=== PATIENT | male | born 1940 | race Two or more races ===

== ENCOUNTER 2020-09-12 08:29 | Inpatient (IN) | payer MEDICARE, SELFPAY ==
[2020-09-12] VITALS (14 sets, daily range): BP systolic 104–146; BP diastolic 64–101; PULSE 72–145; RESP 15–20; TEMP 36.3–37.2; O2SAT 94–99; BMI 28.8
--- NOTE | 2020-09-12 08:49 | XR_ITS ---
EXAMINATION: XR CHEST CLINICAL INFORMATION: Chest pain COMPARISON: Chest radiographs 06/14/2019 TECHNIQUE: Portable upright AP view of the chest was obtained. FINDINGS: There is mild coarsening bronchiolar markings. No airspace consolidation or definite groundglass opacity or effusion. The heart is normal in size. The vascularity is normal. The hilar and mediastinal contours are unremarkable. No visible acute bony abnormality. XR/XR chest 1V IMPRESSION: Mild coarsening medial markings. Lungs otherwise clear.
--- NOTE | 2020-09-12 08:49 | ECG_ITS ---
Test Reason : HIGH HR Blood Pressure : / mmHG Vent. Rate : 143 BPM Atrial Rate : 286 BPM P-R Int : 000 ms QRS Dur : 072 ms QT Int : 302 ms P-R-T Axes : 257 028 -19 degrees QTc Int : 466 ms Atrial flutter with 2:1 A-V conduction Abnormal ECG When compared with ECG of 14-JUN-2019 17:20, Atrial flutter has replaced Sinus rhythm Vent. rate has increased BY 47 BPM Non-specific change in ST segment in Inferior leads Referred By: Generic ED Physician Electronically Signed By:Onofre Gomez
--- NOTE | 2020-09-12 08:54 | ED.CHESTPAIN ---
HPI - Chest Pain General Chief Complaint: Chest Pain Stated Complaint: chest pain Time Seen by Provider: 09/12/20 08:54 Source: patient Mode of arrival: ambulatory Limitations: no limitations History of Present Illness HPI narrative: chest pain last night at rest lasted a few hours then went away on his own. convinced him to come in this morning complaint: chest heaviness Onset (ago): hour(s) Timing of current episode: constant Pain location: substernal Pain radiation: other (upper chest) Severity: mild Quality: tightness Exacerbating factors: nothing Risk Factors Coronary artery disease risk factors: hypertension Related Data Allergies Allergy/AdvReac Type Severity Reaction Status Date / Time avocado [AVOCADO] Allergy Severe DIFFICULTY Unverified 06/15/20 14:52 BREATHING Review of Systems Constitutional: Constitutional: Reports no additional constitutional complaints Eyes: Eyes: Reports no additional eye complaints ENT: Denies dizziness Cardiovascular: Cardiovascular: Reports no additional cardiovascular complaints Respiratory: Respiratory: Reports as per HPI Gastrointestinal: Gastrointestinal: Reports no additional gastrointestinal complaints Musculoskeletal: Musculoskeletal: Reports no additional musculoskeletal complaints Integumentary/Breasts: Skin/Breast: Denies rash Neurologic: Reports system reviewed and no additional complaints, except as documented, Denies dizziness and Denies Sensory deficit (Neuro) Psychiatric: Psychiatric: Denies anxiety [facility] Past Medical History Medical History (Updated 09/12/20 @ 11:07 by Aram Vincent MD) Amputation of left index finger Hyperlipidemia Hypertension Family History Family History (Updated 09/12/20 @ 11:06 by Laura South NP) Other Hypertension Social History Social History Household Members: Spouse Alcohol intake: current Alcohol intake frequency: holidays/special occasions only Smoking Status: Never smoker Use of substances other than those prescribed or required for medical reasons: No Advance Directives: No Advance Directives Information Provided: No Physical Exam Vital Signs: Vital Signs: Last Vital Signs Temp 97.6 F 09/12/20 08:34 Pulse 85 09/12/20 10:49 Resp 18 09/12/20 10:49 BP 118/76 09/12/20 10:49 Pulse Ox 97 09/12/20 10:49 Body Mass Index 28.8 Const: General: healthy appearing Nutritional Appearance: average body habitus Orientation/consciousness: oriented to person and patient oriented x3 Limitations: no limitations HENMT: Head: Yes normal to inspection Ears: external ears normal General nose exam: Normal external nose present Mouth: Normal oral and palatal mucosa present and oropharynx normal Throat: Yes posterior oropharynx normal Eyes: General: appearance normal, both eyes and all related structures Neck: Other: supple Neck: Yes normal visual inspection Chest: Chest palpation & inspection: normal inspection of the chest Resp: Auscultation: clear to auscultation bilaterally Cardio: Jugular venous distension: no JVD Rate: tachycardic Rhythm: regular rhythm GI: Inspection: Yes normal to inspection Palpation (GI): Soft to palpation, nontender and No hepatosplenomegaly present Auscultation: normal bowel sounds : General: Yes no CVA tenderness Back/Spine/Pelvis: Back: no CVA tenderness Skin: General skin exam: no rashes or lesions noted Neuro: General: oriented to person and patient oriented x3 Cranial nerves: Yes CN's II-XII intact bilaterally Motor exam (neuro): 5/5 motor strength present throughout Sensory Exam: No Sensory deficit (Neuro) Extrem: General: Yes normal to inspection Psych: Appearance: grossly normal Course Course Course Narrative: Patient now in slow atrial flutter will admit MDM - Chest Pain Differential Diagnosis Differential diagnosis: Likely unstable angina pectoris and chest pain Differential diagnosis: atrial flutter Lab Data Result diagrams: 09/12/20 09:06 09/12/20 09:06 Labs: Lab Results 09/12/20 09/12/20 09/12/20 Range/Units 09:06 09:06 09:06 WBC 6.1 (4.8-10.8) X10*3/uL RBC 3.69 L (4.60-5.80) X10*6/uL Hgb 13.1 L (14.0-18.0) g/dl Hct 38.3 L (42-52) % MCV 103.8 H (80-98) fL MCH 35.5 H (27.0-33.0) pg MCHC 34.2 (31.0-36.0) g/dl RDW 12.6 (11.0-16.0) % Plt Count 136 L (160-400) X10*3/uL MPV 10.3 (9.4-12.4) fL Immature Gran % (Auto) 0.3 (0.0-0.4) % Neut % (Auto) 74.5 H (45-73) % Lymph % (Auto) 14.8 L (20-40) % [place] % (Auto) 8.8 (2-11) % Eos % (Auto) 1.1 (0-4) % Baso % (Auto) 0.5 (0-2) % Lymph # (Auto) 0.9 L (1.2-4.9) X10*3/uL [place] # (Auto) 0.5 (0.1-1.2) X10*3/uL Eos # (Auto) 0.1 (0.0-0.4) X10*3/uL Baso # (Auto) 0.0 (0.0-0.2) X10*3/uL Abs Immat Gran (auto) 0.02 (0.00-0.03) X10*3/uL Absolute Neuts (auto) 4.6 (2.0-8.3) X10*3/uL Absolute Nucleated RBC 0.000 (0.0-0.012) X10*3/uL Nucleated RBC % (auto) 0.0 (0.0-0.2) /100WBC PT (10.8-13.0) SEC INR (0.9-1.1) APTT (24.1-38.0) SEC Hold Blue Top Cancelled Sodium 131 L (135-145) mmol/L Potassium 4.8 (3.3-5.1) mmol/l Chloride 103 (96-108) mmol/L Carbon Dioxide 18 L (22-29) mmol/L Anion Gap 15 (12-20) BUN 17 H (9-16) mg/dL Creatinine 1.44 H (0.5-1.4) mg/dL Estim Creat Clear Calc 41.6 Estimated GFR 47 Random Glucose 187 H (60-115) mg/dL Calcium 8.0 L (8.4-10.2) mg/dL Troponin I High Sens (<3.5-35.0) ng/L COVID-19 ([facility]UAN ANTONIO) (Negative) COVID-19 Clin Com 09/12/20 09/12/20 09/12/20 Range/Units 09:06 09:08 10:16 WBC (4.8-10.8) X10*3/uL RBC (4.60-5.80) X10*6/uL Hgb (14.0-18.0) g/dl Hct (42-52) % MCV (80-98) fL MCH (27.0-33.0) pg MCHC (31.0-36.0) g/dl RDW (11.0-16.0) % Plt Count (160-400) X10*3/uL MPV (9.4-12.4) fL Immature Gran % (Auto) (0.0-0.4) % Neut % (Auto) (45-73) % Lymph % (Auto) (20-40) % [place] % (Auto) (2-11) % Eos % (Auto) (0-4) % Baso % (Auto) (0-2) % Lymph # (Auto) (1.2-4.9) X10*3/uL [place] # (Auto) (0.1-1.2) X10*3/uL Eos # (Auto) (0.0-0.4) X10*3/uL Baso # (Auto) (0.0-0.2) X10*3/uL Abs Immat Gran (auto) (0.00-0.03) X10*3/uL Absolute Neuts (auto) (2.0-8.3) X10*3/uL Absolute Nucleated RBC (0.0-0.012) X10*3/uL Nucleated RBC % (auto) (0.0-0.2) /100WBC PT 17.6 H (10.8-13.0) SEC INR 1.5 H (0.9-1.1) APTT 36.8 (24.1-38.0) SEC Hold Blue Top Sodium (135-145) mmol/L Potassium (3.3-5.1) mmol/l Chloride (96-108) mmol/L Carbon Dioxide (22-29) mmol/L Anion Gap (12-20) BUN (9-16) mg/dL Creatinine (0.5-1.4) mg/dL Estim Creat Clear Calc Estimated GFR Random Glucose (60-115) mg/dL Calcium (8.4-10.2) mg/dL Troponin I High Sens 7.9 (<3.5-35.0) ng/L COVID-19 ([facility]UAN ANTONIO) Negative (Negative) COVID-19 Clin Com See Note ECG Data ECG #1: Attestation: I personally reviewed and interpreted this ECG as follows: Interpretation: Atrial flutter rate 150, no st or twave changes Critical Care Time Critical Care Time Critical Care Time: Yes Total Critical Care Time: 35 Attestation: I spent 35 minutes of critical care, with interventions, assessments, speaking to patient, consultants, and family. Discharge Plan Discharge Clinical Impression: Chest pain, Atrial flutter Patient Disposition: Admitted As Inpatient
[2020-09-12 09:12] LABS: MANUAL DIFF FLAG NO
[2020-09-12] MEDS: Aspirin Enteric Coated 81 MG TABLET.DR 162 MG PO (09:15)
[2020-09-12] MEDS: Enoxaparin Sodium 100 MG/ML SYRINGE 80 MG SUBCUT (09:16)
[2020-09-12] MEDS: dilTIAZem HCL 50 MG/10 ML VIAL 10 MG IVPUSH (09:17)
[2020-09-12] MEDS: dilTIAZem HCL 125 MG in 0.9 % Sodium Chloride 100 ML 10 MG IVCONT (09:18)
[2020-09-12 09:25] LABS: INTERNATIONAL NORM RATIO 1.5 (0.9-1.1); Prothrombin Time 17.6 SEC (10.8-13.0)
[2020-09-12 09:25] LABS: Basophils Percent Auto 0.5 % (0-2); Eosinophils Absolute Auto 0.1 X10*3/uL (0.0-0.4); Eosinophils Percent Auto 1.1 % (0-4); Hematocrit 38.3 % (42-52); Hemoglobin 13.1 g/dl (14.0-18.0); Imm Gran Abs Auto 0.02 X10*3/uL (0.00-0.03); Imm Gran Pct Auto 0.3 % (0.0-0.4); Lymphocytes Absolute Auto 0.9 X10*3/uL (1.2-4.9); Lymphocytes Percent Auto 14.8 % (20-40); Mean Corpuscular HGB Conc 34.2 g/dl (31.0-36.0); Mean Corpuscular Hemoglobin 35.5 pg (27.0-33.0); Mean Corpuscular Volume 103.8 fL (80-98); Mean Platelet Volume 10.3 fL (9.4-12.4); Monocytes Absolute Auto 0.5 X10*3/uL (0.1-1.2); Monocytes Percent Auto 8.8 % (2-11); Neutrophils Absolute Auto 4.6 X10*3/uL (2.0-8.3); Neutrophils Percent Auto 74.5 % (45-73); Platelet Count 136 X10*3/uL (160-400); Red Blood Count 3.69 X10*6/uL (4.60-5.80); Red Cell Distribution Width 12.6 % (11.0-16.0); White Blood Count 6.1 X10*3/uL (4.8-10.8)
[2020-09-12 09:27] LABS: Partial Thromboplastin Time 36.8 SEC (24.1-38.0)
[2020-09-12 09:51] LABS: Anion Gap 15 (12-20); Blood Urea Nitrogen 17 mg/dL (9-16); Carbon Dioxide 18 mmol/L (22-29); Chloride 103 mmol/L (96-108); Creatinine Clr Calc Pharmacy 41.6; Estimated Glomerular Filt Rate 47; Glucose Random 187 mg/dL (60-115); Potassium 4.8 mmol/l (3.3-5.1); Sodium 131 mmol/L (135-145)
--- NOTE | 2020-09-12 09:55 | PC.NURSE ---
S/P Cardizem bolus and gtt intiated HR now 90s, BP has trended down SBP 125 Pt continues to feel asymptomatic. Dr Vincent updated.
[2020-09-12 09:57] LABS: Troponin-I High Sensitivity 7.9 ng/L (<3.5-35.0)
--- NOTE | 2020-09-12 10:14 | PC.NURSE ---
Cardizem gtt decresed to 5mg/hr
[2020-09-12 10:39] LABS: COVID-19 Test Negative (Negative)
--- NOTE | 2020-09-12 11:03 | PM.IMHP ---
History of Present Illness Date of Service: 09/12/20 <Laura South NP - Last Filed: 09/12/20 12:24> Chief Complaint: Chest pressure <Laura South NP - Last Filed: 09/12/20 12:24> 80 year old man Presenting with chest pressure that started this morning. He reported no radiation or other associated symptoms. He denies any history of cardiac disease. in May of 2019 patient was admitted for palpitations and was found to have new onset atrial fibrillation with rapid ventricular response. He underwent synchronized cardioversion and was started on amiodarone drip. He was discharged on amiodarone and no anticoagulation likely due to history of GI bleed And alcohol use at the time. He denies any discomfort at this time. Upon arrival to the ER he was found to be in atrial flutter with heart rate in the 140s. His heart rate has improved significantlyHis initial troponin was 7.9. He was noted to have mildly decreased sodium of 131. Chronic kidney disease. Coronavirus PCR negative. He was given a dose of aspirin, therapeutic Lovenox and started on diltiazem drip. He be admitted for further management treatment of new onset atrial flutter. <Laura South NP - Last Filed: 09/12/20 12:24> Review of Systems Review of Systems: Denies any recent fever chills or decrease in appetite respiratory denies any shortness of breath coverage production cardiovascular See above gastrointestinal denies any dysphagia abdominal pain nausea vomiting or diarrhea genitourinary denies any dysuria frequency or hematuria musculoskeletal denies any joint pain or swelling neuropsych denies any weakness or seizures all other systems reviewed are negative <Laura South NP - Last Filed: 09/12/20 12:24> ENT: Denies dizziness <Laura South NP - Last Filed: 09/12/20 12:24> Neurologic: Reports system reviewed and no additional complaints, except as documented, Denies dizziness and Denies Sensory deficit (Neuro) <Laura South NP - Last Filed: 09/12/20 12:24> [facility] Medical History: Medical History Amputation of left index finger Hyperlipidemia Hypertension <MIKKI Clemens Last Filed: 09/12/20 12:24> Family History: Family History (Updated 09/12/20 @ 11:06 by Laura South NP) Other Hypertension <Laura South NP - Last Filed: 09/12/20 12:24> Social History: Social History (Updated 09/12/20 @ 11:07 by Laura South NP) Household Members: Spouse and Family Housing: House Alcohol intake: current Alcohol intake frequency: holidays/special occasions only Smoking Status: Never smoker service: No Current occupational status: retired <Laura South NP - Last Filed: 09/12/20 12:24> Meds Allergies/Adverse reactions: Allergies Allergy/AdvReac Type Severity Reaction Status Date / Time avocado [AVOCADO] Allergy Severe DIFFICULTY Verified 09/12/20 21:12 BREATHING <Laura South NP - Last Filed: 09/12/20 12:24> Home medications: Home Medications Medication Instructions Recorded Confirmed Type cyanocobalamin (vitamin B-12) 1,000 mcg PO DAILY 09/12/20 09/12/20 History folic acid 1 mg PO DAILY 09/12/20 09/12/20 History thiamine HCl (vitamin B1) 100 mg PO DAILY 09/12/20 09/12/20 History <Laura South NP - Last Filed: 09/12/20 12:24> Physical Exam Vital Signs and Narrative: Vital Signs: Last Vital Signs Temp 97.6 F 09/12/20 08:34 Pulse 85 09/12/20 10:49 Resp 18 09/12/20 10:49 BP 118/76 09/12/20 10:49 Pulse Ox 97 09/12/20 10:49 Body Mass Index 28.8 <Laura South NP - Last Filed: 09/12/20 12:24> Appearing in no acute distress head is normocephalic atraumatic eyes pupils are PERRLA sclera is anicteric mouth throat mucous membranes are intact and moist neck is supple no lymphadenopathy, no JVD noted lung sounds are clear to auscultation heart regular rate irregularly irregular positive bowel sounds, abdomen is soft, nontender neuro patient is alert x3, no focal deficits <Laura South NP - Last Filed: 09/12/20 12:24> Neuro: Sensory Exam: No Sensory deficit (Neuro) <Laura South NP - Last Filed: 09/12/20 12:24> Results Labs CBC and Chem 7: : 09/17/20 05:59 09/16/20 08:50 <Laura South NP - Last Filed: 09/12/20 12:24> Labs: Laboratory Results - last 24 hr 09/12/20 09/12/20 09/12/20 09:06 09:06 09:06 MCV 103.8 H MCH 35.5 H MCHC 34.2 RDW 12.6 Plt Count 136 L MPV 10.3 Immature Gran % (Auto) 0.3 Neut % (Auto) 74.5 H Lymph % (Auto) 14.8 L [place] % (Auto) 8.8 Eos % (Auto) 1.1 Baso % (Auto) 0.5 Lymph # (Auto) 0.9 L [place] # (Auto) 0.5 Eos # (Auto) 0.1 Baso # (Auto) 0.0 Abs Immat Gran (auto) 0.02 Absolute Neuts (auto) 4.6 Absolute Nucleated RBC 0.000 Nucleated RBC % (auto) 0.0 PT INR APTT Hold Blue Top Cancelled Anion Gap 15 Creatinine 1.44 H Estim Creat Clear Calc 41.6 Estimated GFR 47 Random Glucose 187 H Calcium 8.0 L Troponin I High Sens COVID-19 ([facility] ANTONIO) COVID-19 Clin Com 09/12/20 09/12/20 09/12/20 09:06 09:08 10:16 MCV MCH MCHC RDW Plt Count MPV Immature Gran % (Auto) Neut % (Auto) Lymph % (Auto) [place] % (Auto) Eos % (Auto) Baso % (Auto) Lymph # (Auto) [place] # (Auto) Eos # (Auto) Baso # (Auto) Abs Immat Gran (auto) Absolute Neuts (auto) Absolute Nucleated RBC Nucleated RBC % (auto) PT 17.6 H INR 1.5 H APTT 36.8 Hold Blue Top Anion Gap Creatinine Estim Creat Clear Calc Estimated GFR Random Glucose Calcium Troponin I High Sens 7.9 COVID-19 (JUAN ANTONIO) Negative COVID-19 Clin Com See Note <Laura South NP - Last Filed: 09/12/20 12:24> Imaging Radiologist's Impressions: Impressions Chest X-Ray 09/12/20 08:49 IMPRESSION: Mild coarsening medial markings. Lungs otherwise clear. <Laura South NP - Last Filed: 09/12/20 12:24> Assessment and Plan (1) Atrial flutter: Qualifiers: Atrial flutter type: typical Qualified Code(s): I48.3 - Typical atrial flutter <Laura South NP - Last Filed: 09/12/20 12:24> Status: Acute <Laura South NP - Last Filed: 09/12/20 12:24> 80 year old man admitted with new atrial flutter with history of atrial fibrillation in the past. New onset atrial flutter. Patient currently on Cardizem drip with controlled rate but still in atrial flutter. Did receive 1 dose of therapeutic Lovenox in the ER. Cardiology consultation, echocardiogram. Blood pressure was elevated on admission however did improve significantly. Check Mag and TSH. Monitor on telemetry. [id number] score 3, will need to be considered for anticoagulation. Hypertension. Stable blood pressure. CKD. Seems at baseline. Avoid nephrotoxins. Anemia. Chronic. No signs of bleeding. DVT prophylaxis Heparin Case discussed with Dr. Ga Full code <Laura South NP - Last Filed: 09/12/20 12:24>
[2020-09-12 12:14] LABS: Magnesium 2.2 mg/dL (1.6-2.6)
--- NOTE | 2020-09-12 12:21 | PC.NURSE ---
PT UNABLE TO GIVE UPDATED, ACCURATE LOCATION OF PHARMACY. CALL MADE OUT TO DAUGHTER DIANDRA TO ACQUIRE LIST [phone]
--- NOTE | 2020-09-12 12:28 | PC.NURSE ---
PER VIRIDIANA, PT HAS NOT TAKEN ANY MEDICATIONS FOR SEVERAL MONTHS NOW, REFUSING TO SEE HIS PCP.
[2020-09-12 12:33] LABS: Thyroid Stimulating Hormone 0.79 uIU/mL (0.32-4.0)
--- NOTE | 2020-09-12 13:59 | PC.NURSE ---
CALLED UP TO C TO GIVE REPORT
[2020-09-12 14:50] LABS: Troponin-I High Sensitivity 6.6 ng/L (<3.5-35.0)
[2020-09-12 14:52] LABS: Ethanol < 10 mg/dL
--- NOTE | 2020-09-12 15:54 | PM.EVENT ---
Event Note Date of Service: 09/12/20 Event Note: admission note the patient was seen and evaluated with Laura South NP. I agree with her note, assessment and plan with the following. A 80 years old lady with PMHx of HTN, HLD , AFib not on AC for GI bleed who presented to the hospital complaining of chest pressure since the morning. denies nausea, vomiting or shortness of breath. found to be in A.Flutter in ED w RvR. started on Cardizem drip and full dose Lovenox. A.Flutter w RvR Continue Cardizem drip To hold anticoagulation after the 1st dose of Lovenox Given telemetry To get cardiology evaluation Rest of evaluations by ATHLETIC EQUIPMENT CUSTODIAN note.
[2020-09-12 17:33] LABS: Glucose, Whole Blood 124 mg/dL (60-115)
[2020-09-12] MEDS: Heparin Sodium,Porcine 5,000 UNIT/ML VIAL 5000 UNIT SUBCUT (17:47)
[2020-09-12] MEDS: 0.9 % Sodium Chloride Flush 3 ML SYRINGE IVFLUSH (17:47)
[2020-09-13] VITALS (10 sets, daily range): BP systolic 101–157; BP diastolic 67–93; PULSE 62–133; RESP 16–20; TEMP 36.1–37; O2SAT 94–100
--- NOTE | 2020-09-13 | CT_ITS ---
CT HEAD WITHOUT CONTRAST CLINICAL INFORMATION: Altered mental status. Atrial fibrillation. Rule out stroke. COMPARISON: Head CT 06/14/2019. TECHNIQUE: Contiguous axial imaging was performed from the skull base to vertex without intravenous administration of contrast. This CT examination was performed using dose optimization techniques as appropriate, variously including the following: *Automated exposure control *Adjustment of mA and/or kV according to patient size (this includes techniques or standardized protocols for targeted exams where dose is matched to indication/reason for exam; i.e. extremities or head) *Use of iterative reconstruction technique FINDINGS: There is temporal lobe predominant cerebral volume loss and there is mild chronic microangiopathy. No dense cerebral artery sign. There is no intracranial hemorrhage, hydrocephalus, extra-axial surface collection, midline shift, or other herniation pattern. [place] to white matter differentiation is diffusely maintained without evidence of an evolved acute territorial infarct. The basilar cisterns are preserved. Fatty replacement of the right parotid gland. No acute osseous abnormality. The paranasal sinuses and the mastoid air cells are well aerated. CT/CT head/brain wo con IMPRESSION: - No acute intracranial findings. - There is temporal lobe predominant cerebral volume loss and there is mild chronic microangiopathy.
[2020-09-13] MEDS: 0.9 % Sodium Chloride Flush 3 ML SYRINGE IVFLUSH (00:38)
[2020-09-13] MEDS: dilTIAZem HCL 125 MG in 0.9 % Sodium Chloride 100 ML 10 MG IVCONT (01:35)
[2020-09-13] MEDS: Metoprolol Tartrate 5 MG/5 ML VIAL IVPUSH (03:42)
[2020-09-13] MEDS: Heparin Sodium,Porcine 5,000 UNIT/ML VIAL 5000 UNIT SUBCUT (03:45)
--- NOTE | 2020-09-13 06:12 | MHC.PIE ---
P: HR 130-133 Aflutter, asymptomatic. BP stable I: Restart cardizem drip at 0112, Maxed at 15mg/hr since 244, Dr Villanueva made aware, HR still 130's. Dr Villanueva ordered 5mg IVP lopressor now. Lopressor given?@ 341.? E: BP remained stable with lopressor administration. HR down to 80's - 90's, Aflutter. BP stable, see VS.?@ 0420, HR 60'S.? I: Titrate cardizem down - see MAR documentation? E: HR staying 63, aflutter?@ 5mg/hr
[2020-09-13 08:07] LABS: MANUAL DIFF FLAG NO
[2020-09-13 08:09] LABS: Basophils Percent Auto 0.5 % (0-2); Eosinophils Absolute Auto 0.2 X10*3/uL (0.0-0.4); Eosinophils Percent Auto 2.4 % (0-4); Hematocrit 41.1 % (42-52); Hemoglobin 13.9 g/dl (14.0-18.0); Imm Gran Abs Auto 0.03 X10*3/uL (0.00-0.03); Imm Gran Pct Auto 0.4 % (0.0-0.4); Lymphocytes Percent Auto 13.7 % (20-40); Mean Corpuscular HGB Conc 33.8 g/dl (31.0-36.0); Mean Corpuscular Hemoglobin 35.5 pg (27.0-33.0); Mean Corpuscular Volume 104.8 fL (80-98); Mean Platelet Volume 10.7 fL (9.4-12.4); Monocytes Absolute Auto 0.7 X10*3/uL (0.1-1.2); Monocytes Percent Auto 8.7 % (2-11); Neutrophils Absolute Auto 5.5 X10*3/uL (2.0-8.3); Neutrophils Percent Auto 74.3 % (45-73); Platelet Count 175 X10*3/uL (160-400); Red Blood Count 3.92 X10*6/uL (4.60-5.80); Red Cell Distribution Width 12.6 % (11.0-16.0); White Blood Count 7.4 X10*3/uL (4.8-10.8)
[2020-09-13 08:45] LABS: Anion Gap 16 (12-20); Blood Urea Nitrogen 17 mg/dL (9-16); Calcium 8.4 mg/dL (8.4-10.2); Carbon Dioxide 20 mmol/L (22-29); Chloride 98 mmol/L (96-108); Estimated Glomerular Filt Rate 52; Glucose Random 107 mg/dL (60-115); Potassium 4.5 mmol/l (3.3-5.1); Sodium 129 mmol/L (135-145)
[2020-09-13 09:24] LABS: INTERNATIONAL NORM RATIO 1.4 (0.9-1.1); Prothrombin Time 17.2 SEC (10.8-13.0)
[2020-09-13] MEDS: Apixaban 5 MG TABLET PO ×2 (10:36→22:19)
[2020-09-13] MEDS: Metoprolol Tartrate 25 MG TABLET PO ×3 (10:36→22:20)
--- NOTE | 2020-09-13 11:52 | MHC.CM.PN ---
CM met with patient at the bedside who reports he is independent and lives with his spouse. Patient does not have a HCP and declines to fill one out today after education. Discussed discharge plan, home no services. Family will provide transport. CM will continue to follow patient for discharge needs.
[2020-09-13] MEDS: dilTIAZem HCL 125 MG in 0.9 % Sodium Chloride 100 ML IVCONT (13:12)
--- NOTE | 2020-09-13 13:36 | PM.CNCAR ---
History of Present Illness History of Present Illness Date of Service: 09/13/20 Requesting physician: Macho Marte Chief complaint: new aflutter Narrative: [age] year gentleman presenting with the fluttering sensation in the chest. He was found to have atrial flutter with rapid ventricular response. He was started on Cardizem drip but heart rate continues to be elevated. He said he was cleaning some leaves outside when he started feeling fluttering sensation in his chest. He came back inside the house. His told him to come to the emergency department. He has no chest pain otherwise or shortness of breath. Denies orthopnea PND. He has amputation of all the fingers on the left hand from a work-related injury many many years ago. There is some documentation about GI bleed but he is denying that he had any bleeding issues in the past. In particular no recent GI or bleeding. Review of Systems Review of Systems: No symptoms Yes all other systems are reviewed and are negative ENT: Denies dizziness Neurologic: Reports system reviewed and no additional complaints, except as documented and Denies dizziness PMFSH Past Medical History Medical History Amputation of left index finger Hyperlipidemia Hypertension Family History Family History (Updated 09/12/20 @ 11:06 by Laura South NP) Other Hypertension Social History Social History (Updated 09/12/20 @ 11:07 by Laura South NP) Household Members: Spouse and Family Housing: House Alcohol intake: current Alcohol intake frequency: holidays/special occasions only Smoking Status: Never smoker Use of substances other than those prescribed or required for medical reasons: No Have you been hit, kicked, punched, or otherwise hurt by someone within the past year? If so, by whom?: No Do you feel safe in your current relationship?: Yes Is there a partner from a previous relationship who is making you feel unsafe now?: No Are you made to feel afraid or neglected: No Advance Directives: No Advance Directives Information Provided: No Do you have thoughts of harming others: None Do you have a plan to hurt others: No Plan Recently lost weight without trying: No service: No Current occupational status: retired Meds Allergies Allergy/AdvReac Type Severity Reaction Status Date / Time avocado [AVOCADO] Allergy Severe DIFFICULTY Verified 09/12/20 21:12 BREATHING Home Medications Medication Instructions Recorded Confirmed Type amiodarone 200 mg PO BID 09/12/20 09/12/20 History cyanocobalamin (vitamin B-12) 1,000 mcg PO DAILY 09/12/20 09/12/20 History folic acid 1 mg PO DAILY 09/12/20 09/12/20 History thiamine HCl (vitamin B1) 100 mg PO DAILY 09/12/20 09/12/20 History Physical Exam Vital Signs: Vital Signs: Last Vital Signs Temp 98.0 F 09/13/20 11:21 Pulse 126 H 09/13/20 11:21 Resp 16 09/13/20 11:21 BP 130/88 09/13/20 11:21 Pulse Ox 99 09/13/20 11:21 Body Mass Index 28.8 GENERAL APPEARANCE: in no acute distress, well developed, well nourished. HEENT: unremarkable. HEAD: normocephalic, atraumatic. NECK/THYROID: no carotid bruit, no jugular venous distention. SKIN: no suspicious lesions, warm and dry. HEART: no murmurs, regular tachycardia, S1, S2 normal. LUNGS: clear to auscultation bilaterally. ABDOMEN: normal, bowel sounds present, soft, nontender, nondistended. EXTREMITIES: no clubbing, cyanosis, or edema. 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 PERIPHERAL PULSES: equal. NEUROLOGIC: nonfocal, alert and oriented. PSYCH: mood/affect full range. Results Labs and Meds Result diagrams: 09/13/20 07:04 09/13/20 07:04 Lab results: Laboratory Results - last 24 hr 09/12/20 09/12/20 09/12/20 14:17 14:17 17:00 WBC RBC Hgb Hct MCV MCH MCHC RDW Plt Count MPV Immature Gran % (Auto) Neut % (Auto) Lymph % (Auto) [place] % (Auto) Eos % (Auto) Baso % (Auto) Lymph # (Auto) [place] # (Auto) Eos # (Auto) Baso # (Auto) Abs Immat Gran (auto) Absolute Neuts (auto) Absolute Nucleated RBC Nucleated RBC % (auto) PT INR Sodium Potassium Chloride Carbon Dioxide Anion Gap BUN Creatinine Estim Creat Clear Calc Estimated GFR POC Glucose 124 H Random Glucose Calcium Troponin I High Sens 6.6 Ethyl Alcohol < 10 09/13/20 09/13/20 09/13/20 07:04 07:04 08:36 WBC 7.4 RBC 3.92 L Hgb 13.9 L Hct 41.1 L MCV 104.8 H MCH 35.5 H MCHC 33.8 RDW 12.6 Plt Count 175 D MPV 10.7 Immature Gran % (Auto) 0.4 Neut % (Auto) 74.3 H Lymph % (Auto) 13.7 L [place] % (Auto) 8.7 Eos % (Auto) 2.4 Baso % (Auto) 0.5 Lymph # (Auto) 1.0 L [place] # (Auto) 0.7 Eos # (Auto) 0.2 Baso # (Auto) 0.0 Abs Immat Gran (auto) 0.03 Absolute Neuts (auto) 5.5 Absolute Nucleated RBC 0.000 Nucleated RBC % (auto) 0.0 PT 17.2 H INR 1.4 H Sodium 129 L Potassium 4.5 Chloride 98 Carbon Dioxide 20 L Anion Gap 16 BUN 17 H Creatinine 1.33 Estim Creat Clear Calc 45.0 Estimated GFR 52 POC Glucose Random Glucose 107 D Calcium 8.4 Troponin I High Sens Ethyl Alcohol Assessment and Plan (1) Atrial flutter: Qualifiers: Atrial flutter type: typical Qualified Code(s): I48.3 - Typical atrial flutter Status: Acute (2) Chest pain: Qualifiers: Chest pain type: unspecified Qualified Code(s): R07.9 - Chest pain, unspecified Status: Acute [age] gentleman who is presenting with fluttering sensation in the chest and found to have atrial flutter. He is not describing any chest discomfort per se and mostly disc try being flutter like sensation in the chest. He was started on Cardizem drip but his heart rate disc still quite fast. Classically flutter is difficult to control and most the time beta-sparkle and digoxin combination works the best. I am adding him metoprolol 25 mg 3 times a day. I think we would load him with digoxin and stop the Cardizem drip because Cardizem is not working. Clinically not in heart failure. We will check echocardiogram to assess LV for any structural issues once he slows down. On discussion with him he has no bleeding issues that he recalls or has right now. He has stroke risk and I think he should be started on anticoagulation. Please start him on Eliquis. Thank you for allowing me to participate in the care of your patient. Please feel free to contact me if you have any questions.
[2020-09-13] MEDS: LORazepam 2 MG/ML VIAL 0.25 MG IM ×2 (13:51→14:05)
--- NOTE | 2020-09-13 14:27 | PC.NURSE ---
Addendum entered by Nella Villela RN 09/13/20 18:39: SPOKE WITH DAUGHTER DIANDRA, PER DAUGHTER PATIENT'S IS INTERMITTENTLY CONFUSED AT BASELINE AND THIS CONFUSION IS NOT A NEW ONSET. Original Note: PATIENT WITH NEW ONSET CONFUSION, RESTLESS, PULLED OUT IV, AND RESISTIVE TO CARE. DR MICHEL MADE AWARE AND AT BEDSIDE, PATIENT GIVEN IM ATIVAN AND CT OF HEAD DONE, AWAITING RESULTS. TELE VIDEO MONITOR AT BEDSIDE, BED ALARM IN USE, BED IN LOW POSITION, AND HIGH RISK PROTOCOL IN PLACE.
--- NOTE | 2020-09-13 15:36 | HO.PM.IMPN ---
Subjective Subjective Date of Service: 09/14/20 Interval History: Patient seen and examined at bedside Patient was fine in the morning became more confused later during the day Discussed with daughter reported patient has periods of confusion, reported patient drinks daily , Per daughter patient does not drink but not much , last drink was Friday Review of Systems Denies any recent fever chills or decrease in appetite respiratory denies any shortness of breath gastrointestinal denies any dysphagia abdominal pain nausea vomiting or diarrhea genitourinary denies any dysuria frequency or hematuria musculoskeletal denies any joint pain or swelling neuropsych denies any weakness or seizures all other systems reviewed are negative Constitutional Constitutional: Reports no additional constitutional complaints Eyes Eyes: Reports no additional eye complaints ENT Ears, Nose, Mouth, and Throat: Denies dizziness Cardiovascular Cardiovascular: Reports no additional cardiovascular complaints Respiratory Respiratory: Reports as per HPI Gastrointestinal Gastrointestinal: Reports no additional gastrointestinal complaints Musculoskeletal Musculoskeletal: Reports no additional musculoskeletal complaints Integumentary/Breasts Skin/Breast: Denies rash Neurologic Neurologic: Reports system reviewed and no additional complaints, except as documented, Denies dizziness and Denies Sensory deficit (Neuro) Psychiatric Psychiatric: Denies anxiety Physical Exam Vital Signs: Vital Signs: Last Vital Signs Temp 98.0 F 09/13/20 11:21 Pulse 110 H 09/13/20 14:25 Resp 16 09/13/20 11:21 BP 132/82 09/13/20 14:25 Pulse Ox 99 09/13/20 11:21 Body Mass Index 28.8 Const: General: healthy appearing Nutritional Appearance: average body habitus Orientation/consciousness: oriented to person, oriented to time and patient oriented x3 Limitations: no limitations HENMT: Head: Yes normal to inspection Ears: external ears normal General nose exam: Normal external nose present Mouth: Normal oral and palatal mucosa present and oropharynx normal Throat: Yes posterior oropharynx normal Eyes: General: appearance normal, both eyes and all related structures Neck: Other: supple Neck: Yes normal visual inspection Chest: Chest palpation & inspection: normal inspection of the chest Resp: Auscultation: clear to auscultation bilaterally Cardio: Jugular venous distension: no JVD Rate: tachycardic Rhythm: regular rhythm GI: Inspection: Yes normal to inspection Palpation (GI): Soft to palpation, nontender and No hepatosplenomegaly present Auscultation: normal bowel sounds : General: Yes no CVA tenderness Back/Spine/Pelvis: Back: no CVA tenderness Skin: General skin exam: no rashes or lesions noted Neuro: General: oriented to person, oriented to time and patient oriented x3 Cranial nerves: Yes CN's II-XII intact bilaterally Motor exam (neuro): 5/5 motor strength present throughout Sensory Exam: No Sensory deficit (Neuro) Extrem: General: Yes normal to inspection Psych: Appearance: grossly normal Objective Data Current Medications Generic Name Dose Route Start Last Admin Trade Name Freq PRN Reason Stop Dose Admin Acetaminophen 650 mg 09/12/20 15:51 Acetaminophen 325 Mg Tablet PO Q6H PRN Pain, Mild (Pain Scale 1-3) Apixaban 5 mg 09/13/20 10:30 09/13/20 10:36 Apixaban 5 Mg Tablet PO 5 mg BID LEONEL Administration Diltiazem HCl 125 mg/ Sodium 125 mls @ 0 mls/hr 09/12/20 09:00 09/13/20 15:31 Chloride IVCONT 5 mg/hr .Q0M LEONEL 5 mls/hr Titration Protocol Per Protocol Metoprolol Tartrate 25 mg 09/13/20 10:30 09/13/20 14:25 Metoprolol Tartrate 25 Mg Tablet PO 25 mg TID LEONEL Administration Protocol Ondansetron HCl 4 mg 09/12/20 15:51 Ondansetron Hcl 4 Mg/2 Ml Vial IVPUSH Q8H PRN Nausea and Vomiting Pharmacy Consult 1 each 09/12/20 12:04 Consult Rx Perform Med Rec MISCELLANE ONCE PRN Consult order Pharmacy Consult 6 each 09/13/20 15:32 Consult Rx Etoh Phenob Dosing MISCELLANE 09/13/20 15:33 ONCE ONE Protocol Sodium Chloride 3 ml 09/12/20 16:00 09/13/20 14:25 0.9 % Sodium Chloride Flush 3 Ml Syringe IVFLUSH Not Given QSHIFT [facility] Labs CBC & Chem 7: 09/14/20 10:12 09/14/20 10:12 Assessment and Plan (1) Atrial flutter: Status: Acute Assessment and Plan: 80 year old man admitted with new atrial flutter with history of atrial fibrillation in the past. Atrial flutter with RVR still in AFib heart rate in 130s to 140s continue Cardizem drip. seen by Cardiology added Lopressor monitor on telemetry started on Eliquis Confusion , patient became more confused today likely alcohol withdrawal , vs worsening dementia or sundowning reporting patient drinks alcohol, per daughter patient does drink but not much patient is scoring high on CIWA received Ativan and Haldol but still very confused and restless out IV will place on low-dose phenobarbital monitor on telemetry Hypertension. Stable blood pressure. CKD. Seems at baseline. Avoid nephrotoxins. Anemia. Chronic. No signs of bleeding. DVT prophylaxis Eliquis
[2020-09-13] MEDS: Haloperidol Lactate 5 MG/ML VIAL 2 MG IVPUSH (16:06)
[2020-09-13 16:33] LABS: Alanine Aminotransferase 23 U/L (0-40); Alkaline Phosphatase 68 U/L (39-117); Aspartate Amino Transferase 33 U/L (5-37); Bilirubin Direct 0.8 mg/dL (0.0-0.5); Bilirubin Total 1.7 mg/dL (0.0-1.0); Total Protein 7.5 g/dL (6.5-8.0)
[2020-09-13 16:34] LABS: Magnesium 2.3 mg/dL (1.6-2.6)
[2020-09-13] MEDS: PHENobarbitaL sodium 130 MG/ML VIAL 153 MG IM (17:22)
[2020-09-13] MEDS: hydrOXYzine HCL 50 MG/ML VIAL 25 MG IM (18:19)
--- NOTE | 2020-09-13 18:36 | PC.NURSE ---
PATIENT WITH INCREASED CONFUSION AND DELIRIUM THIS EVENING. PATIENT RESTLESS, REQUIRING FREQUENT RE-DIRECTIONING AND RESISTIVE TO CARE. DR. MICHEL AT BEDSIDE AND ORDERED IM PHENOBARTBITAL THAT WAS GIVEN. PATIENT WITH CONTINUE INCREASED CONFUSION, RESTLESSNESS AND AGITATION. PATIENT NOT FOLLOWING COMMANDS AND PULLED OUT IV. DR. TATUM AT BEDSIDE AND ORDERED IM ATARAX THAT WAS GIVEN. PATIENT HAS 1-1 SITTER AT BEDSIDE, BED ALARM ON AND IN LOW POSITION, WITH HIGH FALL RISK PROTOCOL IN PLACE.
--- NOTE | 2020-09-13 18:45 | PC.NURSE ---
DAUGHTER PATIENTS LESLIE JIM IS AVAILABLE TO CALL NUMBER IS [phone]
[2020-09-14] VITALS (8 sets, daily range): BP systolic 103–130; BP diastolic 52–74; PULSE 61–99; RESP 17–20; TEMP 36.6–37; O2SAT 96–98
[2020-09-14] MEDS: 0.9 % Sodium Chloride Flush 3 ML SYRINGE IVFLUSH ×3 (01:14→14:44)
[2020-09-14] MEDS: Apixaban 5 MG TABLET PO ×2 (09:43→22:23)
[2020-09-14] MEDS: Metoprolol Tartrate 25 MG TABLET PO (09:43)
[2020-09-14 10:31] LABS: MANUAL DIFF FLAG NO
[2020-09-14 10:43] LABS: Basophils Percent Auto 0.3 % (0-2); Eosinophils Absolute Auto 0.2 X10*3/uL (0.0-0.4); Eosinophils Percent Auto 2.7 % (0-4); Hematocrit 42.6 % (42-52); Hemoglobin 14.3 g/dl (14.0-18.0); Imm Gran Abs Auto 0.02 X10*3/uL (0.00-0.03); Imm Gran Pct Auto 0.3 % (0.0-0.4); Lymphocytes Absolute Auto 0.7 X10*3/uL (1.2-4.9); Lymphocytes Percent Auto 12.7 % (20-40); Mean Corpuscular HGB Conc 33.6 g/dl (31.0-36.0); Mean Corpuscular Hemoglobin 35.1 pg (27.0-33.0); Mean Corpuscular Volume 104.7 fL (80-98); Mean Platelet Volume 10.3 fL (9.4-12.4); Monocytes Absolute Auto 0.4 X10*3/uL (0.1-1.2); Monocytes Percent Auto 6.4 % (2-11); Neutrophils Absolute Auto 4.5 X10*3/uL (2.0-8.3); Neutrophils Percent Auto 77.6 % (45-73); Platelet Count 153 X10*3/uL (160-400); Red Blood Count 4.07 X10*6/uL (4.60-5.80); Red Cell Distribution Width 12.3 % (11.0-16.0); White Blood Count 5.8 X10*3/uL (4.8-10.8)
[2020-09-14 10:58] LABS: Anion Gap 14 (12-20); Blood Urea Nitrogen 21 mg/dL (9-16); Calcium 8.7 mg/dL (8.4-10.2); Carbon Dioxide 20 mmol/L (22-29); Chloride 103 mmol/L (96-108); Creatinine Clr Calc Pharmacy 43.7; Estimated Glomerular Filt Rate 50; Glucose Random 124 mg/dL (60-115); Potassium 4.5 mmol/l (3.3-5.1); Sodium 132 mmol/L (135-145)
--- NOTE | 2020-09-14 13:14 | P.PNCA_ITS ---
Subjective Subjective Date of Service: 09/14/20 Principal diagnosis: Atrial flutter Interval history: Cardiology follow up for aflutter. Seen at 1000. Today he is awake and seems appropriate on time of visit. He reports feeling well. No CP, sob, palpitation. Slept well. Offers no complaints. Sitter at his bedside. Review of Systems Review of Systems as above Yes all other systems are reviewed and are negative Physical Exam Vital Signs: Last Vital Signs Temp 97.8 F 09/14/20 11:30 Pulse 85 09/14/20 11:30 Resp 17 09/14/20 11:30 BP 130/69 09/14/20 11:30 Pulse Ox 96 09/14/20 11:30 Body Mass Index 28.8 Const General: cooperative, healthy appearing, no acute distress, alert and awake Orientation/consciousness: patient oriented x3 Neck Neck: Yes normal visual inspection and Yes no JVD Resp Effort & Inspection: normal respiratory effort, able to speak in complete sentences and not labored Auscultation: clear to auscultation bilaterally, no crackles, no rales, no rhonchi and no wheezes Cardio Palpation: normal PMI Rate: regular rate (rapid) Rhythm: regular rhythm Heart sounds: S1 normal heart sound present and S2 normal heart sound present Peripheral pulses: Peripheral pulses 2+ throughout GI Inspection: Yes normal to inspection Skin General skin exam: no rashes or lesions noted Neuro General: patient oriented x3 Extrem General: Yes normal to inspection and No edema Results Labs and Meds Result diagrams: 09/14/20 10:12 09/14/20 10:12 Lab results: Laboratory Results - last 24 hr 09/13/20 09/14/20 09/14/20 07:04 10:12 10:12 WBC 5.8 RBC 4.07 L Hgb 14.3 Hct 42.6 MCV 104.7 H MCH 35.1 H MCHC 33.6 RDW 12.3 Plt Count 153 L MPV 10.3 Immature Gran % (Auto) 0.3 Neut % (Auto) 77.6 H Lymph % (Auto) 12.7 L [place] % (Auto) 6.4 Eos % (Auto) 2.7 Baso % (Auto) 0.3 Lymph # (Auto) 0.7 L [place] # (Auto) 0.4 Eos # (Auto) 0.2 Baso # (Auto) 0.0 Abs Immat Gran (auto) 0.02 Absolute Neuts (auto) 4.5 Absolute Nucleated RBC 0.000 Nucleated RBC % (auto) 0.0 Sodium 132 L Potassium 4.5 Chloride 103 Carbon Dioxide 20 L Anion Gap 14 BUN 21 H Creatinine 1.37 Estim Creat Clear Calc 43.7 Estimated GFR 50 Random Glucose 124 H Calcium 8.7 Magnesium 2.3 Total Bilirubin 1.7 H Direct Bilirubin 0.8 H AST 33 ALT 23 Alkaline Phosphatase 68 Total Protein 7.5 Albumin 4.0 Progress Note: A&P Assessment and plan (1) Atrial flutter: Status: Acute Assessment and Plan: Hx of afib with CVR 05/2019. Now presenting with chest discomfort and noted to have atrial flutter with RVR. He was started on Diltiazem drip and Metoprolol for rate control. Tele this am shows Atrial flutter with rates averaging 90s- 118. At the time of my exam he is resting in bed and pulse 130. No clinical signs of HF. He denies CP or palpitations this am. Will stop Diltiazem drip. Will increase Metoprolol tartrate to 50mg TID, from 25mg TID. He was started on Eliquis 5 mg bid for anticoagulation, which can be continued. Echo is pending. Spent time going over diagnosis of aflutter and plan of care with him. Ongoing tele monitoring. We will follow. Fall Risk Details Current Medications: Current Medications Generic Name Dose Route Start Last Admin Trade Name Freq PRN Reason Stop Dose Admin Acetaminophen 650 mg 09/12/20 15:51 Acetaminophen 325 Mg Tablet PO Q6H PRN Pain, Mild (Pain Scale 1-3) Apixaban 5 mg 09/13/20 10:30 09/14/20 09:43 Apixaban 5 Mg Tablet PO 5 mg BID LEONEL Administration Diltiazem HCl 125 mg/ Sodium 125 mls @ 0 mls/hr 09/12/20 09:00 09/14/20 10:50 Chloride IVCONT 10 mg/hr .Q0M LEONEL 10 mls/hr Titration Protocol Per Protocol Medication 1 each 09/14/20 09:00 No Benzodiazepines MISCELLANE DAILY [facility] Metoprolol Tartrate 50 mg 09/14/20 10:45 09/14/20 10:50 Metoprolol Tartrate 25 Mg Tablet PO Not Given TID [facility] Protocol Ondansetron HCl 4 mg 09/12/20 15:51 Ondansetron Hcl 4 Mg/2 Ml Vial IVPUSH Q8H PRN Nausea and Vomiting Phenobarbital 45 mg 09/14/20 09:00 09/14/20 09:44 Phenobarbital 15 Mg Tablet PO 09/15/20 21:01 Not Given BID LEONEL Phenobarbital 15 mg 09/16/20 09:00 Phenobarbital 15 Mg Tablet PO 09/17/20 21:01 BID LEONEL Phenobarbital 15 mg 09/18/20 09:00 Phenobarbital 15 Mg Tablet PO 09/19/20 09:01 DAILY [facility] Sodium Chloride 3 ml 09/12/20 16:00 09/14/20 09:43 0.9 % Sodium Chloride Flush 3 Ml Syringe IVFLUSH 3 ml QSHIFT [facility] Administration Time Spent With Patient Time: Total time spent is greater than 50% in coordination of care (as documented) at patient's floor/unit and/or counseling patient: Time with patient: 15 - 24 minutes
[2020-09-14] MEDS: Metoprolol Tartrate 25 MG TABLET 50 MG PO ×2 (14:43→22:22)
--- NOTE | 2020-09-14 15:18 | HO.PM.IMPN ---
Subjective Subjective Date of Service: 09/14/20 Interval History: Patient seen and examined at bedside, patient is less confused today Review of Systems Constitutional Constitutional: Reports no additional constitutional complaints Eyes Eyes: Reports no additional eye complaints ENT Ears, Nose, Mouth, and Throat: Denies dizziness Cardiovascular Cardiovascular: Reports no additional cardiovascular complaints Respiratory Respiratory: Reports as per HPI Gastrointestinal Gastrointestinal: Reports no additional gastrointestinal complaints Musculoskeletal Musculoskeletal: Reports no additional musculoskeletal complaints Integumentary/Breasts Skin/Breast: Denies rash Neurologic Neurologic: Reports system reviewed and no additional complaints, except as documented, Denies dizziness and Denies Sensory deficit (Neuro) Psychiatric Psychiatric: Denies anxiety Physical Exam Vital Signs: Vital Signs: Last Vital Signs Temp 97.8 F 09/14/20 11:30 Pulse 76 09/14/20 14:43 Resp 17 09/14/20 11:30 BP 130/69 09/14/20 11:30 Pulse Ox 96 09/14/20 11:30 Body Mass Index 28.8 Const: General: healthy appearing Nutritional Appearance: average body habitus Orientation/consciousness: oriented to person, oriented to time and patient oriented x3 Limitations: no limitations HENMT: Head: Yes normal to inspection Ears: external ears normal General nose exam: Normal external nose present Mouth: Normal oral and palatal mucosa present and oropharynx normal Throat: Yes posterior oropharynx normal Eyes: General: appearance normal, both eyes and all related structures Neck: Other: supple Neck: Yes normal visual inspection Chest: Chest palpation & inspection: normal inspection of the chest Resp: Auscultation: clear to auscultation bilaterally Cardio: Jugular venous distension: no JVD Rate: tachycardic Rhythm: regular rhythm GI: Inspection: Yes normal to inspection Palpation (GI): Soft to palpation, nontender and No hepatosplenomegaly present Auscultation: normal bowel sounds : General: Yes no CVA tenderness Back/Spine/Pelvis: Back: no CVA tenderness Skin: General skin exam: no rashes or lesions noted Neuro: General: oriented to person, oriented to time and patient oriented x3 Cranial nerves: Yes CN's II-XII intact bilaterally Motor exam (neuro): 5/5 motor strength present throughout Sensory Exam: No Sensory deficit (Neuro) Extrem: General: Yes normal to inspection Psych: Appearance: grossly normal Objective Data Current Medications Generic Name Dose Route Start Last Admin Trade Name Freq PRN Reason Stop Dose Admin Acetaminophen 650 mg 09/12/20 15:51 Acetaminophen 325 Mg Tablet PO Q6H PRN Pain, Mild (Pain Scale 1-3) Apixaban 5 mg 09/13/20 10:30 09/14/20 09:43 Apixaban 5 Mg Tablet PO 5 mg BID [facility] Administration Medication 1 each 09/14/20 09:00 No Benzodiazepines MISCELLANE DAILY [facility] Metoprolol Tartrate 50 mg 09/14/20 10:45 09/14/20 14:43 Metoprolol Tartrate 25 Mg Tablet PO 50 mg TID [facility] Administration Protocol Ondansetron HCl 4 mg 09/12/20 15:51 Ondansetron Hcl 4 Mg/2 Ml Vial IVPUSH Q8H PRN Nausea and Vomiting Phenobarbital 45 mg 09/14/20 09:00 09/14/20 09:44 Phenobarbital 15 Mg Tablet PO 09/15/20 21:01 Not Given BID [facility] Phenobarbital 15 mg 09/16/20 09:00 Phenobarbital 15 Mg Tablet PO 09/17/20 21:01 BID [facility] Phenobarbital 15 mg 09/18/20 09:00 Phenobarbital 15 Mg Tablet PO 09/19/20 09:01 DAILY [facility] Sodium Chloride 3 ml 09/12/20 16:00 09/14/20 14:44 0.9 % Sodium Chloride Flush 3 Ml Syringe IVFLUSH 3 ml QSHIFT [facility] Administration Labs CBC & Chem 7: 09/14/20 10:12 09/14/20 10:12 Assessment and Plan (1) Atrial flutter: Status: Acute Assessment and Plan: 80 year old man admitted with new atrial flutter with history of atrial fibrillation in the past. Atrial flutter with RVR improving Heart rate improving Metoprolol increased to 50 t.i.d. per Cardiology Taper Cardizem drip. cardiology following continue Eliquis, will treat address risk Alcohol withdrawal patient is less confused today continue phenobarbital and CIWA monitor on telemetry Hypertension. Stable blood pressure. CKD. Seems at baseline. Avoid nephrotoxins. Anemia. Chronic. No signs of bleeding. DVT prophylaxis Eliquis
--- NOTE | 2020-09-14 15:51 | CA_ITS ---
Transthoracic Echocardiogram Patient (Last, First, Middle): Arron Jean Baptiste A Gender: Male Date of : 1940 Age: 80 Procedure Date: 09/14/2020 Procedure Type: Transthoracic Echocardiogram [place] [facility] [place] Height: 167.64 cm Weight: 81.19 kg BSA: 1.91 m2 Heart Rate: bpm BP: 152 / 91 mmHg [employer]: CAMILA Referring MD: Laura South NP Symptoms: NEW ONSET AFLUTTER Study Quality: Fair Conclusions: - Normal left ventricular size, thickness, and systolic function. - Normal right ventricular cavity size and systolic function. - The left atrium is mildly dilated. - There is mild thickening of the aortic valve. There is no aortic valve stenosis. There is no aortic valve regurgitation. - There is mild to moderate mitral valve regurgitation. Findings Left Ventricle Normal left ventricular size, thickness, and systolic function. The visually estimated ejection fraction is between 55-60%. There is no evidence of regional wall motion abnormalities. Diastolic function is indeterminate on the basis of available data. Right Ventricle Normal right ventricular cavity size and systolic function. Atria The left atrium is mildly dilated. The right atrium is normal in size. Aortic Valve There is a normal trileaflet aortic valve. There is mild calcification of the aortic valve. There is mild thickening of the aortic valve. There is no aortic valve stenosis. There is no aortic valve regurgitation. Mitral Valve The mitral valve appears normal. There is moderate mitral annular calcification. There is mild to moderate mitral valve regurgitation. There is no mitral valve stenosis. Pulmonic Valve The pulmonic valve is likely normal. Tricuspid Valve Normal tricuspid valve structure and function. There is mild to moderate tricuspid valve regurgitation. Normal right atrial pressure. There is no evidence of pulmonary hypertension. Great Vessels All visible segments of the aorta are normal in size. The visualized portions of the pulmonary artery and branches are normal. Venous The inferior vena cava is normal in size and collapses greater than 50% with inspiration. Pericardium/Pleural There is no evidence of pericardial effusion. Prior Study Comparison Changes noted compared to prior study dated: 06/15/2019. Mild to moderate MR Measurements 2D Linear Measurements IVSd: 0.93 0.6-0.9/0.6-1.0 cm LVIDd: 3.85 3.9-5.3/4.2-5.9 cm LVIDd Index: 2.02 2.4-3.2/2.2-3.1 cm/m2 LVIDs: 2.87 2.0-3.6 cm LVPWd: 1.18 0.7-1.1 cm Ao Root: 3.20 2.1-3.5 cm LA Diam: 3.40 2.7-3.8/3.0-4.0 cm LAIDs Index: 1.78 1.5-2.3 cm/m2 LV Mass: 160.83 67-162/88-224 g LV Mass Index: 84.20 43-95/49-115 g/m2 LVOT Diam: 2.00 3.0+(-)1.3 cm Aortic Valve AoV Pk Tucker: 1.05 AoV Mn Tucker: 0.75 AoV VTI: 0.17 AoV Pk Grad: 4.00 Aov Mn Grad: 3.00 FOX Cont.VTI: 2.36 LVOT LVOT Pk Tucker: 0.71 LVOT Mn Tucker: 0.48 LVOT VTI: 0.13 LVOT Pk Grad: 2.00 LVOT Mn Grad: 1.00 LVOT Diam: 2.00 LVOT Area: 3.14 Tricuspid Valve TR Pk Tucker: 2.62 TR Pk Grad: 27.00 RA Press: 3.00 RVSP: 30.00 Great Vessels Aorta Ao Root-2D: 3.20 2.0-3.7 cm Ao Asc: 3.10 2.1-3.4 cm Ao Arch: 2.80 Updated in Other Vendor System with Status of Final Onofre Gomez MD electronically signed on 09/14/2020 4:02:38 PM with status of Final
--- NOTE | 2020-09-14 18:38 | PC.NURSE ---
Patient taken off cardizem gtt and increased dose of metoprolol. Rate is better controlled today. Remains confused and requires frequent redirection. Vitals stable. Will conintue to monitor.
[2020-09-14] MEDS: PHENobarbitaL 15 MG TABLET 45 MG PO (22:40)
[2020-09-15] VITALS (8 sets, daily range): BP systolic 104–136; BP diastolic 69–92; PULSE 69–127; RESP 16–20; TEMP 36.1–37.1; O2SAT 96–99
[2020-09-15] MEDS: 0.9 % Sodium Chloride Flush 3 ML SYRINGE IVFLUSH ×4 (00:28→23:55)
[2020-09-15] MEDS: PHENobarbitaL 15 MG TABLET 45 MG PO ×2 (09:38→22:09)
[2020-09-15] MEDS: Thiamine HCL 100 MG TABLET PO (09:39)
[2020-09-15] MEDS: Apixaban 5 MG TABLET PO ×2 (09:39→22:09)
[2020-09-15] MEDS: Folic Acid 1 MG TABLET PO (09:39)
[2020-09-15] MEDS: Metoprolol Tartrate 25 MG TABLET 50 MG PO (09:39)
[2020-09-15 09:50] LABS: Anion Gap 11 (12-20); Blood Urea Nitrogen 24 mg/dL (9-16); Calcium 8.5 mg/dL (8.4-10.2); Carbon Dioxide 23 mmol/L (22-29); Chloride 101 mmol/L (96-108); Creatinine Clr Calc Pharmacy 39.4; Estimated Glomerular Filt Rate 44; Glucose Random 123 mg/dL (60-115); Potassium 4.4 mmol/l (3.3-5.1); Sodium 131 mmol/L (135-145)
--- NOTE | 2020-09-15 11:47 | MHC.CM.PN ---
Cardizem gtt has been d/c'd and echo completed. Discharge plan is home no services. Family will provide transport. CM will continue to follow for discharge needs.
--- NOTE | 2020-09-15 12:32 | PM.PNCARD ---
Subjective Subjective Date of Service: 09/15/20 Principal diagnosis: Atrial flutter Interval history: Cardiology follow up of aflutter. Seen at 0930. Today he reports feeling well. No concerning symptoms. Has walked to the bathroom and tolerates. No CP, sob, palpitations reported. No PND, orthopnea or edema. No signs of bleeding. Slept well. Review of Systems Review of Systems as above Yes all other systems are reviewed and are negative Denies dizziness Reports system reviewed and no additional complaints, except as documented, Denies dizziness and Denies Sensory deficit (Neuro) Physical Exam Vital Signs: Last Vital Signs Temp 97.2 F 09/15/20 12:00 Pulse 75 09/15/20 12:00 Resp 18 09/15/20 12:00 BP 104/69 09/15/20 12:00 Pulse Ox 97 09/15/20 12:00 Body Mass Index 28.8 Const General: cooperative, healthy appearing, no acute distress, alert and awake Orientation/consciousness: patient oriented x3 Neck Neck: Yes normal visual inspection and Yes no JVD Resp Effort & Inspection: normal respiratory effort, able to speak in complete sentences and not labored Auscultation: clear to auscultation bilaterally, no crackles, no rales, no rhonchi and no wheezes Cardio Palpation: normal PMI Heart sounds: S1 normal heart sound present, S2 normal heart sound present and Abnormal heart opening sounds (irregular rhythm) Peripheral pulses: Peripheral pulses 2+ throughout GI Inspection: Yes normal to inspection Neuro General: patient oriented x3 Sensory Exam: No Sensory deficit (Neuro) Extrem General: Yes normal to inspection and No edema Results Labs and Meds Result diagrams: 09/14/20 10:12 09/15/20 08:55 Lab results: Laboratory Results - last 24 hr 09/15/20 08:55 Sodium 131 L Potassium 4.4 Chloride 101 Carbon Dioxide 23 Anion Gap 11 L BUN 24 H Creatinine 1.52 H Estim Creat Clear Calc 39.4 Estimated GFR 44 Random Glucose 123 H Calcium 8.5 Progress Note: A&P Assessment and plan (1) Atrial flutter: Status: Acute Assessment and Plan: Admit with atrial flutter. Metoprolol increased yesterday. Tele now shows Aflutter rates 70-90s during the night and 90-118 this am. Echo shows normal LV and RV, LA mildly dilated, mild to mod MR. No reports of palpitations or sob. Will increase Metoprolol tartrate to 100mg bid, from 50mg TID. Ambulate in mix to assess heart rate with activity. If he feels well and rates reasonably controlled, he may be discharged later today. We will plan for outpt Holter and cardiology follow up. Continue on Eliquis for anticoagulation. Fall Risk Details Current Medications: Current Medications Generic Name Dose Route Start Last Admin Trade Name Freq PRN Reason Stop Dose Admin Acetaminophen 650 mg 09/12/20 15:51 Acetaminophen 325 Mg Tablet PO Q6H PRN Pain, Mild (Pain Scale 1-3) Apixaban 5 mg 09/13/20 10:30 09/15/20 09:39 Apixaban 5 Mg Tablet PO 5 mg BID LEONEL Administration Folic Acid 1 mg 09/15/20 09:00 09/15/20 09:39 Folic Acid 1 Mg Tablet PO 1 mg DAILY LEONEL Administration Medication 1 each 09/14/20 09:00 No Benzodiazepines MISCELLANE DAILY LEONEL Metoprolol Tartrate 100 mg 09/15/20 21:00 Metoprolol Tartrate 25 Mg Tablet PO BID [facility] Protocol Ondansetron HCl 4 mg 09/12/20 15:51 Ondansetron Hcl 4 Mg/2 Ml Vial IVPUSH Q8H PRN Nausea and Vomiting Phenobarbital 45 mg 09/14/20 09:00 09/15/20 09:38 Phenobarbital 15 Mg Tablet PO 09/15/20 21:01 45 mg BID LEONEL Administration Phenobarbital 15 mg 09/16/20 09:00 Phenobarbital 15 Mg Tablet PO 09/17/20 21:01 BID LEONEL Phenobarbital 15 mg 09/18/20 09:00 Phenobarbital 15 Mg Tablet PO 09/19/20 09:01 DAILY LEONEL Sodium Chloride 3 ml 09/12/20 16:00 09/15/20 09:39 0.9 % Sodium Chloride Flush 3 Ml Syringe IVFLUSH 3 ml QSHIFT LEONEL Administration Thiamine HCl 100 mg 09/15/20 09:00 09/15/20 09:39 Thiamine Hcl 100 Mg Tablet PO 100 mg DAILY LEONEL Administration Time Spent With Patient Time: Total time spent is greater than 50% in coordination of care (as documented) at patient's floor/unit and/or counseling patient: Time with patient: 15 - 24 minutes
--- NOTE | 2020-09-15 17:04 | HO.PM.IMPN ---
Subjective Subjective Date of Service: 09/15/20 Interval History: Patient seen and examined at bedside, Patient is less confused Review of Systems Constitutional Constitutional: Reports no additional constitutional complaints Eyes Eyes: Reports no additional eye complaints ENT Ears, Nose, Mouth, and Throat: Denies dizziness Cardiovascular Cardiovascular: Reports no additional cardiovascular complaints Respiratory Respiratory: Reports as per HPI Gastrointestinal Gastrointestinal: Reports no additional gastrointestinal complaints Musculoskeletal Musculoskeletal: Reports no additional musculoskeletal complaints Integumentary/Breasts Skin/Breast: Denies rash Neurologic Neurologic: Reports system reviewed and no additional complaints, except as documented, Denies dizziness and Denies Sensory deficit (Neuro) Psychiatric Psychiatric: Denies anxiety Physical Exam Vital Signs: Vital Signs: Last Vital Signs Temp 97 F 09/15/20 16:00 Pulse 69 09/15/20 16:00 Resp 17 09/15/20 16:00 BP 117/91 H 09/15/20 16:00 Pulse Ox 98 09/15/20 16:00 Body Mass Index 28.8 Const: General: healthy appearing Nutritional Appearance: average body habitus Orientation/consciousness: oriented to person, oriented to time and patient oriented x3 Limitations: no limitations HENMT: Head: Yes normal to inspection Ears: external ears normal General nose exam: Normal external nose present Mouth: Normal oral and palatal mucosa present and oropharynx normal Throat: Yes posterior oropharynx normal Eyes: General: appearance normal, both eyes and all related structures Neck: Other: supple Neck: Yes normal visual inspection Chest: Chest palpation & inspection: normal inspection of the chest Resp: Auscultation: clear to auscultation bilaterally Cardio: Jugular venous distension: no JVD Rate: tachycardic Rhythm: regular rhythm GI: Inspection: Yes normal to inspection Palpation (GI): Soft to palpation, nontender and No hepatosplenomegaly present Auscultation: normal bowel sounds : General: Yes no CVA tenderness Back/Spine/Pelvis: Back: no CVA tenderness Skin: General skin exam: no rashes or lesions noted Neuro: General: oriented to person, oriented to time and patient oriented x3 Cranial nerves: Yes CN's II-XII intact bilaterally Motor exam (neuro): 5/5 motor strength present throughout Sensory Exam: No Sensory deficit (Neuro) Extrem: General: Yes normal to inspection Psych: Appearance: grossly normal Objective Data Current Medications Generic Name Dose Route Start Last Admin Trade Name Freq PRN Reason Stop Dose Admin Acetaminophen 650 mg 12/15/20 15:51 Acetaminophen 325 Mg Tablet PO Q6H PRN Pain, Mild (Pain Scale 1-3) Apixaban 5 mg 09/13/20 10:30 09/15/20 09:39 Apixaban 5 Mg Tablet PO 5 mg BID LEONEL Administration Folic Acid 1 mg 09/15/20 09:00 09/15/20 09:39 Folic Acid 1 Mg Tablet PO 1 mg DAILY LEONEL Administration Medication 1 each 09/14/20 09:00 No Benzodiazepines MISCELLANE DAILY [facility] Metoprolol Tartrate 100 mg 09/15/20 21:00 Metoprolol Tartrate 25 Mg Tablet PO BID [facility] Protocol Ondansetron HCl 4 mg 09/12/20 15:51 Ondansetron Hcl 4 Mg/2 Ml Vial IVPUSH Q8H PRN Nausea and Vomiting Phenobarbital 45 mg 09/14/20 09:00 09/15/20 09:38 Phenobarbital 15 Mg Tablet PO 09/15/20 21:01 45 mg BID LEONEL Administration Phenobarbital 15 mg 09/16/20 09:00 Phenobarbital 15 Mg Tablet PO 09/17/20 21:01 BID LEONEL Phenobarbital 15 mg 09/18/20 09:00 Phenobarbital 15 Mg Tablet PO 09/19/20 09:01 DAILY [facility] Sodium Chloride 3 ml 09/12/20 16:00 09/15/20 16:54 0.9 % Sodium Chloride Flush 3 Ml Syringe IVFLUSH 3 ml QSHIFT [facility] Administration Thiamine HCl 100 mg 09/15/20 09:00 09/15/20 09:39 Thiamine Hcl 100 Mg Tablet PO 100 mg DAILY [facility] Administration Labs CBC & Chem 7: 09/14/20 10:12 09/15/20 08:55 Assessment and Plan (1) Atrial flutter: Status: Acute Assessment and Plan: 80 year old man admitted with new atrial flutter with history of atrial fibrillation in the past. Atrial flutter with RVR improving Heart rate improving Metoprolol increased 100 mg b.i.d. Cardizem drip stopped cardiology following Continue Eliquis, confusion likely multifactorial from Alcohol withdrawal in possible underlying dementia patient is less confused today continue phenobarbital and CIWA monitor on telemetry Hypertension. Stable blood pressure. CKD. Seems at baseline. Avoid nephrotoxins. Anemia. Chronic. No signs of bleeding. DVT prophylaxis Eliquis
[2020-09-15] MEDS: Metoprolol Tartrate 25 MG TABLET 100 MG PO (22:08)
--- NOTE | 2020-09-15 22:58 | ECG_ITS ---
Test Reason : EKG Blood Pressure : / mmHG Vent. Rate : 128 BPM Atrial Rate : 256 BPM P-R Int : 000 ms QRS Dur : 074 ms QT Int : 344 ms P-R-T Axes : -84 001 -21 degrees QTc Int : 502 ms Atrial flutter with 2:1 A-V conduction Nonspecific ST abnormality Abnormal ECG When compared to the previous EKG of No significant changes seen Referred By: Ata Ortega Electronically Signed By:Onofre Gomez
[2020-09-15] MEDS: Metoprolol Tartrate 5 MG/5 ML VIAL IVPUSH (23:55)
[2020-09-16] VITALS (9 sets, daily range): BP systolic 87–125; BP diastolic 70–87; PULSE 64–128; RESP 18–20; TEMP 36.7–37.1; O2SAT 97–98
[2020-09-16] MEDS: Metoprolol Tartrate 5 MG/5 ML VIAL IVPUSH (05:49)
--- NOTE | 2020-09-16 06:07 | PC.NURSE ---
Addendum entered by Phyllis Funes RN 09/16/20 06:39: HR remained at 126-129 close to an hour after giving Lopressor, patient remained asymptomatic. Remained on ST the whole time ever since it was converted. Informed Dr. Villanueva. Original Note: Alert and confused during change of shift at 2300, CIWA score was 1 all night. Denied chest pain or shortness of breath. Heart rate was in the 120s-130s at change of shift too and he was on A-flutter, Metoprolol 5 mg IV given and since then HR was sustaining at 90s-110s. Around 0500 this AM, HR was up again at 120s and noted that it was converted to Sinus Tachycardia, paged Dr. Villanueva, ordered Metoprolol 5 mg IV, HR still in the 120s up to this time. Patient was more alert and oriented x 3 and not exhibiting bizarre behavior. He is calmer this time. Needs were attended. Will continue care plan.
[2020-09-16] MEDS: Metoprolol Tartrate 25 MG TABLET 100 MG PO ×2 (07:31→21:12)
[2020-09-16] MEDS: Folic Acid 1 MG TABLET PO (07:31)
[2020-09-16] MEDS: PHENobarbitaL 15 MG TABLET PO ×2 (07:31→21:12)
[2020-09-16] MEDS: Apixaban 5 MG TABLET PO ×2 (07:31→21:12)
[2020-09-16] MEDS: Thiamine HCL 100 MG TABLET PO (07:32)
[2020-09-16] MEDS: 0.9 % Sodium Chloride Flush 3 ML SYRINGE IVFLUSH ×2 (07:32→16:15)
[2020-09-16 09:31] LABS: Anion Gap 13 (12-20); Blood Urea Nitrogen 22 mg/dL (9-16); Calcium 8.9 mg/dL (8.4-10.2); Carbon Dioxide 21 mmol/L (22-29); Chloride 101 mmol/L (96-108); Creatinine Clr Calc Pharmacy 43.1; Estimated Glomerular Filt Rate 49; Glucose Random 126 mg/dL (60-115); Potassium 4.7 mmol/l (3.3-5.1); Sodium 130 mmol/L (135-145)
--- NOTE | 2020-09-16 11:36 | PM.PNCARD ---
Subjective Subjective Date of Service: 09/16/20 Principal diagnosis: Atrial flutter Interval history: No symptoms Was in HR 120s from 5-8 AM. Review of Systems Review of Systems No complaints Yes all other systems are reviewed and are negative Denies dizziness Reports system reviewed and no additional complaints, except as documented, Denies dizziness and Denies Sensory deficit (Neuro) Physical Exam Vital Signs: Last Vital Signs Temp 98.2 F 09/16/20 07:53 Pulse 126 H 09/16/20 07:53 Resp 18 09/16/20 07:53 BP 113/84 09/16/20 07:53 Pulse Ox 98 09/16/20 03:15 Body Mass Index 28.8 GENERAL APPEARANCE: in no acute distress, well developed, well nourished. HEENT: unremarkable. HEAD: normocephalic, atraumatic. NECK/THYROID: no carotid bruit, no jugular venous distention. SKIN: no suspicious lesions, warm and dry. HEART: no murmurs, irregular rhythm, S1, S2 normal. LUNGS: clear to auscultation bilaterally. ABDOMEN: normal, bowel sounds present, soft, nontender, nondistended. EXTREMITIES: no clubbing, cyanosis, or edema. 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 PERIPHERAL PULSES: equal. NEUROLOGIC: nonfocal, alert and oriented. PSYCH: mood/affect full range. Neuro Sensory Exam: No Sensory deficit (Neuro) Results Labs and Meds Result diagrams: 09/14/20 10:12 09/16/20 08:50 Lab results: Laboratory Results - last 24 hr 09/16/20 08:50 Sodium 130 L Potassium 4.7 Chloride 101 Carbon Dioxide 21 L Anion Gap 13 BUN 22 H Creatinine 1.39 Estim Creat Clear Calc 43.1 Estimated GFR 49 Random Glucose 126 H Calcium 8.9 Progress Note: A&P Assessment and plan (1) Atrial flutter: Status: Acute (2) Chest pain: Status: Acute Assessment and Plan: 80-year-old gentleman with atrial flutter. No symptoms. No CHF. Normal EF. On Metoprolol 100 mg BID. On Eliquis. HR was fast from 5 to 8 AM today. Add Digoxin 125 mcg every other day. Can DC home. We will arrange a Holter monitor. Fall Risk Details Current Medications: Current Medications Generic Name Dose Route Start Last Admin Trade Name Freq PRN Reason Stop Dose Admin Acetaminophen 650 mg 09/12/20 15:51 Acetaminophen 325 Mg Tablet PO Q6H PRN Pain, Mild (Pain Scale 1-3) Apixaban 5 mg 09/13/20 10:30 09/16/20 07:31 Apixaban 5 Mg Tablet PO 5 mg BID LEONEL Administration Folic Acid 1 mg 09/15/20 09:00 09/16/20 07:31 Folic Acid 1 Mg Tablet PO 1 mg DAILY LEONEL Administration Medication 1 each 09/14/20 09:00 No Benzodiazepines MISCELLANE DAILY LEONEL Metoprolol Tartrate 100 mg 09/15/20 21:00 09/16/20 07:31 Metoprolol Tartrate 25 Mg Tablet PO 100 mg BID LEONEL Administration Protocol Ondansetron HCl 4 mg 09/12/20 15:51 Ondansetron Hcl 4 Mg/2 Ml Vial IVPUSH Q8H PRN Nausea and Vomiting Phenobarbital 15 mg 09/16/20 09:00 09/16/20 07:31 Phenobarbital 15 Mg Tablet PO 09/17/20 21:01 15 mg BID LEONEL Administration Phenobarbital 15 mg 09/18/20 09:00 Phenobarbital 15 Mg Tablet PO 09/19/20 09:01 DAILY LEONEL Sodium Chloride 3 ml 09/12/20 16:00 09/16/20 07:32 0.9 % Sodium Chloride Flush 3 Ml Syringe IVFLUSH 3 ml QSHIFT LEONEL Administration Thiamine HCl 100 mg 09/15/20 09:00 09/16/20 07:32 Thiamine Hcl 100 Mg Tablet PO 100 mg DAILY LEONEL Administration Time Spent With Patient Time: Total time spent is greater than 50% in coordination of care (as documented) at patient's floor/unit and/or counseling patient: Time with patient: less than 15 minutes
[2020-09-16] MEDS: Digoxin 0.125 MG TABLET PO (13:07)
--- NOTE | 2020-09-16 14:45 | HO.PM.IMPN ---
Subjective Subjective Date of Service: 09/16/20 Interval History: Patient seen and examined at bedside, Patient is less confused Review of Systems Constitutional Constitutional: Reports no additional constitutional complaints Eyes Eyes: Reports no additional eye complaints ENT Ears, Nose, Mouth, and Throat: Denies dizziness Cardiovascular Cardiovascular: Reports no additional cardiovascular complaints Respiratory Respiratory: Reports as per HPI Gastrointestinal Gastrointestinal: Reports no additional gastrointestinal complaints Musculoskeletal Musculoskeletal: Reports no additional musculoskeletal complaints Integumentary/Breasts Skin/Breast: Denies rash Neurologic Neurologic: Reports system reviewed and no additional complaints, except as documented, Denies dizziness and Denies Sensory deficit (Neuro) Psychiatric Psychiatric: Denies anxiety Physical Exam Vital Signs: Vital Signs: Last Vital Signs Temp 98.0 F 09/16/20 13:28 Pulse 64 09/16/20 13:28 Resp 20 09/16/20 13:28 BP 87/70 L 09/16/20 13:28 Pulse Ox 97 09/16/20 13:28 Body Mass Index 28.8 Const: General: healthy appearing Nutritional Appearance: average body habitus Orientation/consciousness: oriented to person, oriented to time and patient oriented x3 Limitations: no limitations HENMT: Head: Yes normal to inspection Ears: external ears normal General nose exam: Normal external nose present Mouth: Normal oral and palatal mucosa present and oropharynx normal Throat: Yes posterior oropharynx normal Eyes: General: appearance normal, both eyes and all related structures Neck: Other: supple Neck: Yes normal visual inspection Chest: Chest palpation & inspection: normal inspection of the chest Resp: Auscultation: clear to auscultation bilaterally Cardio: Jugular venous distension: no JVD Rate: tachycardic Rhythm: regular rhythm GI: Inspection: Yes normal to inspection Palpation (GI): Soft to palpation, nontender and No hepatosplenomegaly present Auscultation: normal bowel sounds : General: Yes no CVA tenderness Back/Spine/Pelvis: Back: no CVA tenderness Skin: General skin exam: no rashes or lesions noted Neuro: General: oriented to person, oriented to time and patient oriented x3 Cranial nerves: Yes CN's II-XII intact bilaterally Motor exam (neuro): 5/5 motor strength present throughout Sensory Exam: No Sensory deficit (Neuro) Extrem: General: Yes normal to inspection Psych: Appearance: grossly normal Objective Data Current Medications Generic Name Dose Route Start Last Admin Trade Name Freq PRN Reason Stop Dose Admin Acetaminophen 650 mg 09/12/20 15:51 Acetaminophen 325 Mg Tablet PO Q6H PRN Pain, Mild (Pain Scale 1-3) Apixaban 5 mg 09/13/20 10:30 09/16/20 07:31 Apixaban 5 Mg Tablet PO 5 mg BID LEONEL Administration Digoxin 0.125 mg 09/16/20 12:00 09/16/20 13:07 Digoxin 0.125 Mg Tablet PO 0.125 mg Q2D LEONEL Administration Folic Acid 1 mg 09/15/20 09:00 09/16/20 07:31 Folic Acid 1 Mg Tablet PO 1 mg DAILY LEONEL Administration Medication 1 each 09/14/20 09:00 No Benzodiazepines MISCELLANE DAILY [facility] Metoprolol Tartrate 100 mg 09/15/20 21:00 09/16/20 07:31 Metoprolol Tartrate 25 Mg Tablet PO 100 mg BID LEONEL Administration Protocol Ondansetron HCl 4 mg 09/12/20 15:51 Ondansetron Hcl 4 Mg/2 Ml Vial IVPUSH Q8H PRN Nausea and Vomiting Phenobarbital 15 mg 09/16/20 09:00 09/16/20 07:31 Phenobarbital 15 Mg Tablet PO 09/17/20 21:01 15 mg BID LEONEL Administration Phenobarbital 15 mg 09/18/20 09:00 Phenobarbital 15 Mg Tablet PO 09/19/20 09:01 DAILY [facility] Sodium Chloride 3 ml 09/12/20 16:00 09/16/20 07:32 0.9 % Sodium Chloride Flush 3 Ml Syringe IVFLUSH 3 ml QSHIFT LEONEL Administration Thiamine HCl 100 mg 09/15/20 09:00 09/16/20 07:32 Thiamine Hcl 100 Mg Tablet PO 100 mg DAILY LEONEL Administration Labs CBC & Chem 7: 09/14/20 10:12 09/16/20 08:50 Assessment and Plan (1) Atrial flutter: Status: Acute Assessment and Plan: 80 year old man admitted with new atrial flutter with history of atrial fibrillation in the past. Atrial flutter with RVR Heart rate still on higher side Metoprolol increased 100 mg b.i.d. seen by Cardiology added digoxin Cardizem drip stopped cardiology following Continue Eliquis monitor heart rate Confusion likely multifactorial from Alcohol withdrawal in possible underlying dementia patient is less confused today continue phenobarbital and CIWA monitor on telemetry Hypertension. Stable blood pressure. CKD. Seems at baseline. Avoid nephrotoxins. Anemia. Chronic. No signs of bleeding. DVT prophylaxis Eliquis
[2020-09-17] VITALS (10 sets, daily range): BP systolic 102–144; BP diastolic 68–85; PULSE 59–127; RESP 17–20; TEMP 36.1–37.2; O2SAT 95–100
[2020-09-17] MEDS: 0.9 % Sodium Chloride Flush 3 ML SYRINGE IVFLUSH ×3 (00:18→15:22)
[2020-09-17 07:13] LABS: Hematocrit 42.8 % (42-52); Hemoglobin 14.7 g/dl (14.0-18.0); Mean Corpuscular HGB Conc 34.3 g/dl (31.0-36.0); Mean Corpuscular Hemoglobin 35.3 pg (27.0-33.0); Mean Corpuscular Volume 102.6 fL (80-98); Mean Platelet Volume 9.8 fL (9.4-12.4); Platelet Count 218 X10*3/uL (160-400); Red Blood Count 4.17 X10*6/uL (4.60-5.80); Red Cell Distribution Width 11.7 % (11.0-16.0); White Blood Count 6.3 X10*3/uL (4.8-10.8)
[2020-09-17] MEDS: Metoprolol Tartrate 25 MG TABLET 100 MG PO ×2 (08:03→20:17)
[2020-09-17] MEDS: PHENobarbitaL 15 MG TABLET PO ×2 (08:04→20:17)
[2020-09-17] MEDS: Apixaban 5 MG TABLET PO ×2 (08:04→20:17)
[2020-09-17] MEDS: Thiamine HCL 100 MG TABLET PO (08:04)
[2020-09-17] MEDS: Folic Acid 1 MG TABLET PO (08:04)
--- NOTE | 2020-09-17 11:43 | PM.PNCARD ---
Subjective Subjective Date of Service: 09/17/20 Principal diagnosis: Atrial flutter Interval history: No symptoms. Rate control is not great as he has been in HR 120s in atrial flutter. Review of Systems Review of Systems asymptomatic Yes all other systems are reviewed and are negative Denies dizziness Reports system reviewed and no additional complaints, except as documented and Denies dizziness Physical Exam Vital Signs: Last Vital Signs Temp 97.0 F 09/17/20 11:07 Pulse 59 09/17/20 11:07 Resp 17 09/17/20 11:07 BP 102/69 09/17/20 11:07 Pulse Ox 96 09/17/20 11:07 Body Mass Index 28.8 GENERAL APPEARANCE: in no acute distress, well developed, well nourished. HEENT: unremarkable. HEAD: normocephalic, atraumatic. NECK/THYROID: no carotid bruit, no jugular venous distention. SKIN: no suspicious lesions, warm and dry. HEART: no murmurs, irregular rhythm, S1, S2 normal. LUNGS: clear to auscultation bilaterally. ABDOMEN: normal, bowel sounds present, soft, nontender, nondistended. EXTREMITIES: no clubbing, cyanosis, or edema. 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 PERIPHERAL PULSES: equal. NEUROLOGIC: nonfocal, alert and oriented. PSYCH: mood/affect full range. Results Labs and Meds Result diagrams: 09/17/20 05:59 09/16/20 08:50 Lab results: Laboratory Results - last 24 hr 09/17/20 05:59 WBC 6.3 RBC 4.17 L Hgb 14.7 Hct 42.8 MCV 102.6 H MCH 35.3 H MCHC 34.3 RDW 11.7 Plt Count 218 D MPV 9.8 Absolute Nucleated RBC 0.000 Nucleated RBC % (auto) 0.0 Progress Note: A&P Assessment and plan (1) Atrial flutter: Status: Acute Assessment and Plan: [age] gentleman with atrial flutter. Rate control is not great right now. He is on Toprol XL. We started him on digoxin without load yesterday. I think we should give him 1 loading dose and continue digoxin every other day. I think if his rate control improved then he can be discharged home with a plan to do Holter monitoring as outpatient. On the other hand if his rate control continues to be poor then he may require a DOROTHY cardioversion. Continue anticoagulation. Thank you for allowing me to participate in the care of your patient. Please feel free to contact me if you have any questions. Fall Risk Details Current Medications: Current Medications Generic Name Dose Route Start Last Admin Trade Name Freq PRN Reason Stop Dose Admin Acetaminophen 650 mg 09/12/20 15:51 Acetaminophen 325 Mg Tablet PO Q6H PRN Pain, Mild (Pain Scale 1-3) Apixaban 5 mg 09/13/20 10:30 09/17/20 08:04 Apixaban 5 Mg Tablet PO 5 mg BID LEONEL Administration Digoxin 0.125 mg 09/16/20 12:00 09/16/20 13:07 Digoxin 0.125 Mg Tablet PO 0.125 mg Q2D LEONEL Administration Folic Acid 1 mg 09/15/20 09:00 09/17/20 08:04 Folic Acid 1 Mg Tablet PO 1 mg DAILY LEONEL Administration Medication 1 each 09/14/20 09:00 No Benzodiazepines MISCELLANE DAILY LEONEL Metoprolol Tartrate 100 mg 09/15/20 21:00 09/17/20 08:03 Metoprolol Tartrate 25 Mg Tablet PO 100 mg BID LEONEL Administration Protocol Ondansetron HCl 4 mg 09/12/20 15:51 Ondansetron Hcl 4 Mg/2 Ml Vial IVPUSH Q8H PRN Nausea and Vomiting Phenobarbital 15 mg 09/16/20 09:00 09/17/20 08:04 Phenobarbital 15 Mg Tablet PO 09/17/20 21:01 15 mg BID LEONEL Administration Phenobarbital 15 mg 09/18/20 09:00 Phenobarbital 15 Mg Tablet PO 09/19/20 09:01 DAILY LEONEL Sodium Chloride 3 ml 09/12/20 16:00 09/17/20 08:05 0.9 % Sodium Chloride Flush 3 Ml Syringe IVFLUSH 3 ml QSHIFT LEONEL Administration Thiamine HCl 100 mg 09/15/20 09:00 09/17/20 08:04 Thiamine Hcl 100 Mg Tablet PO 100 mg DAILY LEONEL Administration Time Spent With Patient Time: Total time spent is greater than 50% in coordination of care (as documented) at patient's floor/unit and/or counseling patient: Time with patient: less than 15 minutes
--- NOTE | 2020-09-17 14:31 | P.PNIM_ITS ---
Subjective Subjective Date of Service: 09/17/20 Interval History: Patient seen and examined at bedside, Patient is less confused denies any chest pain Review of Systems Constitutional Constitutional: Reports no additional constitutional complaints Eyes Eyes: Reports no additional eye complaints ENT Ears, Nose, Mouth, and Throat: Denies dizziness Cardiovascular Cardiovascular: Reports no additional cardiovascular complaints Respiratory Respiratory: Reports as per HPI Gastrointestinal Gastrointestinal: Reports no additional gastrointestinal complaints Musculoskeletal Musculoskeletal: Reports no additional musculoskeletal complaints Integumentary/Breasts Skin/Breast: Denies rash Neurologic Neurologic: Reports system reviewed and no additional complaints, except as documented, Denies dizziness and Denies Sensory deficit (Neuro) Psychiatric Psychiatric: Denies anxiety Physical Exam Vital Signs: Vital Signs: Last Vital Signs Temp 97.0 F 09/17/20 11:07 Pulse 59 09/17/20 11:07 Resp 17 09/17/20 11:07 BP 102/69 09/17/20 11:07 Pulse Ox 96 09/17/20 11:07 Body Mass Index 28.8 Const: General: healthy appearing Nutritional Appearance: average body habitus Orientation/consciousness: oriented to person, oriented to time and patient oriented x3 Limitations: no limitations HENMT: Head: Yes normal to inspection Ears: external ears normal General nose exam: Normal external nose present Mouth: Normal oral and palatal mucosa present and oropharynx normal Throat: Yes posterior oropharynx normal Eyes: General: appearance normal, both eyes and all related structures Neck: Other: supple Neck: Yes normal visual inspection Chest: Chest palpation & inspection: normal inspection of the chest Resp: Auscultation: clear to auscultation bilaterally Cardio: Jugular venous distension: no JVD Rate: tachycardic Rhythm: regular rhythm GI: Inspection: Yes normal to inspection Palpation (GI): Soft to palpation, nontender and No hepatosplenomegaly present Auscultation: normal bowel sounds : General: Yes no CVA tenderness Back/Spine/Pelvis: Back: no CVA tenderness Skin: General skin exam: no rashes or lesions noted Neuro: General: oriented to person, oriented to time and patient oriented x3 Cranial nerves: Yes CN's II-XII intact bilaterally Motor exam (neuro): 5/5 motor strength present throughout Sensory Exam: No Sensory deficit (Neuro) Extrem: General: Yes normal to inspection Psych: Appearance: grossly normal Objective Data Current Medications Generic Name Dose Route Start Last Admin Trade Name Freq PRN Reason Stop Dose Admin Acetaminophen 650 mg 09/12/20 15:51 Acetaminophen 325 Mg Tablet PO Q6H PRN Pain, Mild (Pain Scale 1-3) Apixaban 5 mg 09/13/20 10:30 09/17/20 08:04 Apixaban 5 Mg Tablet PO 5 mg BID LEONEL Administration Digoxin 0.125 mg 09/16/20 12:00 09/16/20 13:07 Digoxin 0.125 Mg Tablet PO 0.125 mg Q2D LEONEL Administration Folic Acid 1 mg 09/15/20 09:00 09/17/20 08:04 Folic Acid 1 Mg Tablet PO 1 mg DAILY LEONEL Administration Medication 1 each 09/14/20 09:00 No Benzodiazepines MISCELLANE DAILY COUNT INCLUDES THE [facility] Metoprolol Tartrate 100 mg 09/15/20 21:00 09/17/20 08:03 Metoprolol Tartrate 25 Mg Tablet PO 100 mg BID LEONEL Administration Protocol Ondansetron HCl 4 mg 09/12/20 15:51 Ondansetron Hcl 4 Mg/2 Ml Vial IVPUSH Q8H PRN Nausea and Vomiting Phenobarbital 15 mg 09/16/20 09:00 09/17/20 08:04 Phenobarbital 15 Mg Tablet PO 09/17/20 21:01 15 mg BID LEONEL Administration Phenobarbital 15 mg 09/18/20 09:00 Phenobarbital 15 Mg Tablet PO 09/19/20 09:01 DAILY COUNT INCLUDES THE [facility] Sodium Chloride 3 ml 09/12/20 16:00 09/17/20 08:05 0.9 % Sodium Chloride Flush 3 Ml Syringe IVFLUSH 3 ml QSHIFT LEONEL Administration Thiamine HCl 100 mg 09/15/20 09:00 09/17/20 08:04 Thiamine Hcl 100 Mg Tablet PO 100 mg DAILY COUNT INCLUDES THE [facility] Administration Labs CBC & Chem 7: 09/17/20 05:59 09/16/20 08:50 Assessment and Plan (1) Atrial flutter: Status: Acute Assessment and Plan: 80 year old man admitted with new atrial flutter with history of atrial fibrillation in the past. Atrial flutter with RVR Heart rate still on higher side fluctating b/w 80s to 130s Metoprolol increased 100 mg b.i.d. seen by Cardiology added digoxin continue digoxin 0.25 Cardizem drip stopped cardiology following Continue Eliquis monitor heart rate Confusion likely multifactorial from Alcohol withdrawal in possible underlying dementia impriving continue phenobarbital and CIWA monitor on telemetry Hypertension. Stable blood pressure. CKD. Seems at baseline. Avoid nephrotoxins. Anemia. Chronic. No signs of bleeding. DVT prophylaxis Eliquis will monitor can be discharged home if heart rate improved
[2020-09-18] MEDS: 0.9 % Sodium Chloride Flush 3 ML SYRINGE IVFLUSH ×2 (00:04→07:40)
[2020-09-18] MEDS: PHENobarbitaL 15 MG TABLET PO (07:39)
[2020-09-18] MEDS: Thiamine HCL 100 MG TABLET PO (07:39)
[2020-09-18] MEDS: Apixaban 5 MG TABLET PO (07:39)
[2020-09-18] MEDS: Folic Acid 1 MG TABLET PO (07:39)
[2020-09-18 07:40] VITALS: BP 116/60; PULSE 96
[2020-09-18] MEDS: Metoprolol Tartrate 25 MG TABLET 100 MG PO (07:40)
[2020-09-18 08:00] VITALS: BP 118/76; PULSE 66; RESP 20; TEMP 36.2; O2SAT 96
[2020-09-18 10:43] VITALS: BP 108/72; PULSE 67; RESP 18; TEMP 36.2; O2SAT 97
[2020-09-18 11:39] VITALS: PULSE 72
[2020-09-18] MEDS: Digoxin 0.125 MG TABLET PO (11:39)
--- NOTE | 2020-09-18 12:45 | PM.PNCARD ---
Subjective Subjective Date of Service: 09/18/20 <NATHALIA Guevara - Last Filed: 09/18/20 12:52> 09/18/20 <Delon Stevenson MD - Last Filed: 09/18/20 18:05> Principal diagnosis: Atrial flutter <NATHALIA Guevara - Last Filed: 09/18/20 12:52> Interval history: Cardiology follow up for Aflutter rate control. Seen at 1030. Today he states he is feeling good. He denies any CP, palpitation, sob. Ambulates to bathroom without symptoms. No bleeding issues. Slept well. <NATHALIA Guevara - Last Filed: 09/18/20 12:52> Review of Systems Review of Systems as above <NATHALIA Guevara - Last Filed: 09/18/20 12:52> Yes all other systems are reviewed and are negative <NATHALIA Guevara - Last Filed: 09/18/20 12:52> Physical Exam Vital Signs: Last Vital Signs Temp 97.1 F 09/18/20 10:43 Pulse 72 09/18/20 11:39 Resp 18 09/18/20 10:43 BP 108/72 09/18/20 10:43 Pulse Ox 97 09/18/20 10:43 Body Mass Index 28.8 <NATHALIA Guevara - Last Filed: 09/18/20 12:52> Const General: cooperative, healthy appearing, no acute distress, alert and awake <NATHALIA Guevara - Last Filed: 09/18/20 12:52> Orientation/consciousness: patient oriented x3 <NATHALIA Guevara - Last Filed: 09/18/20 12:52> Neck Neck: Yes normal visual inspection and Yes no JVD <NATHALIA Guevara - Last Filed: 09/18/20 12:52> Resp Effort & Inspection: normal respiratory effort, able to speak in complete sentences and not labored <NATHALIA Guevara - Last Filed: 09/18/20 12:52> Auscultation: clear to auscultation bilaterally, no crackles, no rales, no rhonchi and no wheezes <NATHALIA Guevara - Last Filed: 09/18/20 12:52> Cardio Palpation: normal PMI <NATHALIA Guevara - Last Filed: 09/18/20 12:52> Rhythm: abnormal rhythm (Irregular) <NATHALIA Guevara - Last Filed: 09/18/20 12:52> Heart sounds: S1 normal heart sound present and S2 normal heart sound present <NATHALIA Guevara - Last Filed: 09/18/20 12:52> Peripheral pulses: Peripheral pulses 2+ throughout <LINDA Guevara - Last Filed: 09/18/20 12:52> GI Inspection: Yes normal to inspection <NATHALIA Guevara - Last Filed: 09/18/20 12:52> Skin General skin exam: no rashes or lesions noted <LINDA Guevara - Last Filed: 09/18/20 12:52> Neuro General: patient oriented x3 <NATHALIA Guevara - Last Filed: 09/18/20 12:52> Extrem General: Yes normal to inspection and No edema <NATHALIA Guevara - Last Filed: 09/18/20 12:52> Results Labs and Meds Result diagrams: : 09/17/20 05:59 09/16/20 08:50 <NATHALIA Guevara - Last Filed: 09/18/20 12:52> Progress Note: A&P Assessment and plan (1) Atrial flutter: Status: Acute <NATHALIA Guevara - Last Filed: 09/18/20 12:52> Assessment and Plan: New atrial flutter. Echo shows normal LV, normal RV, mild to mod MR. This admit treated for rate control. Now on Metoprolol xl 100mg bid and Digoxin 0.125mg EOD. Tele showing atrial flutter with rates average 60-90, was up to 150 briefly this am. No report of CP, palpitation. Continue Eliquis for anticoagulation. Can be discharged from cardiology perspective. Continue Metoprolol and Digoxin. Will need Digoxin level in 1 week. We will arrange for outpt Holter monitor and cardiolog follow up. We will eval him for future CVR, after 4 weeks anticoagulation. Did have afib with CVR in past. <NATHALIA Guevara - Last Filed: 09/18/20 12:52> Case discussed with Phylicia. Patient seen and examined. Patient denies any chest pain. Remains in atrial flutter with controlled ventricular response. Lungs-clear to auscultation Cardiac exam-irregular S1-S2 Controlled new onset atrial flutter. Prior history of paroxysmal atrial fibrillation with no cardiology follow-up. Can discharge home on current rate control regimen with metoprolol and digoxin. Continue full oral anticoagulation with Eliquis. Will set up for outpatient follow-up after Holter monitor. Patient can be discharged home. Thank you for allowing us to partake in his care <Delon Stevenson MD - Last Filed: 09/18/20 18:05> Fall Risk Details Current Medications: Current Medications Generic Name Dose Route Start Last Admin Trade Name Freq PRN Reason Stop Dose Admin Acetaminophen 650 mg 09/12/20 15:51 Acetaminophen 325 Mg Tablet PO Q6H PRN Pain, Mild (Pain Scale 1-3) Apixaban 5 mg 09/13/20 10:30 09/18/20 07:39 Apixaban 5 Mg Tablet PO 5 mg BID LEONEL Administration Digoxin 0.125 mg 09/16/20 12:00 09/18/20 11:39 Digoxin 0.125 Mg Tablet PO 0.125 mg Q2D LEONEL Administration Folic Acid 1 mg 09/15/20 09:00 09/18/20 07:39 Folic Acid 1 Mg Tablet PO 1 mg DAILY LEONEL Administration Medication 1 each 09/14/20 09:00 No Benzodiazepines MISCELLANE DAILY LEONEL Metoprolol Tartrate 100 mg 09/15/20 21:00 09/18/20 07:40 Metoprolol Tartrate 25 Mg Tablet PO 100 mg BID LEONEL Administration Protocol Ondansetron HCl 4 mg 09/12/20 15:51 Ondansetron Hcl 4 Mg/2 Ml Vial IVPUSH Q8H PRN Nausea and Vomiting Phenobarbital 15 mg 09/18/20 09:00 09/18/20 07:39 Phenobarbital 15 Mg Tablet PO 09/19/20 09:01 15 mg DAILY LEONEL Administration Sodium Chloride 3 ml 09/12/20 16:00 09/18/20 07:40 0.9 % Sodium Chloride Flush 3 Ml Syringe IVFLUSH 3 ml QSHIFT LEONEL Administration Thiamine HCl 100 mg 09/15/20 09:00 09/18/20 07:39 Thiamine Hcl 100 Mg Tablet PO 100 mg DAILY LEONEL Administration <NATHALIA Guevara - Last Filed: 09/18/20 12:52> Time Spent With Patient Time: Total time spent is greater than 50% in coordination of care (as documented) at patient's floor/unit and/or counseling patient: <NATHALIA Guevara - Last Filed: 09/18/20 12:52> Time with patient: 15 - 24 minutes <NATHALIA Guevara - Last Filed: 09/18/20 12:52>
--- NOTE | 2020-09-18 13:25 | PM.DS ---
DS: Providers Provider Date of admission: 09/12/20 12:03 Primary care physician: Krystyna Self MD Consults: 09/12/20 15:51 Consult to Cardiology Routine Consulting Provider: Onofre Gomez Reason for consultation: NEW ONSET AFLUTTER Has provider been notified: No DS: Diagnosis Discharge Diagnosis (1) Atrial flutter: Status: Acute DS: Medications Discharge Medications Home Medications: Home Medications Medication Instructions Recorded Confirmed amiodarone 200 mg PO BID 09/12/20 09/12/20 cyanocobalamin (vitamin B-12) 1,000 mcg PO DAILY 09/12/20 09/12/20 folic acid 1 mg PO DAILY 09/12/20 09/12/20 thiamine HCl (vitamin B1) 100 mg PO DAILY 09/12/20 09/12/20 DS: Summary Hospital Course Hospital Course: 80 year old man Presenting with chest pressure that started this morning. He reported no radiation or other associated symptoms. He denies any history of cardiac disease. in May of 2019 patient was admitted for palpitations and was found to have new onset atrial fibrillation with rapid ventricular response. He underwent synchronized cardioversion and was started on amiodarone drip. He was discharged on amiodarone and no anticoagulation likely due to history of GI bleed And alcohol use at the time. He denies any discomfort at this time. Upon arrival to the ER he was found to be in atrial flutter with heart rate in the 140s. His heart rate has improved significantlyHis initial troponin was 7.9. He was noted to have mildly decreased sodium of 131. Chronic kidney disease. Coronavirus PCR negative. He was given a dose of aspirin, therapeutic Lovenox and started on diltiazem drip. He be admitted for further management treatment of new onset atrial flutter. Pmx:Amputation of left index finger Hyperlipidemia Hypertension Hospital Course problem purcell section: 80 year old man admitted with new atrial flutter with history of atrial fibrillation in the past. Atrial flutter with RVR : Initially started on Cardizem drip. Subsequently heart rate seems improving , seen by cardiology and patient was switched to Metoprolol 100 mg b.i.d., digoxin 0.125 mg EOD. Continue Eliquis Confusion tought to be likely multifactorial from Alcohol withdrawal in possible underlying dementia impriving Started on phenobarbital, thiamine and folic acid: Patient mental status seems significantly improved, going with p.o. thiamine a and folic acid. Above management discussed with the patient in detail length she understand and in agreement with the above plan, time spent 50 minutes and 50% time spent on counseling. Significant findings: As above. Procedures performed: None. Treatment and response: As above. Complications: None. Time Spent with Patient Time attestation: Total time spent providing and/or coordinating discharge services: Physical Exam Vital Signs: Vital Signs: Last Vital Signs Temp 97.1 F 09/18/20 10:43 Pulse 72 09/18/20 11:39 Resp 18 09/18/20 10:43 BP 108/72 09/18/20 10:43 Pulse Ox 97 09/18/20 10:43 Body Mass Index 28.8 Physical exam: constitutional: not in distress Cvs: rrr, [id number] , no murmur res: clear to auscultation ,no rhonchii or wheezing abd: no rebound or guarding ,nt, bs present. ext pulses present , no cyanosis neuro: axo3 , nonfocal. DS: Data Data Completed and Pending Labs on day of discharge: 09/12/20 08:49 ECG 12 lead EKG Stat EKG Documentation DIRECTED XR chest 1V Stat 09/12/20 08:59 Aspirin Enteric Coated [Ecotrin] 162 mg PO ONCE ONE Enoxaparin Sodium [Lovenox] 80 mg SUBCUT ONCE ONE 09/12/20 09:00 0.9 % Sodium Chloride [Ns] 100 ml dilTIAZem HCL [Cardizem] 125 mg IVCONT Per Protocol mg/hr 09/12/20 09:01 dilTIAZem HCL [Cardizem] 10 mg IVPUSH ONCE ONE 09/12/20 09:06 Basic Metabolic Panel Stat Complete Blood Count Auto Diff Stat Magnesium Stat Thyroid Stimulating Hormone Stat Troponin-I High Sensitivity Stat 09/12/20 09:08 Partial Thromboplastin Time Stat Prothrombin Time INR Stat 09/12/20 09:11 dilTIAZem HCL [Cardizem] 125 mg IVCONT .STK-MED ONE 09/12/20 09:36 dilTIAZem HCL [Cardizem] 15 mg IVPUSH NOW STA 09/12/20 10:16 COVID-19 ID NOW (Apple) Stat 09/12/20 10:32 EKG Documentation DIRECTED 09/12/20 11:59 Transfer Order Routine 09/12/20 12:01 Add Laboratory Test Stat 09/12/20 12:04 Consult Rx Perform Med Rec 1 each MISCELLANE ONCE PRN 09/12/20 14:17 Ethanol Stat Troponin-I High Sensitivity Stat 09/12/20 Lunch Low Sodium Diet 09/12/20 16:00 Heparin Sodium,Porcine 5,000 unit SUBCUT Q12H 09/12/20 17:00 Glucose, Whole Blood Routine 09/13/20 CT head/brain wo con Routine 09/13/20 01:31 dilTIAZem HCL [Cardizem] 125 mg IVCONT .STK-MED ONE 09/13/20 03:33 Metoprolol Tartrate [Lopressor] 5 mg IVPUSH ONCE ONE 09/13/20 03:38 Metoprolol Tartrate [Lopressor] 5 mg .ROUTE .STK-MED ONE 09/13/20 07:04 Basic Metabolic Panel DAILY@0600 Complete Blood Count Auto Diff Routine Liver Panel Routine Magnesium Routine 09/13/20 08:36 Prothrombin Time INR Routine 09/13/20 10:30 Metoprolol Tartrate [Lopressor] 25 mg PO TID 09/13/20 13:09 dilTIAZem HCL [Cardizem] 125 mg IVCONT .STK-MED ONE 09/13/20 13:36 LORazepam [Ativan] 0.25 mg IM ONCE ONE 09/13/20 13:57 LORazepam [Ativan] 0.25 mg IM ONCE ONE 09/13/20 15:32 Consult Rx EtOH Phenob Dosing 6 each MISCELLANE ONCE ONE 09/13/20 15:45 PHENobarbitaL sodium 153 mg IM ONCE ONE 09/13/20 15:56 Haloperidol Lactate [Haldol] 2 mg IVPUSH ONCE ONE 09/13/20 16:23 Add Laboratory Test Routine Add Laboratory Test Routine 09/13/20 16:54 Consult Rx EtOH Phenob Dosing 1 each MISCELLANE ONCE ONE 09/13/20 17:15 PHENobarbitaL sodium 153 mg IM ONCE ONE 09/13/20 18:06 hydrOXYzine HCL [Atarax] 25 mg IM ONCE ONE 09/13/20 19:00 PHENobarbitaL sodium 115 mg IM 1900,2200 09/13/20 20:00 PHENobarbitaL sodium 115 mg IM Q3H 09/14/20 09:00 PHENobarbitaL 45 mg PO BID PHENobarbitaL 45 mg PO BID 09/14/20 10:12 Basic Metabolic Panel Routine Complete Blood Count Auto Diff Routine 09/14/20 10:45 Metoprolol Tartrate [Lopressor] 50 mg PO TID 09/14/20 15:51 CA echo transthoracic complete Routine 09/15/20 08:55 Basic Metabolic Panel Routine 09/15/20 22:58 ECG 12 lead EKG Stat EKG Documentation DIRECTED 09/15/20 23:09 Metoprolol Tartrate [Lopressor] 5 mg IVPUSH ONCE ONE 09/16/20 05:07 Metoprolol Tartrate [Lopressor] 5 mg IVPUSH ONCE ONE 09/16/20 08:50 Basic Metabolic Panel Routine 09/16/20 09:00 PHENobarbitaL 15 mg PO BID PHENobarbitaL 30 mg PO BID 09/17/20 03:27 Metoprolol Tartrate [Lopressor] 2.5 mg IVPUSH ONCE ONE 09/17/20 05:59 Complete Blood Count no Diff Routine 09/17/20 10:45 Digoxin [Lanoxin] 0.5 mg IVPUSH ONCE ONE 09/18/20 09:00 PHENobarbitaL 15 mg PO DAILY Laboratory Last Values WBC 6.3 X10*3/uL (4.8-10.8) 09/17/20 05:59 RBC 4.17 X10*6/uL (4.60-5.80) L 09/17/20 05:59 Hgb 14.7 g/dl (14.0-18.0) 09/17/20 05:59 Hct 42.8 % (42-52) 09/17/20 05:59 MCV 102.6 fL (80-98) H 09/17/20 05:59 MCH 35.3 pg (27.0-33.0) H 09/17/20 05:59 MCHC 34.3 g/dl (31.0-36.0) 09/17/20 05:59 RDW 11.7 % (11.0-16.0) 09/17/20 05:59 Plt Count 218 X10*3/uL (160-400) D 09/17/20 05:59 MPV 9.8 fL (9.4-12.4) 09/17/20 05:59 Immature Gran % (Auto) 0.3 % (0.0-0.4) 09/14/20 10:12 Neut % (Auto) 77.6 % (45-73) H 09/14/20 10:12 Lymph % (Auto) 12.7 % (20-40) L 09/14/20 10:12 [place] % (Auto) 6.4 % (2-11) 09/14/20 10:12 Eos % (Auto) 2.7 % (0-4) 09/14/20 10:12 Baso % (Auto) 0.3 % (0-2) 09/14/20 10:12 Lymph # (Auto) 0.7 X10*3/uL (1.2-4.9) L 09/14/20 10:12 [place] # (Auto) 0.4 X10*3/uL (0.1-1.2) 09/14/20 10:12 Eos # (Auto) 0.2 X10*3/uL (0.0-0.4) 09/14/20 10:12 Baso # (Auto) 0.0 X10*3/uL (0.0-0.2) 09/14/20 10:12 Abs Immat Gran (auto) 0.02 X10*3/uL (0.00-0.03) 09/14/20 10:12 Absolute Neuts (auto) 4.5 X10*3/uL (2.0-8.3) 09/14/20 10:12 Absolute Nucleated RBC 0.000 X10*3/uL (0.0-0.012) 09/17/20 05:59 Nucleated RBC % (auto) 0.0 /100WBC (0.0-0.2) 09/17/20 05:59 PT 17.2 SEC (10.8-13.0) H 09/13/20 08:36 INR 1.4 (0.9-1.1) H 09/13/20 08:36 APTT 36.8 SEC (24.1-38.0) 09/12/20 09:08 Hold Blue Top Cancelled 09/12/20 09:06 Sodium 130 mmol/L (135-145) L 09/16/20 08:50 Potassium 4.7 mmol/l (3.3-5.1) 09/16/20 08:50 Chloride 101 mmol/L (96-108) 09/16/20 08:50 Carbon Dioxide 21 mmol/L (22-29) L 09/16/20 08:50 Anion Gap 13 (-20) 09/16/20 08:50 BUN 22 mg/dL (9-16) H 09/16/20 08:50 Creatinine 1.39 mg/dL (0.5-1.4) 09/16/20 08:50 Estim Creat Clear Calc 43.1 09/16/20 08:50 Estimated GFR 49 09/16/20 08:50 POC Glucose 124 mg/dL (60-115) H 09/12/20 17:00 Random Glucose 126 mg/dL (60-115) H 09/16/20 08:50 Calcium 8.9 mg/dL (8.4-10.2) 09/16/20 08:50 Magnesium 2.3 mg/dL (1.6-2.6) 09/13/20 07:04 Total Bilirubin 1.7 mg/dL (0.0-1.0) H 09/13/20 07:04 Direct Bilirubin 0.8 mg/dL (0.0-0.5) H 09/13/20 07:04 AST 33 U/L (5-37) 09/13/20 07:04 ALT 23 U/L (0-40) 09/13/20 07:04 Alkaline Phosphatase 68 U/L (39-117) 09/13/20 07:04 Troponin I High Sens 6.6 ng/L (<3.5-35.0) 09/12/20 14:17 Total Protein 7.5 g/dL (6.5-8.0) 09/13/20 07:04 Albumin 4.0 g/dL (3.5-5.0) 09/13/20 07:04 TSH 0.79 uIU/mL (0.32-4.0) 09/12/20 09:06 Ethyl Alcohol < 10 mg/dL 09/12/20 14:17 COVID-19 (JUAN ANTONIO) Negative (Negative) 09/12/20 10:16 COVID-19 Clin Com See Note 09/12/20 10:16 Discharge Plan Discharge Patient Disposition: Home, Self-Care Referrals: Krystyna Self MD [Primary Care Provider] - Onofre Gomez MD [Physician] - (follow up in 1 week.) Discharge Medications: New Eliquis 5 mg Tablet 5 mg PO BID Qty: 30 RF: 0 digoxin 125 mcg (0.125 mg) Tablet 125 mcg PO Q2D Qty: 15 RF: 0 metoprolol tartrate 25 mg Tablet 100 mg PO BID Qty: 60 RF: 0 Continued thiamine HCl (vitamin B1) 100 mg Tablet 100 mg PO DAILY RF: 0 folic acid 1 mg Tablet 1 mg PO DAILY RF: 0 cyanocobalamin (vitamin B-12) 1,000 mcg Capsule 1,000 mcg PO DAILY RF: 0 Discontinued amiodarone 200 mg Tablet 200 mg PO BID RF: 0 Discharge Orders: Discharge Order (Routine); Ordered 09/18/20 Ordered By: Kole Lock Diet: advance to usual diet Activity on Discharge: As tolerated Discharge Date/Time: 09/18/20 15:31 Other Ambulatory Orders: Digoxin (Routine) Timeframe: 1 Week Facility: [facility] - Location: Laboratory Ordered By: Kole Lock Visit Report Forms: Patient Portal Discharge page Care Plan Goals: Patient came with arterial flutter-started on Cardizem and cardiology was consulted -Cardizem drip was started patient's heart rate subsequently switched to p.o. metoprolol and digoxin upon discharge further management outpatient as per PCP, continue Eliquis for anticoagulation. Further workup outpatient with Cardiology, cardiology may arrange their own appointment outpatient. Health Concerns: As above. Plan of Treatment: As above.
--- NOTE | 2020-09-18 13:32 | MHC.CM.PN ---
Patient is being discharged home today no services. Free 30 day trial of Eliqius coupon given to patient. Family will provide transport.
== END 2020-09-18 15:31 | disposition home or self-care (01) | DRG 309 ==
LOC: HO.ED 11:10 → HO.IMC 13:35
PROVIDERS: Internal Medicine; Nurse Practitioner Acute Care; Physician Assistant Medical; Admitting Provider Student in an Organized Health Care Education/Training Program; Emergency Provider Emergency Medicine; PCP Internal Medicine; Visit Provider Internal Medicine
DX: I48.3 Typical atrial flutter (principal); F10.239 Alcohol dependence with withdrawal, unspecified; E78.5 Hyperlipidemia, unspecified; I12.9 Hypertensive chronic kidney disease with stage 1 through stage 4 chronic kidney disease, or unspecified chronic kidney disease; N18.9 Chronic kidney disease, unspecified; D63.1 Anemia in chronic kidney disease; Z20.828 Contact with and (suspected) exposure to other viral communicable diseases; Z79.899 Other long term (current) drug therapy
CPT/HCPCS: 36415; 70450; 71045; 80048; 80076; 80320; 82947; 83735; 84443; 84484; 85025; 85027; 85610; 85730; 87635; 93005; 93306; 96372; 96374; 96376; 99284; 99291; J1650; J2060; J2560

== ENCOUNTER 2020-09-27 07:43 | Outpatient (REF) | payer MEDICARE, SELFPAY ==
[2020-09-27 08:32] LABS: MANUAL DIFF FLAG NO
[2020-09-27 08:37] LABS: Basophils Percent Auto 0.3 % (0-2); Eosinophils Absolute Auto 0.2 X10*3/uL (0.0-0.4); Eosinophils Percent Auto 2.2 % (0-4); Hematocrit 42.4 % (42-52); Hemoglobin 14.2 g/dl (14.0-18.0); Imm Gran Abs Auto 0.03 X10*3/uL (0.00-0.03); Imm Gran Pct Auto 0.3 % (0.0-0.4); Lymphocytes Absolute Auto 1.4 X10*3/uL (1.2-4.9); Lymphocytes Percent Auto 16.1 % (20-40); Mean Corpuscular HGB Conc 33.5 g/dl (31.0-36.0); Mean Corpuscular Volume 104.4 fL (80-98); Mean Platelet Volume 9.8 fL (9.4-12.4); Monocytes Absolute Auto 0.6 X10*3/uL (0.1-1.2); Monocytes Percent Auto 6.3 % (2-11); Neutrophils Absolute Auto 6.5 X10*3/uL (2.0-8.3); Neutrophils Percent Auto 74.8 % (45-73); Platelet Count 259 X10*3/uL (160-400); Red Blood Count 4.06 X10*6/uL (4.60-5.80); Red Cell Distribution Width 11.9 % (11.0-16.0); White Blood Count 8.7 X10*3/uL (4.8-10.8)
[2020-09-27 08:42] LABS: D Dimer 226 NG/ML
[2020-09-27 09:24] LABS: Alanine Aminotransferase 44 U/L (0-40); Albumin Level 3.6 g/dL (3.5-5.0); Alkaline Phosphatase 66 U/L (39-117); Anion Gap 12 (12-20); Aspartate Amino Transferase 36 U/L (5-37); Bilirubin Total 0.5 mg/dL (0.0-1.0); Blood Urea Nitrogen 16 mg/dL (9-16); Calcium 8.7 mg/dL (8.4-10.2); Carbon Dioxide 22 mmol/L (22-29); Chloride 104 mmol/L (96-108); Cholesterol 170 mg/dL; Estimated Glomerular Filt Rate 50; Glucose Random 100 mg/dL (60-115); HDL Cholesterol 46 mg/dL; LDL Cholesterol Calculated 105 mg/dl; Potassium 4.8 mmol/l (3.3-5.1); Sodium 133 mmol/L (135-145); Total Protein 7.2 g/dL (6.5-8.0); Triglycerides 95 mg/dL
[2020-09-27 09:34] LABS: Digoxin 0.4 ng/mL (0.8-2.0)
== END 2020-09-27 07:44 | disposition home or self-care (01) ==
LOC: HO.LAB 07:43
PROVIDERS: Visit Provider Internal Medicine
DX: I12.9 Hypertensive chronic kidney disease with stage 1 through stage 4 chronic kidney disease, or unspecified chronic kidney disease (principal); N18.9 Chronic kidney disease, unspecified; I48.19 Other persistent atrial fibrillation; M25.462 Effusion, left knee; R60.0 Localized edema; R73.9 Hyperglycemia, unspecified
CPT/HCPCS: 36415; 80053; 80061; 80162; 84443; 85025; 85379

== ENCOUNTER → 2020-10-09 10:54 | Outpatient (BNVA) | payer MEDICARE, SELFPAY | PROVIDERS: PCP Internal Medicine; Visit Provider Nurse Practitioner Family | DX: I48.3 Typical atrial flutter (principal); I48.91 Unspecified atrial fibrillation | CPT/HCPCS: 99212 ==

== ENCOUNTER 2020-10-16 08:39 | Outpatient (REF) | payer MEDICARE, SELFPAY ==
[2020-10-16 10:21] LABS: Anion Gap 14 (12-20); Blood Urea Nitrogen 15 mg/dL (9-16); Carbon Dioxide 23 mmol/L (22-29); Chloride 104 mmol/L (96-108); Estimated Glomerular Filt Rate 44; Glucose Fasting 173 mg/dL (60-99); Potassium 4.6 mmol/l (3.3-5.1); Sodium 136 mmol/L (135-145)
[2020-10-16 11:09] LABS: Digoxin < 0.3 ng/mL (0.8-2.0)
== END 2020-10-16 08:40 | disposition home or self-care (01) ==
LOC: HO.LAB 08:39
PROVIDERS: Internal Medicine; PCP Internal Medicine; Visit Provider Nurse Practitioner Family
DX: I48.3 Typical atrial flutter (principal); I48.92 Unspecified atrial flutter
CPT/HCPCS: 36415; 80048; 80162

== ENCOUNTER → 2020-10-25 10:17 | Outpatient (REF) | payer MEDICARE, SELFPAY ==
--- NOTE | 2020-10-25 12:55 | ECG_ITS ---
Hook-up date: 2020-10-25 12:12:00 Duration: 47:59:00 Test Indications: ATYPICAL ATRIAL FLUTTER Medications: 68532 QRS complexes 121 Ventricular ectopics which represent <1 % of total QRS comp. 2737 Supraventricular ectopics which represent 2 % of total QRS comp. * Paced QRS complexs which represent % of total QRS comp. VENTRICULAR ECTOPY 119 Isolated 0 Bigeminal Cycles 1 Couplets 0 Runs 0 Beats in Runs * Beats LONGEST at * BPM at :: -- * Beats FASTEST at * BPM at :: -- SUPRAVENTRICULAR ECTOPY 2616 Isolated 32 Couplets 14 Runs 57 Beats in Runs 7 Beats LONGEST at 113 BPM at 23:25:40 2020-10-25 3 Beats FASTEST at 154 BPM at 01:58:03 2020-10-26 HEART RATES 59 MIN at 12:59:45 2020-10-25 71 AVG 106 MAX at 18:38:51 2020-10-25 LONGEST RR 1.0960 secs at 15:47:49 2020-10-25 S-T LEVELS Channel 1 - 128 mm at 12:12:00 2020-10-25 - 128 mm at 12:12:00 2020-10-25 Channel 2 - 128 mm at 12:12:00 2020-10-25 - 128 mm at 12:12:00 2020-10-25 Channel 3 - 128 mm at 03:13:11 -- - 128 mm at 03:13:11 Underlying rhythm is sinus; Average ventricular rate 71/min; range 59-106/min; Frequent supraventricular ectopy (3%); mostly isolated; few brief runs; Rare ventricular ectopy; No sustained arrhythmias; Patient did not report any symptoms in the diary Referred By: Phylicia Gilman Overread By: LLOYD BRASHER
== END ==
LOC: HO.CARD 10:17
PROVIDERS: PCP Internal Medicine; Visit Provider Nurse Practitioner Family
DX: I48.3 Typical atrial flutter (principal)
CPT/HCPCS: 93226

== ENCOUNTER 2020-11-05 02:54 | Emergency (ER) | payer MEDICARE, SELFPAY ==
[2020-11-05] VITALS (8 sets, daily range): BP systolic 130–182; BP diastolic 69–84; PULSE 71–88; RESP 16–22; TEMP 36.7–37.3; O2SAT 95–100; BMI 27.2
--- NOTE | ~2020-11-05 | CT_ITS ---
EXAMINATION: CT CHEST ANGIOGRAM PE PROTOCOL CLINICAL INFORMATION: , Reason for Exam Severe sudden chest pain COMPARISON: Prior study from May 2019 TECHNIQUE: Volumetric imaging was performed through the chest. Reformatted coronal and sagittal imaging was performed. 3-D MIP images performed at a dedicated separate workstation. This CT examination was performed using dose optimization techniques as appropriate, variously including the following: *Automated exposure control *Adjustment of mA and/or kV according to patient size (this includes techniques or standardized protocols for targeted exams where dose is matched to indication/reason for exam; i.e. extremities or head) *Use of iterative reconstruction technique CONTRAST: 65 mL Omnipaque 350 injected DLP: 250 FINDINGS: PULMONARY ARTERIES: There is proper opacification of the pulmonary artery and its main branches. No CT evidence of pulmonary emboli. LINES/TUBES: None LUNGS: Lung Parenchyma: Mild interstitial infiltrate lung bases bilaterally. Lung Nodules:There is a 3 mm nodule left upper lobe image 21 series 12. There is no suspicious lung mass. AIRWAYS: There is intrabronchial 8mm soft tissue structure abutting the right lateral wall of the trachea approximately 3 cm proximal to its bifurcation, this has not changed from prior study of May 2019 the attenuation of its matrix is below 0 probably mucus or fatty polyp. PLEURA: No pleural effusion or pneumothorax. MEDIASTINUM AND RUDY: The visualized thyroid gland is unremarkable. No mediastinal, hilar or axillary lymphadenopathy. There is no mediastinal mass. VESSELS: Thoracic aorta is normal in size. HEART AND PERICARDIUM: Heart is normal in size. There is no pericardial effusion. There are mild coronary calcifications. CHEST WALL, LOWER NECK, SURROUNDING SOFT TISSUES: Normal VISUALIZED ABDOMEN: Unremarkable BONES: The visualized bony thorax is within normal limits. CT/CT angio chest PE protocol IMPRESSION: 1. No CT evidence of pulmonary emboli. 2. Diminished lung volume. 3. No suspicious lung mass, there are tiny lung nodules 3 mm or less. 4. Stable or recurrent intrabronchial intraluminal 8mm structure abutting the right lateral wall of the distal trachea about 3 cm proximal to the bifurcation which exhibits low attenuation suggesting fat content probably mucinous material or fatty polyp. Clinical correlation and follow-up recommended. 5. Mild infiltrate/atelectasis at lung bases. 6. Coronary calcification.
--- NOTE | ~2020-11-05 | XR_ITS ---
EXAMINATION: CHEST 2 VIEWS CLINICAL INFORMATION: Chest pain. COMPARISON: 09/12/2020. TECHNIQUE: PA and lateral views of the chest were obtained. FINDINGS: The cardiac silhouette is not enlarged. The mediastinal and hilar contours are unremarkable. There are neither pleural effusions nor pneumothoraces. There are no consolidations. The osseous structures are stable. XR/XR chest 2V IMPRESSION: No evidence for acute disease.
--- NOTE | 2020-11-05 03:04 | ECG_ITS ---
Test Reason : CHEST PAIN Blood Pressure : / mmHG Vent. Rate : 065 BPM Atrial Rate : 065 BPM P-R Int : 150 ms QRS Dur : 066 ms QT Int : 396 ms P-R-T Axes : 061 004 030 degrees QTc Int : 411 ms Normal sinus rhythm with sinus arrhythmia Normal ECG When compared with ECG of 15-SEP-2020 23:03, Sinus rhythm has replaced Atrial flutter Vent. rate has decreased BY 63 BPM Referred By: Generic ED Physician Electronically Signed By:LLOYD BRASHER
--- NOTE | 2020-11-05 03:33 | ED.CHESTPAIN ---
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 Patient used to get those pains 15- 20 years ago. Patient declined any recent travel, lower extremity swelling or prolonged immobilization. Patient also declined any chest trauma Related Data Home Medications Medication Instructions Recorded Confirmed cyanocobalamin (vitamin B-12) 1,000 mcg PO DAILY 09/12/20 10/09/20 folic acid 1 mg PO DAILY 09/12/20 10/09/20 thiamine HCl (vitamin B1) 100 mg PO DAILY 09/12/20 10/09/20 metoprolol tartrate 100 mg tablet 100 mg PO BID 10/09/20 10/09/20 digoxin 125 mcg (0.125 mg) tablet 125 mcg PO .every 48 h tab 10/16/20 Previous Rx's Medication Instructions Recorded apixaban [Eliquis] 5 mg PO BID #30 tab 09/18/20 Allergies Allergy/AdvReac Type Severity Reaction Status Date / Time avocado [AVOCADO] Allergy Severe DIFFICULTY Verified 11/05/20 02:56 BREATHING Review of Systems Review of Systems: All other systems are reviewed and are negative Constitutional: Reports as per HPI and Reports no additional constitutional complaints Eyes: Reports as per HPI and Reports no additional eye complaints Reports system reviewed and no additional complaints, except as documented Cardiovascular: Reports as per HPI and Reports no additional cardiovascular complaints Respiratory: Reports as per HPI and Reports no additional respiratory complaints Gastrointestinal: Reports as per HPI and Reports no additional gastrointestinal complaints Genitourinary: Reports no additional female genitourinary complaints Musculoskeletal: Reports no additional musculoskeletal complaints Skin/Breast: Reports system reviewed and no additional complaints, except as docu Psychiatric: Reports no additional psychiatric complaints Endocrine: Reports no additional endocrine complaints Hematologic/Lymphatic: Reports no additional hematologic/lymphatic complaints Allergic/Immunologic: Reports no additional allergic/immunologic complaints Reports system reviewed and no additional complaints, except as documented and Reports Abnormal speech present [facility] Past Medical History Medical History Afib Amputation of left index finger Hyperlipidemia Hypertension Family History Family History Other Hypertension Social History Social History Household Members: Spouse and Family Housing: House Alcohol intake: current Alcohol intake frequency: holidays/special occasions only Smoking Status: Never smoker Advance Directives: No Advance Directives Information Provided: No service: No Current occupational status: retired Physical Exam Vital Signs: Vital Signs: Last Vital Signs Temp 98.1 F 11/05/20 02:57 Pulse 88 11/05/20 06:00 Resp 19 11/05/20 06:00 BP 133/74 11/05/20 06:00 Pulse Ox 96 11/05/20 06:00 Body Mass Index 27.2 Vital signs have been reviewed as normal and appeared to be correct. Blood pressure in the high range. Heart rate normal. Respiration rate normal. Temperature normal. Oxygen saturation normal. Appearance: Alert. Oriented X3. No acute distress. Head: Normal external exam. Normocephalic. Atraumatic. No Mccabe signs noted. No raccoon eyes noted Eyes: PERRLA. EOMI. Conjunctiva and sclera normal. Eyelids normal. ENT:TM's Normal. Pharynx normal. Uvula midline. Moist mucous membranes. No trismus noted. No drooling noted. No muffled voice noted. Neck: Normal inspection. Neck supple. FROM. No adenopathy. Thyroid Normal. No meningeal signs. No neck mass noted. CVS: Normal heart rate and rhythm. Heart sound normal. No murmurs noted. Pulses normal throughout. Respiratory: No respiratory distress. Painless inspiration. Breath sounds normal. No wheezes/rales/rhonchi noted. Chest is tender to the left costochondral area. No accessory muscle usage noted or decreased air movement noted. Abdomen: Soft and nontender. Bowel sounds normal in all 4 quadrants. No distention noted. No organomegaly noted. No visible injury noted. Back: No CVA tenderness. Full range of motion noted. Skin: Skin warm and dry. Normal skin color. Normal skin turgor. No rashes/lesions/lacerations noted. Extremities: No lower extremity edema. Extremities exhibit normal range of motion. Extremities nontender. Neuro: Oriented X 3. No motor deficit. No sensory deficit. Reflexes normal. Course Course Course Narrative: Assessment and plan. 80-year-old male came in with left-sided chest pain, pain has been severe require narcotic while in the emergency department, patient had unremarkable EKG, 1st troponin was negative. Case signed out to Dr. Newman to check on the CT of the chest/2nd troponin. MDM - Chest Pain Lab Data Attestation: I reviewed the patient's lab results. Result diagrams: 11/05/20 03:40 11/05/20 03:40 Labs: Lab Results 11/05/20 11/05/20 11/05/20 Range/Units 03:40 03:40 03:40 WBC 8.5 (4.8-10.8) X10*3/uL RBC 4.29 L (4.60-5.80) X10*6/uL Hgb 14.9 (14.0-18.0) g/dl Hct 43.7 (42-52) % MCV 101.9 H (80-98) fL MCH 34.7 H (27.0-33.0) pg MCHC 34.1 (31.0-36.0) g/dl RDW 12.4 (11.0-16.0) % Plt Count 157 L D (160-400) X10*3/uL MPV 9.9 (9.4-12.4) fL Immature Gran % (Auto) 0.2 (0.0-0.4) % Neut % (Auto) 71.0 (45-73) % Lymph % (Auto) 20.2 (20-40) % [place] % (Auto) 6.8 (2-11) % Eos % (Auto) 1.3 (0-4) % Baso % (Auto) 0.5 (0-2) % Lymph # (Auto) 1.7 (1.2-4.9) X10*3/uL [place] # (Auto) 0.6 (0.1-1.2) X10*3/uL Eos # (Auto) 0.1 (0.0-0.4) X10*3/uL Baso # (Auto) 0.0 (0.0-0.2) X10*3/uL Abs Immat Gran (auto) 0.02 (0.00-0.03) X10*3/uL Absolute Neuts (auto) 6.0 (2.0-8.3) X10*3/uL Absolute Nucleated RBC 0.000 (0.0-0.012) X10*3/uL Nucleated RBC % (auto) 0.0 (0.0-0.2) /100WBC D-Dimer < 200 NG/ML Hold Blue Top SEE NOTE Troponin I High Sens 5.6 (<3.5-35.0) ng/L Imaging Data Chest x-ray: Radiologist's impression: No evidence for acute disease ECG Data ECG #1: Interpretation: Normal sinus rhythm with sinus arrhythmia at 65 beats per minutes, left axis deviation, normal intervals, no ST-T changes. Discharge Plan Discharge Prescriptions: No Action digoxin 125 mcg (0.125 mg) tablet 125 mcg PO .every 48 h RF: 0 thiamine HCl (vitamin B1) 100 mg Tablet 100 mg PO DAILY RF: 0 folic acid 1 mg Tablet 1 mg PO DAILY RF: 0 cyanocobalamin (vitamin B-12) 1,000 mcg Capsule 1,000 mcg PO DAILY RF: 0 Eliquis 5 mg Tablet 5 mg PO BID Qty: 30 RF: 0 metoprolol tartrate 100 mg tablet 100 mg PO BID RF: 0
[2020-11-05 03:44] LABS: Basophils Percent Auto 0.5 % (0-2); Eosinophils Absolute Auto 0.1 X10*3/uL (0.0-0.4); Eosinophils Percent Auto 1.3 % (0-4); Hematocrit 43.7 % (42-52); Hemoglobin 14.9 g/dl (14.0-18.0); Imm Gran Abs Auto 0.02 X10*3/uL (0.00-0.03); Imm Gran Pct Auto 0.2 % (0.0-0.4); Lymphocytes Absolute Auto 1.7 X10*3/uL (1.2-4.9); Lymphocytes Percent Auto 20.2 % (20-40); Mean Corpuscular HGB Conc 34.1 g/dl (31.0-36.0); Mean Corpuscular Hemoglobin 34.7 pg (27.0-33.0); Mean Corpuscular Volume 101.9 fL (80-98); Mean Platelet Volume 9.9 fL (9.4-12.4); Monocytes Absolute Auto 0.6 X10*3/uL (0.1-1.2); Monocytes Percent Auto 6.8 % (2-11); Platelet Count 157 X10*3/uL (160-400); Red Blood Count 4.29 X10*6/uL (4.60-5.80); Red Cell Distribution Width 12.4 % (11.0-16.0); White Blood Count 8.5 X10*3/uL (4.8-10.8)
[2020-11-05 03:45] LABS: MANUAL DIFF FLAG NO
[2020-11-05 03:57] LABS: D Dimer < 200 NG/ML
[2020-11-05 04:07] LABS: Troponin-I High Sensitivity 5.6 ng/L (<3.5-35.0)
[2020-11-05] MEDS: Morphine Sulfate 2 MG/ML CARTRIDGE IVPUSH (05:34)
--- NOTE | 2020-11-05 05:38 | PC.NURSE ---
pt placed on the monitor nsr hr 86. pt medicated for costral condritis pain accross his chest and is painful to the touch.
--- NOTE | 2020-11-05 06:31 | PC.NURSE ---
PT FAMILY MEMBER UPDATED ON PT STATUS. PT IS IN THE WAITING ROOM.
[2020-11-05 07:36] LABS: Alanine Aminotransferase 16 U/L (0-40); Albumin Level 4.1 g/dL (3.5-5.0); Alkaline Phosphatase 66 U/L (39-117); Anion Gap 17 (12-20); Aspartate Amino Transferase 33 U/L (5-37); Bilirubin Direct 0.7 mg/dL (0.0-0.5); Bilirubin Total 1.4 mg/dL (0.0-1.0); Blood Urea Nitrogen 12 mg/dL (9-16); Calcium 9.3 mg/dL (8.4-10.2); Carbon Dioxide 21 mmol/L (22-29); Chloride 104 mmol/L (96-108); Creatinine Clr Calc Pharmacy 42.9; Estimated Glomerular Filt Rate 51; Glucose Random 86 mg/dL (60-115); Lipase 19 U/L (8-78); Potassium 4.7 mmol/L (3.3-5.1); Sodium 137 mmol/L (135-145); Total Protein 7.5 g/dL (6.5-8.0)
[2020-11-05 07:37] LABS: Troponin-I High Sensitivity 5.2 ng/L (<3.5-35.0)
[2020-11-05] MEDS: iohexoL 350 MG/ML 100 ML INFUS..BTL IV (09:25)
== END 2020-11-05 11:06 | disposition home or self-care (01) ==
PROVIDERS: Emergency Provider Emergency Medicine; PCP Internal Medicine
DX: R07.9 Chest pain, unspecified (principal); J18.9 Pneumonia, unspecified organism; J98.09 Other diseases of bronchus, not elsewhere classified; I10 Essential (primary) hypertension; I48.91 Unspecified atrial fibrillation
CPT/HCPCS: 36415; 71046; 71275; 80048; 80076; 83690; 84484; 85025; 85379; 93005; 96374; 99284; J2270; Q9967

== ENCOUNTER 2020-11-15 11:47 | Outpatient (REF) | payer MEDICARE, SELFPAY | END 2020-11-15 11:48 | disposition home or self-care (01) | LOC: HO.LAB 11:47 | PROVIDERS: PCP Internal Medicine; Visit Provider Internal Medicine | DX: Z20.822 Contact with and (suspected) exposure to COVID-19 (principal) | CPT/HCPCS: 36415; C9803; U0003; U0005 ==

== ENCOUNTER → 2020-11-20 11:29 | Outpatient (BNVA) | payer MEDICARE, SELFPAY | PROVIDERS: PCP Internal Medicine; Visit Provider Nurse Practitioner Family | DX: R07.9 Chest pain, unspecified (principal); R94.39 Abnormal result of other cardiovascular function study; I48.3 Typical atrial flutter; I48.91 Unspecified atrial fibrillation | CPT/HCPCS: Q3014 ==

== ENCOUNTER → 2020-12-25 10:17 | Outpatient (BNVA) | payer MEDICARE, SELFPAY | PROVIDERS: PCP Internal Medicine; Visit Provider Nurse Practitioner Family | DX: R07.9 Chest pain, unspecified (principal); R94.39 Abnormal result of other cardiovascular function study; I48.3 Typical atrial flutter; I48.91 Unspecified atrial fibrillation | CPT/HCPCS: 93005; 99212 ==

== ENCOUNTER 2021-05-14 09:54 | Emergency (ER) | payer MEDICARE, SELFPAY | END 2021-05-14 10:33 | disposition left against medical advice (07) | PROVIDERS: Emergency Provider Emergency Medicine; PCP Internal Medicine | DX: M79.605 Pain in left leg (principal) ==

== ENCOUNTER 2021-05-14 11:51 | Outpatient (REF) | payer MEDICARE, SELFPAY ==
--- NOTE | ~2021-05-14 | XR_ITS ---
EXAMINATION: XR ANKLE, LEFT XR FOOT, LEFT CLINICAL INFORMATION: Ankle sprain. Evaluate for a fracture. COMPARISON: None. TECHNIQUE: AP, mortise, and lateral views of the left ankle. AP, oblique, and lateral views of the left foot. FINDINGS: Possible nondisplaced avulsion fracture at the inferior aspect of the lateral malleolus. Small tibiotalar marginal osteophytes. Joint space narrowing with tiny marginal osteophytes at the 1st metatarsophalangeal joint. No osseous erosion. Plantar and dorsal calcaneal enthesophytes. Lateral soft tissue swelling. XR/XR ankle LT min 3V IMPRESSION: Prominent lateral soft tissue swelling with a possible nondisplaced avulsion fracture at the inferior aspect of the lateral malleolus.
--- NOTE | ~2021-05-14 | XR_ITS ---
EXAMINATION: XR ANKLE, LEFT XR FOOT, LEFT CLINICAL INFORMATION: Ankle sprain. Evaluate for a fracture. COMPARISON: None. TECHNIQUE: AP, mortise, and lateral views of the left ankle. AP, oblique, and lateral views of the left foot. FINDINGS: Possible nondisplaced avulsion fracture at the inferior aspect of the lateral malleolus. Small tibiotalar marginal osteophytes. Joint space narrowing with tiny marginal osteophytes at the 1st metatarsophalangeal joint. No osseous erosion. Plantar and dorsal calcaneal enthesophytes. Lateral soft tissue swelling. XR/XR foot LT min 3V IMPRESSION: Prominent lateral soft tissue swelling with a possible nondisplaced avulsion fracture at the inferior aspect of the lateral malleolus.
[2021-05-14 13:00] LABS: MANUAL DIFF FLAG NO
[2021-05-14 13:16] LABS: Basophils Percent Auto 0.6 % (0-2); Eosinophils Absolute Auto 0.1 X10*3/uL (0.0-0.4); Eosinophils Percent Auto 1.3 % (0-4); Hematocrit 37.3 % (42-52); Hemoglobin 12.6 g/dl (14.0-18.0); Imm Gran Abs Auto 0.02 X10*3/uL (0.00-0.03); Imm Gran Pct Auto 0.4 % (0.0-0.4); Lymphocytes Percent Auto 22.2 % (20-40); Mean Corpuscular HGB Conc 33.8 g/dl (31.0-36.0); Mean Corpuscular Hemoglobin 34.6 pg (27.0-33.0); Mean Corpuscular Volume 102.5 fL (80-98); Mean Platelet Volume 9.6 fL (9.4-12.4); Monocytes Absolute Auto 0.4 X10*3/uL (0.1-1.2); Monocytes Percent Auto 7.7 % (2-11); Neutrophils Absolute Auto 3.2 X10*3/uL (2.0-8.3); Neutrophils Percent Auto 67.8 % (45-73); Platelet Count 177 X10*3/uL (160-400); Red Blood Count 3.64 X10*6/uL (4.60-5.80); Red Cell Distribution Width 13.2 % (11.0-16.0); White Blood Count 4.7 X10*3/uL (4.8-10.8)
[2021-05-14 13:51] LABS: Alanine Aminotransferase 15 U/L (0-40); Albumin Level 4.2 g/dL (3.5-5.0); Alkaline Phosphatase 78 U/L (39-117); Anion Gap 17 (12-20); Aspartate Amino Transferase 31 U/L (5-37); Bilirubin Total 0.8 mg/dL (0.0-1.0); Blood Urea Nitrogen 12 mg/dL (9-16); Calcium 9.2 mg/dL (8.4-10.2); Carbon Dioxide 19 mmol/L (22-29); Chloride 107 mmol/L (96-108); Cholesterol 216 mg/dL; Estimated Glomerular Filt Rate 50; Glucose Random 121 mg/dL (60-115); HDL Cholesterol 97 mg/dL; LDL Cholesterol Calculated 107 mg/dl; Potassium 4.4 mmol/L (3.3-5.1); Sodium 139 mmol/L (135-145); Total Protein 7.9 g/dL (6.5-8.0); Triglycerides 62 mg/dL
[2021-05-14 14:10] LABS: Thyroid Stimulating Hormone 0.66 uIU/mL (0.32-4.0)
[2021-05-14 14:24] LABS: Vitamin B12 196 pg/mL (200-900)
== END 2021-05-14 11:52 | disposition home or self-care (01) ==
LOC: HO.LAB 11:51
PROVIDERS: PCP Internal Medicine; Visit Provider Internal Medicine
DX: S93.402A Sprain of unspecified ligament of left ankle, initial encounter (principal); E78.00 Pure hypercholesterolemia, unspecified; F02.80 Dementia in other diseases classified elsewhere, unspecified severity, without behavioral disturbance, psychotic disturbance, mood disturbance, and anxiety; I12.9 Hypertensive chronic kidney disease with stage 1 through stage 4 chronic kidney disease, or unspecified chronic kidney disease; N18.9 Chronic kidney disease, unspecified; I48.3 Typical atrial flutter; X58.XXXA Exposure to other specified factors, initial encounter; Y93.9 Activity, unspecified; Y92.9 Unspecified place or not applicable; Y99.9 Unspecified external cause status
CPT/HCPCS: 36415; 73610; 73630; 80053; 80061; 82607; 84443; 85025

== ENCOUNTER → 2021-05-18 13:59 | Outpatient (BNVA) | payer MEDICARE, SELFPAY | PROVIDERS: Visit Provider Physician Assistant | DX: S93.402A Sprain of unspecified ligament of left ankle, initial encounter (principal) | CPT/HCPCS: 99202 ==

== ENCOUNTER 2021-06-08 07:07 | Emergency (ER) | payer MEDICARE, SELFPAY ==
--- NOTE | ~2021-06-08 | XR_ITS ---
EXAMINATION: XR KNEE, LEFT CLINICAL INFORMATION: Pain COMPARISON: Radiographs left knee 05/10/2018 TECHNIQUE: Four views of the left knee. FINDINGS: There is prominent tricompartment osteoarthropathy with marked joint narrowing and subchondral sclerosis and osteophyte. Joint narrowing greatest lateral compartment. There is borderline medial subluxation femur again seen. There is no fracture or dislocation or destructive process. Small to moderate suprapatellar effusion is present. There is spurring at the anterior mechanism, quadriceps insertion patella and at the origin patella tendon. Again, there are scattered coarse both the soft tissue mineralization, some could be intracapsular loose bodies. XR/XR knee LT 4V IMPRESSION: Prominent tricompartment osteoarthropathy. Small to moderate effusion. Possible loose bodies.
[2021-06-08 07:33] VITALS: BP 141/75; PULSE 116; RESP 18; TEMP 36.8; O2SAT 98; BMI 22.9
--- NOTE | 2021-06-08 07:33 | ED_ITS ---
HPI - Extremity Problem General Chief complaint: Extremity Problem Stated complaint: L KNEE PAIN Time Seen by Provider: 06/08/21 07:27 Source: patient and family Mode of arrival: ambulatory Limitations: no limitations History of Present Illness MD Complaint: joint swelling and joint paint Onset (ago): month(s) Pain Consistency: intermittent Location: left and knee Quality: aching Radiation: none Relieving factors: nothing Exacerbating factors: weight bearing, walking and palpation Associated symptoms: denies other symptoms Context: other (hx of prior episodes after a fall in March) Related Data Home Medications Medication Instructions Recorded Confirmed cyanocobalamin (vitamin B-12) 1,000 mcg PO DAILY 09/12/20 12/25/20 1,000 mcg capsule folic acid 1 mg tablet 1 mg PO DAILY 09/12/20 12/25/20 thiamine HCl (vitamin B1) 100 mg 100 mg PO DAILY 09/12/20 12/25/20 tablet atorvastatin 10 mg tablet 10 mg PO DAILY 11/20/20 12/25/20 Previous Rx's Medication Instructions Recorded doxycycline hyclate 100 mg tablet 100 mg PO BID 7 Days #14 tab 11/05/20 metoprolol tartrate 100 mg tablet 100 mg PO BID 30 Days #60 tab 11/08/20 amlodipine 2.5 mg tablet 2.5 mg PO DAILY #30 tab 11/20/20 rivaroxaban 15 mg tablet (Xarelto) 15 mg PO DAILY #30 tab 12/29/20 hydrocodone 5 mg-acetaminophen 325 1 tab PO Q6H PRN #12 tab 06/08/21 mg tablet Allergies Allergy/AdvReac Type Severity Reaction Status Date / Time avocado [AVOCADO] Allergy Severe DIFFICULTY Verified 06/08/21 07:40 BREATHING Review of Systems Review of Systems: Constitutional : No Fever, No Chills ENT/Mouth : No Ear Pain, No Hoarseness, No sore throat Eyes: No Eye Pain, No Swelling, No Redness, No Foreign Body Cardiovascular : No Chest Pain, No SOB Respiratory : No Cough, No Dyspnea Gastrointestinal : No Nausea, No Vomiting, No Diarrhea, No abdominal Pain Genitourinary : No Dysuria, No Hematuria Musculoskeletal : positive joint pain, No Myalgias, pos Joint Swelling Skin : No Skin lacerations, No rash Neuro : No Weakness, No Numbness, No Loss of Consciousness, No Dizziness, No Headache Psych : No Anxiety/Panic, No Depression Heme/Lymph: no easy bruising, no Lymphadenopathy Endocrine : No Polyuria, No Polydipsia All other systems reviewed and are negative [facility] Past Medical History Attestation statement: The following information was validated with the patient. Medical History Afib Amputation of left index finger Hyperlipidemia Hypertension Family History Family History Other Hypertension Social History Social History Household Members: Spouse and Family Housing: House Alcohol intake: never Patient Tobacco Use Status: Never used Tobacco Use of substances other than those prescribed or required for medical reasons: No Advance Directives: Yes Advance Directives Information Provided: Yes Advance Directives on File: No service: No Current occupational status: retired Physical Exam Vital Signs: Vital Signs: Last Vital Signs Temp 98.3 F 06/08/21 07:33 Pulse 116 H 06/08/21 07:33 Resp 18 06/08/21 07:33 BP 141/75 H 06/08/21 07:33 Pulse Ox 98 06/08/21 07:33 Body Mass Index 22.9 Appearance: Alert. Oriented X3. No acute distress. Eyes: Pupils equal, round and reactive to light. ENT: Pharynx normal. Neck: Normal inspection. Neck supple. CVS: Normal heart rate and rhythm. Pulses normal. Respiratory: No respiratory distress. Breath sounds normal. Abdomen: Soft and nontender. Skin: Skin warm and dry. Normal skin color. Normal skin turgor. Extremities: L knee small to moderate suprapatellar effusion no erythema no war mth distal NV intact, has bony deformity of medial aspect on L knee as well Neuro: Oriented X 3. No motor deficit. No sensory deficit. Course Course Course Narrative: will apply nasir wrap and refer to orthopedics, start on PRN pain medications doubt septic joint MDM - Extremity (Nontraumatic) MDM Narrative Medical decision making narrative: 81 yo male with HLD, aflutter he is now on coumadin but not compliant prior knee injury as a child as well as a fall in March in [place] - at this time mild to moderate effusion will need xrays, INR level - I do not suspect infection likely gouty arthritis vs hemarthrosis - at this time INR and xray ordered. Lab Data Labs: Lab Results 06/08/21 Range/Units 07:47 PT 17.1 H (9.9-13.0) SEC INR 1.5 H (0.9-1.1) Discharge Plan Discharge Clinical Impression: Effusion of left knee, Arthritis Patient Disposition: Home, Self-Care Instructions: Osteoarthritis (ED), Swollen Knee Joint (ED) Additional Instructions: nasir wrap for 1 week follow up with orthopedics Prescriptions: New hydrocodone-acetaminophen 5-325 mg tablet 1 tab PO Q6H PRN (Reason: pain) Qty: 12 RF: 0 No Action metoprolol tartrate 100 mg tablet 100 mg PO BID 30 Days Qty: 60 RF: 5 thiamine HCl (vitamin B1) 100 mg Tablet 100 mg PO DAILY RF: 0 folic acid 1 mg Tablet 1 mg PO DAILY RF: 0 cyanocobalamin (vitamin B-12) 1,000 mcg Capsule 1,000 mcg PO DAILY RF: 0 doxycycline hyclate 100 mg tablet 100 mg PO BID 7 Days Qty: 14 RF: 0 atorvastatin 10 mg tablet 10 mg PO DAILY RF: 0 amlodipine 2.5 mg tablet 2.5 mg PO DAILY Qty: 30 RF: 5 Xarelto 15 mg tablet 15 mg PO DAILY Qty: 30 RF: 5 Referrals: Ji Suh MD [Physician] - 1 week
[2021-06-08 08:02] LABS: INTERNATIONAL NORM RATIO 1.5 (0.9-1.1); Prothrombin Time 17.1 SEC (9.9-13.0)
== END 2021-06-08 09:35 | disposition home or self-care (01) ==
PROVIDERS: Emergency Provider Emergency Medicine; PCP Internal Medicine
DX: M17.12 Unilateral primary osteoarthritis, left knee (principal); M25.462 Effusion, left knee; Z79.899 Other long term (current) drug therapy
CPT/HCPCS: 36415; 73564; 85610; 99283

== ENCOUNTER → 2021-06-14 12:28 | Outpatient (BNVA) | payer MEDICARE, SELFPAY | PROVIDERS: PCP Internal Medicine; Visit Provider Physician Assistant | DX: M17.12 Unilateral primary osteoarthritis, left knee (principal) | CPT/HCPCS: 20610; 99202; J1040 ==

== ENCOUNTER 2021-10-24 06:58 | Outpatient (REF) | payer MEDICARE, SELFPAY ==
[2021-10-24 07:15] LABS: MANUAL DIFF FLAG NO
[2021-10-24 08:01] LABS: Basophils Percent Auto 0.5 % (0-2); Eosinophils Absolute Auto 0.1 X10*3/uL (0.0-0.4); Eosinophils Percent Auto 3.2 % (0-4); Hematocrit 41.2 % (42.0-52.0); Hemoglobin 13.9 g/dl (14.0-18.0); Imm Gran Abs Auto 0.01 X10*3/uL (0.00-0.03); Imm Gran Pct Auto 0.2 % (0.0-0.4); Lymphocytes Absolute Auto 1.3 X10*3/uL (1.2-4.9); Lymphocytes Percent Auto 29.3 % (20-40); Mean Corpuscular HGB Conc 33.7 g/dl (31.0-36.0); Mean Corpuscular Hemoglobin 33.8 pg (27.0-33.0); Mean Corpuscular Volume 100.2 fL (80.0-98.0); Mean Platelet Volume 9.8 fL (9.4-12.4); Monocytes Absolute Auto 0.4 X10*3/uL (0.1-1.2); Monocytes Percent Auto 9.3 % (2-11); Neutrophils Absolute Auto 2.5 x10*3/uL (2.0-8.3); Neutrophils Percent Auto 57.5 % (45-73); Platelet Count 140 X10*3/uL (160-400); Red Blood Count 4.11 X10*6/uL (4.60-5.80); Red Cell Distribution Width 12.6 % (11.0-16.0); White Blood Count 4.4 X10*3/uL (4.8-10.8)
[2021-10-24 08:28] LABS: Alanine Aminotransferase 12 U/L (0-40); Alkaline Phosphatase 72 U/L (39-117); Anion Gap 13 (12-20); Aspartate Amino Transferase 25 U/L (5-37); Blood Urea Nitrogen 19 mg/dL (9-16); Calcium 9.4 mg/dL (8.4-10.2); Carbon Dioxide 24 mmol/L (22-29); Chloride 104 mmol/L (96-108); Cholesterol 219 mg/dL; Estimated Glomerular Filt Rate 48; Glucose Random 109 mg/dL (60-115); HDL Cholesterol 75 mg/dL; LDL Cholesterol Calculated 129 mg/dl; Potassium 4.5 mmol/L (3.3-5.1); Sodium 136 mmol/L (135-145); Total Protein 7.3 g/dL (6.5-8.0); Triglycerides 76 mg/dL
[2021-10-24 08:52] LABS: Thyroid Stimulating Hormone 2.42 uIU/mL (0.32-4.0)
[2021-10-24 09:03] LABS: Vitamin B12 222 pg/mL (200-900)
== END 2021-10-24 06:59 | disposition home or self-care (01) ==
LOC: HO.LAB 06:58
PROVIDERS: PCP Internal Medicine; Visit Provider Internal Medicine
DX: Z00.00 Encounter for general adult medical examination without abnormal findings (principal); I12.9 Hypertensive chronic kidney disease with stage 1 through stage 4 chronic kidney disease, or unspecified chronic kidney disease; E78.01 Familial hypercholesterolemia; F10.20 Alcohol dependence, uncomplicated
CPT/HCPCS: 36415; 80053; 80061; 82607; 84443; 85025

== ENCOUNTER 2022-05-13 08:41 | Outpatient (REF) | payer MEDICARE, SELFPAY ==
[2022-05-13 09:44] LABS: Alanine Aminotransferase 25 U/L (0-40); Albumin Level 4.2 g/dL (3.5-5.0); Alkaline Phosphatase 81 U/L (39-117); Anion Gap 16 (12-20); Aspartate Amino Transferase 37 U/L (5-37); Bilirubin Total 0.7 mg/dL (0.0-1.0); Blood Urea Nitrogen 17 mg/dL (9-16); Calcium 9.5 mg/dL (8.4-10.2); Carbon Dioxide 24 mmol/L (22-29); Chloride 99 mmol/L (96-108); Cholesterol 191 mg/dL; Estimated Glomerular Filt Rate 42; Glucose Random 129 mg/dL (60-115); HDL Cholesterol 74 mg/dL; LDL Cholesterol Calculated 104 mg/dl; Potassium 4.6 mmol/L (3.3-5.1); Sodium 134 mmol/L (135-145); Total Protein 7.7 g/dL (6.5-8.0); Triglycerides 66 mg/dL
== END 2022-05-13 08:42 | disposition home or self-care (01) ==
LOC: HO.LAB 08:41
PROVIDERS: PCP Internal Medicine; Visit Provider Internal Medicine
DX: I12.9 Hypertensive chronic kidney disease with stage 1 through stage 4 chronic kidney disease, or unspecified chronic kidney disease (principal); I48.91 Unspecified atrial fibrillation; D51.9 Vitamin B12 deficiency anemia, unspecified; F10.20 Alcohol dependence, uncomplicated
CPT/HCPCS: 36415; 80053; 80061

== ENCOUNTER 2022-05-29 07:55 | Outpatient (REF) | payer MEDICARE, SELFPAY ==
[2022-05-29 08:39] LABS: COVID-19 Test Negative (Negative)
== END 2022-05-29 07:56 | disposition home or self-care (01) ==
LOC: HO.LAB 07:55
PROVIDERS: Visit Provider Internal Medicine
DX: Z20.822 Contact with and (suspected) exposure to COVID-19 (principal)
CPT/HCPCS: 87635; C9803

== ENCOUNTER 2022-06-27 06:36 | Outpatient (REF) | payer MEDICARE, SELFPAY ==
[2022-06-27 06:43] LABS: MANUAL DIFF FLAG NO
[2022-06-27 07:55] LABS: Basophils Absolute Auto 0.1 X10*3/uL (0.0-0.2); Basophils Percent Auto 0.9 % (0-2); Eosinophils Absolute Auto 0.2 X10*3/uL (0.0-0.4); Eosinophils Percent Auto 2.3 % (0-4); Hematocrit 40.6 % (42.0-52.0); Hemoglobin 13.6 g/dl (14.0-18.0); Imm Gran Abs Auto 0.01 X10*3/uL (0.00-0.03); Imm Gran Pct Auto 0.2 % (0.0-0.4); Lymphocytes Absolute Auto 1.7 X10*3/uL (1.2-4.9); Lymphocytes Percent Auto 26.3 % (20-40); Mean Corpuscular HGB Conc 33.5 g/dl (31.0-36.0); Mean Corpuscular Hemoglobin 34.9 pg (27.0-33.0); Mean Corpuscular Volume 104.1 fL (80.0-98.0); Mean Platelet Volume 10.3 fL (9.4-12.4); Monocytes Absolute Auto 0.6 X10*3/uL (0.1-1.2); Monocytes Percent Auto 9.9 % (2-11); Neutrophils Absolute Auto 3.9 x10*3/uL (2.0-8.3); Neutrophils Percent Auto 60.4 % (45-73); Platelet Count 154 X10*3/uL (160-400); Red Cell Distribution Width 12.7 % (11.0-16.0); White Blood Count 6.4 X10*3/uL (4.8-10.8)
[2022-06-27 08:10] LABS: Appearance Urine Clear; Color Urine Yellow; Glucose Urine UA Negative (Negative); Leukocyte Esterase Urine Negative (Negative); Nitrite Urine Negative (Negative); PH 5.5 (5.0-9.0); Urine Blood Negative (Negative); Urine Ketones Negative (Negative); Urine Protein Negative (Neg-Trace)
[2022-06-27 08:18] LABS: Anion Gap 16 (12-20); Blood Urea Nitrogen 19 mg/dL (9-16); Calcium 9.1 mg/dL (8.4-10.2); Carbon Dioxide 22 mmol/L (22-29); Chloride 103 mmol/L (96-108); Estimated Glomerular Filt Rate 40; Glucose Random 104 mg/dL (60-115); Potassium 5.2 mmol/L (3.3-5.1); Sodium 136 mmol/L (135-145)
[2022-06-27 10:16] LABS: Creatinine Urine 154.89 mg/dL; Protein/Creatinine Ratio, Ur 0.08 (<0.2); Total Protein Urine Random 13 mg/dL (<12)
== END 2022-06-27 06:37 | disposition home or self-care (01) ==
LOC: HO.LAB 06:36
PROVIDERS: PCP Internal Medicine; Visit Provider Internal Medicine Hypertension Specialist
DX: N18.31 Chronic kidney disease, stage 3a (principal)
CPT/HCPCS: 36415; 80048; 81003; 84156; 85025

== ENCOUNTER 2022-09-10 14:33 | Outpatient (REF) | payer MEDICARE, SELFPAY ==
--- NOTE | ~2022-09-10 | US_ITS ---
EXAMINATION: US RETROPERITONEAL LIMITED (RENAL ONLY) CLINICAL INFORMATION: Chronic kidney disease. COMPARISON: CT abdomen and pelvis without contrast 06/14/2019. Ultrasound retroperitoneal limited (renal only) 02/24/2019. TECHNIQUE: Real-time imaging of the kidneys. FINDINGS: RIGHT KIDNEY: 8.6 x 4.9 x 4.5 cm (SAG x AP x TRV). The kidney is smaller in size compared to the left kidney. No cortical thinning or increased echogenicity is appreciated. No calculi or focal parenchymal lesions. No hydronephrosis. LEFT KIDNEY: 11.1 x 5.7 x 3.9 cm (SAG x AP x TRV). The kidney is normal in size, contour, and echogenicity. Renal cortical thickness is normal. No calculi or focal parenchymal lesions. No hydronephrosis. US/US renal BI IMPRESSION: No evidence of obstructive uropathy or cortical thinning. Left kidney is larger than the right by over 2 cm with the right kidney measuring 8.6 cm in length.
== END 2022-09-10 14:34 | disposition home or self-care (01) ==
LOC: HO.US 14:33
PROVIDERS: Visit Provider Internal Medicine Hypertension Specialist
DX: N18.31 Chronic kidney disease, stage 3a (principal)
CPT/HCPCS: 76775

== ENCOUNTER 2022-10-31 06:54 | Outpatient (REF) | payer MEDICARE, SELFPAY ==
[2022-10-31 07:05] LABS: MANUAL DIFF FLAG NO
[2022-10-31 07:45] LABS: Basophils Percent Auto 0.6 % (0-2); Eosinophils Absolute Auto 0.1 X10*3/uL (0.0-0.4); Eosinophils Percent Auto 1.3 % (0-4); Hematocrit 44.8 % (42.0-52.0); Hemoglobin 14.9 g/dl (14.0-18.0); Imm Gran Abs Auto 0.01 X10*3/uL (0.00-0.03); Imm Gran Pct Auto 0.1 % (0.0-0.4); Lymphocytes Absolute Auto 2.1 X10*3/uL (1.2-4.9); Lymphocytes Percent Auto 31.2 % (20-40); Mean Corpuscular HGB Conc 33.3 g/dl (31.0-36.0); Mean Corpuscular Hemoglobin 34.7 pg (27.0-33.0); Mean Corpuscular Volume 104.2 fL (80.0-98.0); Monocytes Absolute Auto 0.6 X10*3/uL (0.1-1.2); Monocytes Percent Auto 9.3 % (2-11); Neutrophils Absolute Auto 3.9 x10*3/uL (2.0-8.3); Neutrophils Percent Auto 57.5 % (45-73); Platelet Count 175 X10*3/uL (160-400); Red Cell Distribution Width 14.2 % (11.0-16.0); White Blood Count 6.9 X10*3/uL (4.8-10.8)
[2022-10-31 08:20] LABS: Digoxin < 0.2 ng/mL (0.8-2.0)
[2022-10-31 08:35] LABS: Alanine Aminotransferase 17 U/L (0-40); Albumin Level 4.2 g/dL (3.5-5.0); Alkaline Phosphatase 78 U/L (39-117); Anion Gap 13 (12-20); Aspartate Amino Transferase 34 U/L (5-37); Bilirubin Total 1.4 mg/dL (0.0-1.0); Blood Urea Nitrogen 14 mg/dL (9-16); Calcium 9.7 mg/dL (8.4-10.2); Carbon Dioxide 24 mmol/L (22-29); Chloride 103 mmol/L (96-108); Cholesterol 198 mg/dL; Estimated Glomerular Filt Rate 40; Glucose Random 113 mg/dL (60-115); HDL Cholesterol 65 mg/dL; LDL Cholesterol Calculated 118 mg/dl; Potassium 5.1 mmol/L (3.3-5.1); Prostate Specific Antigen Scr 0.69 ng/mL (<0.05-4.0); Sodium 135 mmol/L (135-145); Total Protein 7.7 g/dL (6.5-8.0); Triglycerides 75 mg/dL
== END 2022-10-31 06:55 | disposition home or self-care (01) ==
LOC: HO.LAB 06:54
PROVIDERS: PCP Internal Medicine; Visit Provider Internal Medicine
DX: Z00.00 Encounter for general adult medical examination without abnormal findings (principal); Z12.5 Encounter for screening for malignant neoplasm of prostate; R74.01 Elevation of levels of liver transaminase levels; E78.00 Pure hypercholesterolemia, unspecified; F10.20 Alcohol dependence, uncomplicated; N18.9 Chronic kidney disease, unspecified; Z79.899 Other long term (current) drug therapy
CPT/HCPCS: 36415; 80053; 80061; 80162; 84153; 85025

== ENCOUNTER → 2022-11-06 12:47 | Outpatient (BNVA) | payer MEDICARE, SELFPAY | PROVIDERS: PCP Internal Medicine; Referring Provider Internal Medicine; Visit Provider Nurse Practitioner Family | DX: I48.3 Typical atrial flutter (principal); I48.91 Unspecified atrial fibrillation; R94.39 Abnormal result of other cardiovascular function study | CPT/HCPCS: 93005; 99212 ==

== ENCOUNTER → 2022-12-04 08:25 | Outpatient (REF) | payer MEDICARE, SELFPAY ==
--- NOTE | 2022-12-04 08:45 | HM_ITS ---
Conclusion: 1. Patient was monitored for total period of 2 days and 23 hours 2. Baseline rhythm is atrial fibrillation with average heart rate of 94 beats per minute slightly on the higher side but overall rate appears to be adequately control with only 12% of time heart rate greater than 100 beats per minute 3. No significant pauses noted 4. No patient reported events MTDD
--- NOTE | 2022-12-04 08:45 | CA_ITS ---
Transthoracic Echocardiogram Patient (Last, First, Middle): Arron Jean Baptiste A Gender: Male Date of : 1940 Age: 82 Procedure Date: 12/04/2022 Procedure Type: Transthoracic Echocardiogram Location: OP Height: 167.64 cm Weight: 71.67 kg BSA: 1.81 m2 Heart Rate: bpm BP: 150 / 82 mmHg Hand Candle Molder: TO Referring MD: Phylicia Gilman STOVE CARRIAGE OPERATORConnie Symptoms: I48.91 - Unspecified atrial fibrillation Study Quality: Fair ECG Rhythm: Atrial Fibrillation Conclusions: - The left ventricular systolic function is low normal. The calculated ejection fraction is 52% by biplane method. - There is moderately decreased right ventricular systolic function. - There is mild calcification of the aortic valve. - There is mild to moderate mitral valve regurgitation. - There is mild tricuspid valve regurgitation. Findings Left Ventricle Normal left ventricular cavity size. There is moderately increased left ventricular wall thickness. The left ventricular systolic function is low normal. The calculated ejection fraction is 52% by biplane method. There is no evidence of regional wall motion abnormalities. Diastolic function is indeterminate on the basis of available data. Right Ventricle Normal right ventricular cavity size. There is moderately decreased right ventricular systolic function. Atria Both atria are normal in size. Aortic Valve There is a normal trileaflet aortic valve. There is mild calcification of the aortic valve. There is no aortic valve stenosis. There is no aortic valve regurgitation. Mitral Valve There is mild mitral annular calcification. There is mild to moderate mitral valve regurgitation. There is no mitral valve stenosis. Pulmonic Valve The pulmonic valve is likely normal. Tricuspid Valve Normal tricuspid valve structure. There is mild tricuspid valve regurgitation. Top normal RVSP. Great Vessels The asc aorta is normal in size. Venous The inferior vena cava is normal in size and collapses greater than 50% with inspiration. Pericardium/Pleural There is no evidence of pericardial effusion. Prior Study Comparison Changes noted compared to prior study dated: 09/14/2020. LV/RV systolic function reduced. Measurements 2D Linear Measurements IVSd: 1.32 0.6-0.9/0.6-1.0 cm LVIDd: 3.75 3.9-5.3/4.2-5.9 cm LVIDd Index: 2.07 2.4-3.2/2.2-3.1 cm/m2 LVIDs: 2.46 2.0-3.6 cm LVPWd: 1.25 0.7-1.1 cm LA Diam: 4.20 2.7-3.8/3.0-4.0 cm LAIDs Index: 2.32 1.5-2.3 cm/m2 LV Mass: 207.69 67-162/88-224 g LV Mass Index: 114.75 43-95/49-115 g/m2 LVOT Diam: 2.00 3.0+(-)1.3 cm 2D Systolic Function EF 4C: 49.80 >55% EF 2C: 50.60 >55% EF BiP: 51.60 >55% Mitral Valve E'Lateral: 11.20 E'Medial: 8.05 Aortic Valve AoV Pk Tucker: 1.03 AoV Pk Grad: 4.00 LVOT LVOT Pk Tucker: 0.59 LVOT Mn Tucker: 0.37 LVOT VTI: 0.10 LVOT Pk Grad: 1.00 LVOT Mn Grad: 1.00 LVOT Diam: 2.00 LVOT Area: 3.14 Diastolic Function E'Medial: 8.05 E' Laterial: 11.20 Right Ventricle TAPSE (mm): 10.40 TVS' Tucker: 8.22 Tricuspid Valve TR Pk Tucker: 2.65 TR Pk Grad: 28.00 RA Press: 8.00 RVSP: 36.00 Great Vessels Aorta Sinus of Valsalva: 3.17 2.0-3.5 cm Ao Asc: 3.30 2.1-3.4 cm Updated in Other Vendor System with Status of Final Dorian Martin MD electronically signed on 12/06/2022 12:45:19 PM with status of Final
== END ==
LOC: HO.CARD 08:25
PROVIDERS: Visit Provider Nurse Practitioner Family
DX: I48.91 Unspecified atrial fibrillation (principal)
CPT/HCPCS: 93242; 93306

== ENCOUNTER 2024-03-26 06:09 | Outpatient (REF) | payer MEDICARE, SELFPAY ==
[2024-03-26 06:31] LABS: MANUAL DIFF FLAG NO
[2024-03-26 07:15] LABS: Eosinophils Absolute Auto 0.1 X10*3/uL (0.0-0.4); Eosinophils Percent Auto 2.3 % (0-4); Hematocrit 43.1 % (42.0-52.0); Hemoglobin 15.3 g/dl (14.0-18.0); Imm Gran Abs Auto 0.01 X10*3/uL (0.00-0.03); Imm Gran Pct Auto 0.3 % (0.0-0.4); Lymphocytes Absolute Auto 1.4 X10*3/uL (1.2-4.9); Lymphocytes Percent Auto 35.5 % (20-40); Mean Corpuscular HGB Conc 35.5 g/dl (31.0-36.0); Mean Corpuscular Hemoglobin 36.6 pg (27.0-33.0); Mean Corpuscular Volume 103.1 fL (80.0-98.0); Mean Platelet Volume 9.9 fL (9.4-12.4); Monocytes Absolute Auto 0.3 X10*3/uL (0.1-1.2); Monocytes Percent Auto 7.5 % (2-11); Neutrophils Absolute Auto 2.1 x10*3/uL (2.0-8.3); Neutrophils Percent Auto 53.4 % (45-73); Platelet Count 161 X10*3/uL (160-400); Red Blood Count 4.18 X10*6/uL (4.60-5.80); Red Cell Distribution Width 12.4 % (11.0-16.0)
[2024-03-26 07:52] LABS: Alanine Aminotransferase 26 U/L (0-40); Alkaline Phosphatase 83 U/L (39-117); Anion Gap 14 (12-20); Aspartate Amino Transferase 47 U/L (5-37); Bilirubin Total 0.7 mg/dL (0.0-1.0); Blood Urea Nitrogen 12 mg/dL (9-16); Calcium 9.6 mg/dL (8.4-10.2); Carbon Dioxide 23 mmol/L (22-29); Chloride 105 mmol/L (96-108); Cholesterol 204 mg/dL (<200); Estimated Glomerular Filt Rate 43; Glucose Random 90 mg/dL (60-115); HDL Cholesterol 77 mg/dL (>40); LDL Cholesterol Calculated 112 mg/dL (<100); Potassium 4.2 mmol/L (3.3-5.1); Sodium 138 mmol/L (135-145); Triglycerides 76 mg/dL (<150)
== END 2024-03-26 06:10 | disposition home or self-care (01) ==
LOC: HO.LAB 06:09
PROVIDERS: PCP Internal Medicine; Visit Provider Internal Medicine
DX: E78.00 Pure hypercholesterolemia, unspecified (principal); F10.20 Alcohol dependence, uncomplicated; I12.9 Hypertensive chronic kidney disease with stage 1 through stage 4 chronic kidney disease, or unspecified chronic kidney disease; I48.91 Unspecified atrial fibrillation
CPT/HCPCS: 36415; 80053; 80061; 85025

== ENCOUNTER 2024-06-14 14:25 | Outpatient (REF) | payer MEDICARE, SELFPAY ==
[2024-06-14 16:41] LABS: Digoxin 0.2 ng/mL (0.8-2.0)
[2024-06-14 16:48] LABS: Alanine Aminotransferase 40 U/L (0-40); Albumin Level 4.6 g/dL (3.5-5.0); Alkaline Phosphatase 114 U/L (39-117); Anion Gap 16 (12-20); Aspartate Amino Transferase 66 U/L (5-37); Blood Urea Nitrogen 14 mg/dL (9-16); Calcium 10.6 mg/dL (8.4-10.2); Carbon Dioxide 24 mmol/L (22-29); Chloride 99 mmol/L (96-108); Cholesterol 241 mg/dL (<200); Estimated Glomerular Filt Rate 47; Glucose Random 105 mg/dL (60-115); HDL Cholesterol 100 mg/dL (>40); LDL Cholesterol Calculated 127 mg/dL (<100); Potassium 4.7 mmol/L (3.3-5.1); Sodium 134 mmol/L (135-145); Total Protein 8.9 g/dL (6.5-8.0); Triglycerides 72 mg/dL (<150)
[2024-06-14 17:28] LABS: Folate 5.9 ng/mL (> or = 4.0); Vitamin B12 318 pg/mL (200-900)
== END 2024-06-14 14:26 | disposition home or self-care (01) ==
LOC: HO.LAB 14:25
PROVIDERS: PCP Internal Medicine; Visit Provider Internal Medicine
DX: I12.9 Hypertensive chronic kidney disease with stage 1 through stage 4 chronic kidney disease, or unspecified chronic kidney disease (principal); I48.91 Unspecified atrial fibrillation; R32 Unspecified urinary incontinence; W19.XXXS Unspecified fall, sequela; Z91.199 Patient's noncompliance with other medical treatment and regimen due to unspecified reason; F02.80 Dementia in other diseases classified elsewhere, unspecified severity, without behavioral disturbance, psychotic disturbance, mood disturbance, and anxiety
CPT/HCPCS: 36415; 80053; 80061; 80162; 82607; 82746; 84443; 85025; 87086

== ENCOUNTER 2024-06-22 14:23 | Outpatient (REF) | payer MEDICARE, SELFPAY ==
[2024-06-22 14:38] LABS: MANUAL DIFF FLAG NO
[2024-06-22 15:48] LABS: Basophils Absolute Auto 0.1 X10*3/uL (0.0-0.2); Basophils Percent Auto 0.8 % (0-2); Eosinophils Absolute Auto 0.1 X10*3/uL (0.0-0.4); Eosinophils Percent Auto 1.1 % (0-4); Hematocrit 42.9 % (42.0-52.0); Hemoglobin 14.8 g/dl (14.0-18.0); Imm Gran Abs Auto 0.03 X10*3/uL (0.00-0.03); Imm Gran Pct Auto 0.5 % (0.0-0.4); Lymphocytes Absolute Auto 0.9 X10*3/uL (1.2-4.9); Lymphocytes Percent Auto 13.9 % (20-40); Mean Corpuscular HGB Conc 34.5 g/dl (31.0-36.0); Mean Corpuscular Hemoglobin 35.8 pg (27.0-33.0); Mean Corpuscular Volume 103.9 fL (80.0-98.0); Mean Platelet Volume 10.1 fL (9.4-12.4); Monocytes Absolute Auto 0.6 X10*3/uL (0.1-1.2); Monocytes Percent Auto 8.7 % (2-11); Neutrophils Absolute Auto 4.9 x10*3/uL (2.0-8.3); Platelet Count 148 X10*3/uL (160-400); Red Blood Count 4.13 X10*6/uL (4.60-5.80); White Blood Count 6.5 X10*3/uL (4.8-10.8)
== END 2024-06-22 14:24 | disposition home or self-care (01) ==
LOC: HO.LAB 14:23
PROVIDERS: PCP Internal Medicine; Visit Provider Internal Medicine
DX: I12.9 Hypertensive chronic kidney disease with stage 1 through stage 4 chronic kidney disease, or unspecified chronic kidney disease (principal); F02.80 Dementia in other diseases classified elsewhere, unspecified severity, without behavioral disturbance, psychotic disturbance, mood disturbance, and anxiety; I48.91 Unspecified atrial fibrillation; R32 Unspecified urinary incontinence; W19.XXXS Unspecified fall, sequela; Z91.199 Patient's noncompliance with other medical treatment and regimen due to unspecified reason
CPT/HCPCS: 36415; 85025

== ENCOUNTER 2024-06-28 09:35 | Outpatient (AMB) | payer MEDICARE, SELFPAY ==
[2024-06-28 09:40] VITALS: BP 128/72; PULSE 119; BMI 24.6
--- NOTE | 2024-06-28 09:40 | MHC.OFFVIS ---
Vital Signs 06/28/24 09:40 Height 5 ft 6 in Weight 152 lb 8.958 oz BMI 24.6 BP 128/72 Blood Pressure Location Lt brachial Position Sitting Pulse 119 H Pulse Source Monitor Intake Visit Reasons: Overdue Follow up Millinery Copyist Required: No Exhaust Equipment Operator: Exhaust Equipment Operator Present Allergies avocado [AVOCADO] Allergy (Severe, Verified 06/28/24 09:42) DIFFICULTY BREATHING Medication List - Last Reconciled 06/28/24 by Phylicia Gilman NP-C No Known Home Meds HPI HPI Overdue Follow up: Details: Arron is an 84-year-old male with past medical history of hypertension, hyperlipidemia, atrial fibrillation status post cardioversion 2018 with recurrent atrial flutter/fibrillation who is now being treated with rate control, abnormal nuclear stress test 2020, managed medically who now presents for follow-up. His last prior visit to our office was 11/06/2022. Today he reports that he has been feeling well with no concerning symptoms. He denies shortness of breath, PND, orthopnea or edema. No chest discomfort at rest or with activity. No heart palpitations, lightheadedness, presyncope, syncope. Daughter tells me he has recently been diagnosed with dementia. He walks frequently and did get lost recently. He has not been taking meds for an unclear amount of time. Daughter tells me she will start taking over his med management. [facility] Medical History Afib Amputation of left index finger Hyperlipidemia Hypertension Family History Mother Hypertension Father Heart disease Social History Household Members: Spouse and Family Housing: House Alcohol intake: current Alcohol intake frequency: 3 or more drinks per day Alcohol type: beer and hard liquor Comment: across from RN station Patient Tobacco Use Status: Never used Tobacco service: No Current occupational status: retired Review of Systems Const Details: forgetful per daughter. walks frequently All systems reviewed & are unremarkable except as noted in HPI and below ENT Denies dizziness Card Denies chest pain, Denies chest pain at rest, Denies chest pain with activity, Denies rapid heart rate, Denies pedal edema, Denies edema, Denies leg edema, Denies lightheadedness, Denies palpitations, Denies dyspnea, Denies dyspnea on exertion and Denies orthopnea Resp Denies cough, Denies dyspnea and Denies dyspnea on exertion GI Denies hematochezia and Denies change in stool character Musc Denies abnormal gait, Reports limited range of motion, Reports muscle cramps, Denies muscle weakness, Denies numbness, Denies radiating pain into limb, Denies stiffness and Denies tingling Neuro Denies abnormal gait, Denies dizziness, Denies numbness and Denies tingling Endo Denies palpitations Physical Exam Vital Signs: BMI result Body Mass Index 24.6 Const General: cooperative, healthy appearing, comfortable and no acute distress Orientation/consciousness: patient oriented x3 Neck Neck: Yes normal visual inspection and Yes no JVD Carotids: normal carotid upstroke Resp Effort & Inspection: normal respiratory effort Auscultation: clear to auscultation bilaterally, no crackles, no rales, no rhonchi and no wheezes Cardio Jugular venous distension: no JVD Rate: regular rate Rhythm: abnormal rhythm Heart sounds: S1 normal heart sound present, S2 normal heart sound present, no gallops, no murmurs and no rubs Peripheral pulses: Peripheral pulses 2+ throughout GI Inspection: Yes normal to inspection Neuro General: patient oriented x3 Extrem General: Yes normal to inspection, No no pedal edema and No calf tenderness Psych Other: seems appropriate Office Procedures EKG Details: Today, read by me, atrial fibrillation with rapid ventricular response, rate 119, QTC 441 milliseconds [id number], Complete Assessment & Plan Assessment & Plan (1) Afib: Comment: 2019 with cardioversion Code(s): I48.91 - Unspecified atrial fibrillation Category: Medical Plan: History of atrial fibrillation with failed rhythm control approach. He has been treated with heart rate control for the last few years. As of last visit 11/06/2022 he was on metoprolol tartrate 100 mg b.i.d. and he was to start on Xarelto 15 mg daily. They were unable to afford the co-pay for Eliquis. He has not been in the office since that time. Today he reports feeling well with no concerning symptoms. He has a new diagnosis of dementia. He has not been taking any medications for a prolonged period of time according to his daughter. EKG done today showing atrial fibrillation with rapid ventricular response, rate 119. He denies any heart palpitations. On exam he does not appear fluid overloaded. Need for rate slowing medication and anticoagulation discussed with patient and daughter. Will start him on metoprolol tartrate 50 mg b.i.d.. He may need further titration to control rate. Will check an office EKG in 7-10 days. Calculated creatinine clearance 38.17. Will start Xarelto 15 mg daily. If they are not able to afford the co-pay, instructed to notify this office. Discussed option of Coumadin if unable to afford DOAC. Last echo was done 12/04/2022 showing EF 52%, [id number] MR. Since he has no signs of heart failure will hold off on repeat echo at this time. Informed them that his EF may have decreased and to watch for any signs of fluid retention. Once med seems optimized will check a Holter to assess rate control. Cardiology follow-up in 3 months, sooner if needed (2) Abnormal nuclear stress test: Code(s): R94.39 - Abnormal result of other cardiovascular function study Category: Medical Plan: Prior reports chest discomfort. A nuclear stress test done at [facility] on 11/06/2020 shows fair functional capacity, abnormal myocardial perfusion imaging, with small area of mid to distal anterior septal ischemia, EF 61% at rest and 63% with stress. He was managed medically. At this time he denies any anginal sounding symptoms. He is not on aspirin. He will be starting Xarelto as above. He has not been taking atorvastatin or metoprolol. Labs done 06/14/2024 had shown LDL 127. Will restart atorvastatin. Rate elevated and will be restarting metoprolol. Signs and symptoms of angina reviewed Plan Time spent on chart review, documentation, interview and assessment Medications: New metoprolol tartrate 50 mg PO BID 60 tabs 5RF atorvastatin 10 mg PO DAILY 30 tabs 5RF Refilled rivaroxaban (Xarelto) must administer with evening meal 15 mg PO DAILY 30 tabs 5RF Coding Level of Care Code Est Pt Level 4 (63202) Diagnoses Afib I48.91 Abnormal nuclear stress test R94.39 CPT Codes EKG - CPT: [id number], Complete ([id number]) Time Spent (min) 28
== END 2024-06-28 10:08 | disposition home or self-care (01) ==
PROVIDERS: PCP Internal Medicine; Visit Provider Nurse Practitioner Family
DX: I48.91 Unspecified atrial fibrillation (principal); R94.39 Abnormal result of other cardiovascular function study
CPT/HCPCS: 93010; 99214

== ENCOUNTER → 2024-06-28 09:35 | Outpatient (BNVA) | payer MEDICARE, SELFPAY | PROVIDERS: PCP Internal Medicine; Visit Provider Nurse Practitioner Family | DX: I48.91 Unspecified atrial fibrillation (principal); R94.39 Abnormal result of other cardiovascular function study | CPT/HCPCS: 93005; 99212 ==

== ENCOUNTER → 2024-07-09 10:34 | Outpatient (BNVA) | payer MEDICARE, SELFPAY | PROVIDERS: PCP Internal Medicine; Visit Provider Nurse Practitioner Family ==

== ENCOUNTER → 2024-07-16 10:20 | Outpatient (REF) | payer MEDICARE, SELFPAY ==
--- NOTE | 2024-07-16 10:24 | HM_ITS ---
* Total monitoring time 3 days. * Underlying rhythm is atrial fibrillation. Average ventricular rate 89/Min. About 16% of the time, rate > 100/Min. * Rare ventricular ectopy. * No significant pauses or high-grade AV blocks. * No patient markers or diary events. * Overall, atrial fibrillation with less than optimal rate control. MTDD
== END ==
LOC: HO.CARD 10:20
PROVIDERS: PCP Internal Medicine; Visit Provider Internal Medicine Cardiovascular Disease
DX: I48.91 Unspecified atrial fibrillation (principal)
CPT/HCPCS: 93242

== ENCOUNTER → 2024-07-16 10:24 | Outpatient (BNV) | payer MEDICARE, SELFPAY | PROVIDERS: PCP Internal Medicine; Visit Provider Internal Medicine | DX: I48.91 Unspecified atrial fibrillation (principal) | CPT/HCPCS: 93244 ==

== ENCOUNTER 2024-11-04 14:34 | Emergency (ER) | payer MEDICARE, SELFPAY ==
[2024-11-04] VITALS (7 sets, daily range): BP systolic 138–168; BP diastolic 53–96; PULSE 86–115; RESP 16–93; TEMP 36.7–38.3; O2SAT 95–100; BMI 21.4
--- NOTE | ~2024-11-04 | CT_ITS ---
CLINICAL HISTORY: Fall CT abdomen and pelvis without contrast Comparison: CT - ABD PELVIS WO CONT [id number] - 06/14/19 17:01 EDT Findings: Mild dependent changes of the lung bases. No consolidation or pleural effusion. Mild irregularity of the liver contour. No obvious focal liver lesion. Moderately severe pancreatic atrophy. Unremarkable spleen, Adrenal glands and kidneys. No calcified gallstones. Severe colonic diverticulosis without current evidence of diverticulitis. No bowel edema or bowel obstruction. Pelvic contents unremarkable. Normal appendix. No acute fracture. IMPRESSION: 1. No hemoperitoneum or abdominal organ injury. 2. Severe colonic diverticulosis. 3. Irregular liver contour suggesting a degree of cirrhosis. This document has been electronically signed by: Denisa Schmidt MD on 11/04/2024 17:03:34
--- NOTE | ~2024-11-04 | CT_ITS ---
EXAMINATION: CT HEAD WITHOUT CONTRAST CLINICAL INFORMATION: Fall. COMPARISON: CT brain 09/13/2020 TECHNIQUE: Contiguous axial imaging was performed from the skull base to vertex without intravenous administration of contrast. This CT examination was performed using dose optimization techniques as appropriate, variously including the following: *Automated exposure control *Adjustment of mA and/or kV according to patient size (this includes techniques or standardized protocols for targeted exams where dose is matched to indication/reason for exam; i.e. extremities or head) *Use of iterative reconstruction technique DLP: 1125 FINDINGS: There is no acute intra-axial, extra-axial bleed, masses or midline shift. There is no acute infarction in evolution. There is no edema. There is diffuse periventricular hypodensity in both cerebral hemispheres without mass effect. Bone windows reveal no calvarial abnormality. There is no scalp soft tissue abnormality. Bilateral paranasal sinuses and mastoid air cells are well-aerated. There is mild degenerative changes right TM joint. CT/CT head/brain wo IV con IMPRESSION: No acute intracranial process seen. Electronically signed by: Santino Crespo MD 11/04/2024 05:05 PM MALINI
--- NOTE | ~2024-11-04 | CT_ITS ---
EXAMINATION: CT CERVICAL SPINE WITHOUT CONTRAST CLINICAL INFORMATION: Fall. Head strike. COMPARISON: CT cervical spine 06/14/2019 TECHNIQUE: Axial 3 mm thin and reformatted 2 mm thin sagittal and coronal images of cervical spine were obtained. This CT examination was performed using dose optimization techniques as appropriate, variously including the following: *Automated exposure control *Adjustment of mA and/or kV according to patient size (this includes techniques or standardized protocols for targeted exams where dose is matched to indication/reason for exam; i.e. extremities or head) *Use of iterative reconstruction technique DLP: 1125 mGy/cm. FINDINGS: On sagittal reconstructed images there is mild straightening of cervical lordosis. The vertebral alignment is normal. There is mild compression deformities of C3, C4, C5, C6 and C7 vertebrae likely old. There is loss of C7-T1 and C4-5 disc heights. There is moderate left C2-3, C3-4, C4-5 and C5-6 facet joint arthropathy and hypertrophy. No visible acute fracture, dislocation or subluxation seen. The pharyngeal and tracheal airway is widely patent the lung apices are clear The prevertebral and paravertebral soft tissues are normal. CT/CT cervical spine wo IV con IMPRESSION: Mild straightening of cervical lordosis likely spasm. No visible acute fracture, dislocation or subluxation seen. There are compression deformities of several cervical vertebrae likely osteoporotic. Degenerative facet joint arthropathy as described above. Fleischner guidelines were followed. Electronically signed by: Santino Crespo MD 11/04/2024 05:10 PM MALINI
--- NOTE | ~2024-11-04 | CT_ITS ---
CLINICAL HISTORY: Fall. fever. pneumonia? CT chest without contrast Comparison: CT - CT ANGIO CHEST PE PROTOCOL - 11/05/20 08:47 EST Findings: Mildly enlarged heart. [id number] coronary artery calcification. The visualized thyroid and mediastinum are unremarkable. There is mild dependent atelectasis within the bilateral lungs. No consolidation, pleural effusion or pneumothorax. Irregular liver contour. Marked pancreatic volume loss. Nondisplaced fracture of the anterolateral aspect of the right 6th rib (9, 95 ). Subacute healing fractures of the right 7th and 8th ribs. IMPRESSION: There is an acute appearing fracture of the right 6th rib. There are subacute healing fractures of the right 7th and 8th ribs. This document has been electronically signed by: Denisa Schmidt MD on 11/04/2024 17:07:26
--- OUTSIDE RECORDS SUMMARY | 2024-11-04 15:12 | XMS_ITS | Data Portability ---
Author Organization [place] - [facility] Address [address] [place] [id number] Care Team Providers Care Court Advocate Name Role Phone KAIN ESPINOZA Primary Care Provider [facility] OTHER Assessment Encounter Date Assessment Date Assessment LastModified by Organization Details LastModified Time 11/24/2020 11/24/2020 History and overview 80yoM new to pmhx HTN, HDL, Afib on Digoxin and Eliquis is seen for 2 days of cough. Unknown fevers. Loss of appetite today. Patient denies cp or sob. Daughter, who lives with the patient was diagnosed with covid last week. Patient had a negative rapid covid test today. Patient had his initial Pfizer covid vaccine 11/14/2020 and also had the flu shot this year. Patient denies LE swelling, abdominal pain, nausea, vomiting or urinary symptoms. Exam Patient febrile, well appearing heart irreg irreg lungs CTA abdomen soft and non tender Ddx covid pna-will obtain cxr but lungs cta at this time endocarditis-doubt as no murmur PE doubt as patient is not tachycardic or hypoxic and no signs of DVT Work up and results cxr pending cbc pending chem 8 performed on scene na 131 k 4.2 cl 99 ca 1.15 co2 22 glucose 122 bun 14 creatinine 1.3 hct 39 hb 13.3 nion gap 15 rapid flu neg Assessment and plan Patient is febrile but non toxic appearing seen for a fever and a cough. Patient has had positive exposure to a covid patient, his daughter. He did have a negative COVID test today but it was a rapid test. We will perform a pcr test. Rapid flu negative. Lungs sounds are CTA but due to fever will obtain a CXR to eval for an underlying pna. Tylenol given on scene for fever. Patient encouraged to drink fluids. Precautions given to again seek care if the patient develops a worsened cough, cp sob, or feels he is going to pass out. Patient verbalized understanding and was agreebale Time On Scene with Patient: 00:37:53 [email or web address] Not available 11/24/2020 20:23:35 11/29/2020 11/29/2020 Overview/History :T is a 80-year-old male that was evaluated last week for complaints of cough and fever. His chest x-ray was negative and labs were unimpressive. He was swabbed for COVID-19 but the specimen was lost at the lab. He is being seen today for specimen recollection. Exam: On exam patient is awake and alert, afebrile and hemodynamically stable. Lungs clear bilaterally. He appears in no acute distress. DDx considered, but not limited to:Specimen recollection. Work up/Results: Plan/Discussion:Matthew linn was advised to continue self-quarantine until the results of his COVID tests have come back. It does sound as though he is overall improving. Emergency room precautions given. We reviewed the quarantining protocols. In order to obtain further information and compare any laboratory results/values, I have accessed old patient records. This information was pertinent in my medical decision making today. Time On Scene with Patient: 00:20:10 Time On Scene with Patient: 00:20:10 [email or web address] Not available 12/01/2020 08:31:45 Plan of Treatment Reminders Order Date Submit Date Provider Last Modified By Organization Details Last Modified Time Details Appointments None recorded. 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 Procedures None recorded. Surgeries None recorded. Imaging XR, chest, 2 view 2020 [facility] ([facility] [address] [facility], [place], [address], 15:51:01 Medication Orders acetaminoph en 325 mg tablet 2020 [email or web address] Not available 20:16:16 Patient TargetsNo targets recorded. Patient InstructionsNo instructions recorded. Reason for Referral None Reported. Results Created Date Observation Date Name Description Value Unit Range Abnormal Flag Note LastModifiedBy Organization Detail LastModifiedTime 11/24/1911/25/2020 CBC w/ auto diff WBC 7.9 K/mm3 (4.0-1 1.0) Not Available [facility] [address] [place], [address], 11/25/2020 02:56:34 11/24/1911/25/2020 CBC w/ auto diff RBC 3.77 M/mm3 (4.70- 6.10) low Not Available [facility] [address] [place], [address], 11/25/2020 02:56:34 11/24/19 21 11/25/2020 CBC w/ auto diff HGB 12.6 gm/dL (13.7- 17.1) low Not Available [facility] [address] [place], [address], 11/25/2020 02:56:34 11/24/19 21 11/25/2020 CBC w/ auto diff HCT 38.4 % (40.5- 50.0) low Not Available [facility] [address] [place], [address], 11/25/2020 02:56:34 11/24/19 21 11/25/2020 CBC w/ auto diff MCV 101.9 fL (80.0- 94.0) high Not Available [facility] [address], [address], 11/25/2020 02:56:34 11/24/19 21 11/25/2020 CBC w/ auto diff MCH 33.4 pg (27.0- 34.0) Not Available [facility] [address] [place], [address], 11/25/2020 02:56:34 11/24/19 21 11/25/2020 CBC w/ auto diff MCHC 32.8 g/dL (33.0- 37.0) low Not Available [facility] [address] [place], [address], 11/25/2020 02:56:34 11/24/19 21 11/25/2020 CBC w/ auto diff plt 223 K/mm3 (150-4 60) Not Available [facility] [address] [place], [address], 11/25/2020 02:56:34 11/24/19 21 11/25/2020 CBC w/ auto diff RDW-SD 46.7 fL (<47.0 ) Not Available [facility] [address] [place], [address], 11/25/2020 02:56:34 11/24/19 21 11/25/2020 CBC w/ auto diff MPV 10.8 fL (9.4-1 2.4) Not Available [facility] [address] [place], [address], 11/25/2020 02:56:34 11/24/19 21 11/25/2020 CBC w/ auto diff automated NRBC 0.0 #/100 _WBC' s Not Available [facility] [address] [place], [address], 11/25/2020 02:56:34 11/24/19 21 11/25/2020 CBC w/ auto diff abs. NRBC 0.0 K/mm3 Not Available [facility] [address] [place], [address], 11/25/2020 02:56:34 11/24/19 21 11/25/2020 CBC w/ auto diff neut # 5.8 K/mm3 (1.3-7 .0) Not Available [facility] [address] [place], [address], 11/25/2020 02:56:34 11/24/19 21 11/25/2020 CBC w/ auto diff lymph # 1.3 K/mm3 (0.8-3 .1) Not Available [facility] [address] [place], [address], 11/25/2020 02:56:34 11/24/19 21 11/25/2020 CBC w/ auto diff mono# 0.7 K/mm3 (0.4-1 .3) Not Available [facility] [address] [place], [address], 11/25/2020 02:56:34 11/24/19 21 11/25/2020 CBC w/ auto diff eo # 0.1 K/mm3 (0.0-0 .4) Not Available [facility] [address] [place], [address], 11/25/2020 02:56:34 11/24/19 21 11/25/2020 CBC w/ auto diff baso # 0.0 K/mm3 (0.0-0 .1) Not Available [facility] [address] [place], [address], 11/25/2020 02:56:34 11/24/19 21 11/25/2020 CBC w/ auto diff abs. imm gran 0.0 K/mm3 Not Available [facility] [address] [place], [address], 11/25/2020 02:56:34 11/24/19 21 11/25/2020 CBC w/ auto diff neut 73.8 % (44-76 ) Not Available [facility] [address] [place], [address], 11/25/2020 02:56:34 11/24/19 21 11/25/2020 CBC w/ auto diff lymph 16.1 % (15-43 ) Not Available [facility] [address] [place], [address], 11/25/2020 02:56:34 11/24/19 21 11/25/2020 CBC w/ auto diff monocyte 8.2 % (4.5-1 0.5) Not Available [facility] [address] [place], [address], 11/25/2020 02:56:34 11/24/19 21 11/25/2020 CBC w/ auto diff eo 1.1 % (0-6) Not Available [facility] [address] [place], [address], 11/25/2020 02:56:34 11/24/19 21 11/25/2020 CBC w/ auto diff baso 0.4 % (0-2) Not Available [facility] [address] [place], [address], 11/25/2020 02:56:34 11/24/19 21 11/25/2020 CBC w/ auto diff imm gran 0.4 % Not Available [facility] [address] [place], [address], 11/25/2020 02:56:34 11/24/19 21 11/24/2020 rapid flu (A+B) Flu A negati ve Not Available [facility] [address] [place], [address], 11/24/2020 17:43:56 11/24/19 21 11/24/2020 rapid flu (A+B) Flu B negati ve Not Available [facility] [address] [place], [address], 11/24/2020 17:43:56 11/24/19 21 11/24/2020 rapid flu (A+B) Control Visual ized / Valid Not Available [facility] [address] [place], [address], 11/24/2020 17:43:56 11/24/19 21 11/24/2020 BMP + ioniz ed calci um, serum or plasm a glu 122 mg/dL 70-105 [facility] Available [facility] [address] [place], [address], 11/24/2020 17:56:40 11/24/19 21 11/24/2020 BMP + ioniz ed calci um, serum or plasm a BUN 14 mg/dL 8-26 Not Available [facility] [address] [place], [address], 11/24/2020 17:56:40 11/24/19 21 11/24/2020 BMP + ioniz ed calci um, serum or plasm a crea 1.3 mg/dL 0.6-1. 3 Not Available [facility] [address] [place], [address], 11/24/2020 17:56:40 11/24/19 21 11/24/2020 BMP + ioniz ed calci um, serum or plasm a Na 131 mmol/ L 138-14 6 Not Available [facility] [address], [address], 11/24/2020 17:56:40 11/24/19 21 11/24/2020 BMP + ioniz ed calci um, serum or plasm a K 4.2 mmol/ L 3.5-4. 9 Not Available [address], [address], 11/24/2020 17:56:40 11/24/19 21 11/24/2020 BMP + ioniz ed calci um, serum or plasm a cL 99 mmol/ L 98-109 Not Available [address], [address], 11/24/2020 17:56:40 11/24/19 21 11/24/2020 BMP + ioniz ed calci um, serum or plasm a TCO2 22 mmol/ L 24-29 Not Available [address], [address], 11/24/2020 17:56:40 11/24/19 21 11/24/2020 BMP + ioniz ed calci um, serum or plasm a angap 15 mmol/ L 10-20 Not Available [address], [address], 11/24/2020 17:56:40 11/24/19 21 11/24/2020 BMP + ioniz ed calci um, serum or plasm a ica 1.15 mmol/ L 1.12-1 .32 Not Available [address], [address], 11/24/2020 17:56:40 11/24/19 21 11/24/2020 BMP + ioniz ed calci um, serum or plasm a HCT 39 %pcv 38-51 Not Available [address], [address], 11/24/2020 17:56:40 11/24/19 21 11/24/2020 BMP + ioniz ed calci um, serum or plasm a Hb 13.3 g/dL 09-14 Not Available [facility] [address] [place], [address], 11/24/2020 17:56:40 11/30/19 21 11/30/2020 covid -19 (nove l coron aviru s) PCR covid-19 PCR result (neg) NEGAT OLEG 2018- novel Coron aviru s (2018nCoV ) not detec bailey by RT-PC R. Note: If clini colleen suspi cion for COVID -19 is high, fifi nue to maint ain preca ution s and consi car repea t testi ng. Resul t repor bailey to the [facility]. All test resul ts must be corre lated with clini colleen findi ngs. This test has been autho rized by the FDA under an Emerg ency Use Autho rizat ion (EUA) for use by autho rized labor atori es. Testi ng perfo rmed on the [facility] [employer] a assay utili zing trans cript ion-m ediat ed ampli ficat ion (TMA) . Not Available [facility] [address], [place], [address], 11/30/2020 13:24:57 11/30/19 21 11/30/2020 covid -19 (nove l coron aviru s) PCR covid-19 PCR specimen source NASAL Not Available [facility] [address], [place], [address], 11/30/2020 13:24:57 11/25/19 21 11/25/2020 XR, chest , 2 view XRAY CHEST 2 VIEW FINDIN GS: The heart is normal in size and config uratio n. The medias tinum is normal withou t adenop athy. The lung weber are clear withou t mass, infilt rate, conges tion, or effusi on. Bony struct ures are unrema rkable withou t acute fractu re or destru ctive lesion s. CONCLU REG: No acute cardio pulmon hayley diseas e seen. ELECTR ONICAL LY SIGNED BY JONAH Bower D.O. 021 3:38:1 2 PM EST. XRAY CHEST 2 VIEW Result s: The heart is normal in size and config uratio n. The medias tinum is normal withou t adenop athy. The lung weber are clear withou t mass, infilt rate, conges tion, or effusi on. Bony struct ures are unrema rkable withou t acute fractu re or destru ctive lesion s. Conclu reg: No acute cardio pulmon hayley diseas e seen. Electr onical ly signed by JONAH Bower D.O. 021 3:38:1 2 PM EST. [email or web address] [facility] [address] [place], [address], 11/30/2020 10:48:04 Result Notes None recorded. Procedures Surgical History Date Name Laterality Status Provider Name and Address Organization Details Recorded Time procedure on knee completed MATTHEW MCPHERSON [address] [place], [address], [place] [facility] 11/24/2020 20:15:35 procedure on hand completed MATTHEW MCPHERSON [address], [place], [address], [place] [facility] 11/24/2020 20:15:44 Imaging Results Imaging Date Name Status LastModified by [facility] Details LastModified Time 11/25/2020 XR, chest, 2 view completed [email or web address] [facility] ([facility]) [address] [place], [address], 11/30/2020 10:48:04 Procedure Notes None recorded. Medical Equipment None Reported. Allergies Allergen ID Allergen Name Allergen Category Reaction Reaction Severity Criticality Documentation Date Start Date Code Code System Note Provider Name and Address Organization Details Recorded Time 590389 avocado allergeni c extract food Not available Not available Not available 11/24/2020 15838 2 RxNorm MATTHEW MCPHERSON [address] [place], [address], [place] [facility] 20:13:57 Medications Name Sig Start Date Stop Date Status Note LastModified by Organization Details LastModified Time atorvastati n 40 mg tablet 11/24 completed Not Available Not Available Not Available acetaminoph en 325 mg tablet 650 mg PO administe red on scene. Time administe red: 2020 active Not Available Not Available Not Avai lable atorvastati n 10 mg tablet TAKE 1 TABLET BY MOUTH EVERY DAY active Not Available Not Available No t Available metoprolol tartrate 100 mg tablet TAKE 1 TABLET BY MOUTH TWICE A DAY active Not Available Not Available No t Available amlodipine 2.5 mg tablet 11/24 completed Not Available Not Available Not Available acetaminoph en 500 mg tablet TAKE 2 TABLETS BY MOUTH EVERY 6 HOURS active Not Available Not Available No t Available digoxin 125 mcg (0.125 mg) tablet TAKE 1 TABLET BY MOUTH EVERY 48 HOURS FOR 30 DAYS active Not Available Not Available No t Available timolol maleate 0.5 % eye drops INSTILL 1 DROP INTO BOTH EYES TWICE A DAY 11/24 completed Not Available Not Available Not Available Eliquis 5 mg tablet TAKE 1 TABLET BY MOUTH TWICE A DAY active Not Available Not Available No t Available Vitals Date Recorded Oxygen saturation Oxygen saturation in Arterial blood by Pulse oximetry Heart rate Body temperature Respiratory rate Systolic blood pressure Diastolic blood pressure Provider Name and Address Organization Details Last Updated DateTime 1 97 % 97 % 88 /min 102 [degF] 20 /min 120 mm[Hg] 70 mm[Hg] Not Available [facility] 17:36:28 Date Recorded Body temperature Respiratory rate Oxygen saturation Oxygen saturation in Arterial blood by Pulse oximetry Heart rate Systolic blood pressure Diastolic blood pressure Provider Name and Address Organization Details Last Updated DateTime 1 99 [degF] 16 /min 100 % 100 % 68 /min 106 mm[Hg] 58 mm[Hg] Not Available [facility] 15:28:41 Social History Question Answer Notes LastModified by Organizat ion Details LastModified Time Tobacco Smoking Status Former Smoker MATTHEW MCPHERSON [address] [place], [address], [place] [facility] 11/24/2020 20:14:43 Do You Have An Advance Directive? No [email or web address] Information not available 11/24/2020 What Is Your Code Status? Full Code [email or web address] Information not available 11/24/2020 Within The Past 12 Months, Has It Happened That The Food You Bought Just Didn't Last And You Didn't Have Money To Get More. No [email or web address] Information not available 11/24/2020 Within The Past 12 Months, Have You Worried That Your Food Would Run Out Before You Got Money To Buy More. No [email or web address] Information not available 11/24/2020 Fall Risk: Do You Feel Unsteady When Standing Or Walking? No [email or web address] Information not available 11/24/2020 We Know That How And When People Interact With Friends And Family Can Be Very Different From Person To Person. How Often Do You Have The Opportunity To See Or Talk To People That You Care About And Feel Close To? (Ex: Talking To Friends On The Phone Or Visiting Friends Or Family Or Going To [employer] Or Club Meetings) 5 Or More Times Per Week [email or web address] Information not available 11/24/2020 Excessive Alcohol Or Drug Use No [email or web address] Information not available 11/24/2020 We Know From Many Of Our Patients That Covering All Of Their Costs Can Be Difficult At Times. This Can Cause Stress And Impact Health. In The Past Year, Have You Been Unable To Get Any Of The Following When It Was Really Needed? No [email or web address] Information not available 11/24/2020 What Is Your Housing Situation Today? I Have Housing [email or web address] Information not available 11/24/2020 Would You Like Help Connecting To Resources? None Information not available 11/24/2020 Sex: Unknown Functional Status None recorded. Mental Status None recorded. Family History Relationship Description Onset Age of this Age Resolved Age Notes LastModified by Organization Details LastModified Time Father Coronary arterioscler osis [email or web address] Not available 2020 20:14:36 Medical History Condition Response Diabetes N Coronary Artery Disease N Cancer N Stroke N Asthma N COPD N Depression N High Cholesterol Y Pulmonary Embolism N Hypertension Y Kidney Disease N Past Encounters Encounter ID Performer Location Encounter Start Date Encounter Closed Date Diagnosis/Indication Diagnosis SNOMED-CT Code Diagnosis ICD10 Code Diagnosis Note [id number] MATTHEW MCPHERSON [facility] [address] [place] [address] 11/24/2020 17:01:15 11/27/2020 10:53:58 Cough with fever 086702811 R05 Exposure t o communicable disease 648270663 Z20.822 [id number] HENOK COHEN NP [facility] [address] [facility] [place] [address] 11/29/2020 14:31:44 12/04/2020 09:50:17 Exposure to communicable disease 628519163 Z20.822 Health Concerns Section Related Observation LastModified by Organization Detai ls LastModified Time None Recorded Concern Status LastModified by Organization Details LastModified Time None Recorded Advance Directives Directive N: Payers Encounter Date Sequence Insurance Name Policy Number Policy [place] Covered Member ID [place] Member ID Guarantor Name 11/24/2020 1 [facility] - MEDICARE PREFERRED (MEDICARE REPLACEMENT HMO) [facility] Arron Jean Baptiste [id number] Arron Jean Baptiste 11/24/2020 2 [place] [employer] Arron Jean Baptiste [id number] Arron Jean Baptiste 11/29/2020 1 [facility] MEDICARE PREFERRED (MEDICARE REPLACEMENT HMO) [facility] Arron Jean Baptiste [id number] Arron Jean Baptiste Notes Date Note Type Note Provider Name and Address Organization Details Recorded Time 11/24/2020 text/html 80yoM new to pmhx HTN, HDL, Afib on Digoxin and Eliquis is seen for 2 days of cough. Unknown fevers. Loss of appetite today. Patient denies cp or sob. Daughter, who lives with the patient was diagnosed with covid last week. Patient had a negative rapid covid test today. Patient had his initial Pfizer covid vaccine 11/14/2020 and also had the flu shot this year. Patient denies LE swelling, abdominal pain, nausea, vomiting or urinary symptoms. MATTHEW MCPHERSON [address], [place], [address], [place] [facility] 11/24/2020 20:24:14 11/29/2020 text/html This is a 80-year-old male that is known [facility]. He was evaluated on 11/24 for cough and fever. He had a workup included a chest x-ray which is negative and blood work was also negative for infection. He was swabbed for COVID-19. The specimen was lost at the lab. His family is requesting a recollection. HENOK COHEN NP [address] [place] [address], [address], [place] [facility] 12/07/2020 17:10:31
--- OUTSIDE RECORDS SUMMARY | 2024-11-04 15:12 | XMS_ITS | Clinical Summary ---
Author Organization [address] [place] [address] Address [address] [place] [address] Phone Care Team Providers Care Rabbit Fancier Name Role Phone Krystyna Self MD Primary Care Provider [phone] Allergies Active Allergy Reactions Criticality Noted Date Comments Fruit Extracts Swelling 04/10/2012 Vacodos Medications Medication Sig Dispensed Refills Start Date End Date Status aspirin 81 mg EC tablet Take 1 Tab by mouth daily. 02/05/2012 Active metoprolol tartrate (LOPRESSOR) 25 mg tablet Take 1 Tab by mouth 2 times daily. 09/21/2012 Active travoprost (TRAVATAN Z) 0.004 % drops 1 Drop at bedtime. O.U. Active Active Problems Problem Noted Date Diagnosed Date Hypercholesteremia 10/28/2011 Old [place] (myocardial infarction) 08/09/2011 Overview (07/26/2024): Non STEMI 10/09 Glaucoma 10/11/2006 Encounters Date Type Department Care Team Description 09/20/2024 9:45 AM EST Office Visit Orthopedic Surgery [facility] [address] [facility] [address] [place] [phone] Francois Reagan DPM Arthritis of both feet (Primary Dx); PAD (peripheral artery disease) (CMS/HCC); Pain in toes of both feet; Dermatophytosis, nail from Last 3 Months Immunizations Name Administration Dates Next Due Influenza trivalent, 0.5mL, preservative free (Fluarix; FluLaval; Fluzone) ages 6mo and older (Afluria) 3 years and older 08/07/2012,09/30/2010 Pneumococcal polysaccharide 23 valent (Pneumovax 23) 2yo and older 09/30/2010 Td Tetanus diptheria (Tdvax) 7yo and older 10/25 Surgical History Surgery Date Site/Laterality Comments OTHER SURGICAL HISTORY PROCEDURE: CT AMP F/TH 09/30 JT/PHALANX W/NEURECT W/DIR CLSR; COMMENT: traumatic amputation distal left 4 fingers Medical History Medical History Date Comments Unspecified glaucoma(365.9) 10/11/2006 DX:U nspecified glaucoma(365.9) Old MA (myocardial infarction) 08/09/2011 D X:Old [place] (myocardial infarction) Family History Medical History Relation Name Comments Other: unknown cause Father ? stroke Other: alive and well Mother Relation Name Status Comments Father Mother Social History Tobacco Use Types Packs/Day Years Used Date Smoking Tobacco: Former Cigarettes Smokeless Tobacco: Never Alcohol Use Standard Drinks/Week Comments Not Asked 0 (1 standard drink = 0.6 oz pur e alcohol) Sex and Gender Information Value Date Recorded Sex Assigned at Not on file Gender Identity Not on file Sexual Orientation Not on file Job Start Date Occupation Industry Not on file Not on file Not on file Obstetrics History Last Filed Vital Signs Vital Sign Reading Time Taken Comments Blood Pressure - - Pulse - - Temperature - - Respiratory Rate - - Oxygen Saturation - - Inhaled Oxygen Concentration - - Weight 71.2 kg (157 lb) 09/20/2024 10:11 AM EST Height 160 cm (5' 3 ) 06/22/2024 1:43 PM EDT Body Mass Index 27.81 06/22/2024 1:43 PM EDT Plan of Treatment Upcoming Encounters Date Type Department Care Team (Late st Contact Info) Description 11/22/2024 8:30 AM EST Office Visit Orthopedic Surgery - [place] 250 [address] [facility] [address] [place] [phone] Francois Reagan DPM [address] [address] Health Maintenance Due Date Last Done Comments RSV Immunization Patients 60+ Years Old (1 - 1-dose 75+ series) 2016 Pneumococcal Vaccine: 65+ Years (2 of 2 - PCV) 10/11/2021 10/11/2020, 09/21/2015, 09/30/2010 DTaP,Tdap,and Td Vaccines (2 - Td or Tdap) 10/25/2021 10/25/2011 Zoster Vaccines (2 of 2) 02/19/2023 12/25/2022 COVID-19 Vaccine (4 - season) 2024 10/23/2021, 07/16/2021, 04/09/2021 Influenza Vaccine (#1) 2024 , 09/21/2015, 08/07/2012, Additional history exists Cholesterol Screening (Lipid Panel) 07/23/2024 03/18/2008 Depression Screening 07/23/2024 Falls Risk Assessment 07/23/2024 Medicare Annual Wellness Visit 07/23/2024 Social Influencers of Health Screening 07/23/2024 HIB Vaccines Aged Out No longer eligi ble based on patient's age to complete this topic HPV Vaccines Aged Out No longer eligi ble based on patient's age to complete this topic Hepatitis A Vaccines Aged Out No long er eligible based on patient's age to complete this topic Hepatitis B Vaccines Aged Out No long er eligible based on patient's age to complete this topic IPV Vaccines Aged Out No longer eligi ble based on patient's age to complete this topic MMR Vaccines Aged Out No longer eligi ble based on patient's age to complete this topic Meningococcal ACWY Vaccine Aged Out N o longer eligible based on patient's age to complete this topic RSV Immunization Patients Under 20 months Aged Out No longer eligible based on patient's age to complete this topic Varicella Vaccines Aged Out No longer eligible based on patient's age to complete this topic Procedures Procedure Name Priority Date/Time Associated Diagnosis Comments LIPID PANEL Routine 03/18/2008 from Last 3 Months or Most Recently Relevant to Health Maintenance Results * (ABNORMAL) Lipid panel (03/18/2008) LDL/HDL Ratio 3 0 - 4 Triglycerides 80 0 - 150 mg/dL Cholesterol 209(A) 0 - 200 mg/dL HDL 79 40 mg/dL LDL Cholesterol 114(A) 0 - 100 mg/dL Blood Venous blood specimen / Unknown Historical Provider LAB BLOOD ORDERAB LES from Last 3 Months or Most Recently Relevant to Health Maintenance Care Teams Rabbit Fancier Relationship Specialty Start Date End Date Krystyna Self MD [address] [place] [address] Dr Rai [place] [phone] PCP - General 06/16/24
--- OUTSIDE RECORDS SUMMARY | 2024-11-04 15:12 | XMS_ITS | Clinical Summary ---
Author Organization [facility] Address [address] [place] [address] Phone Care Team Providers Care Special Event Assistant Name Role Phone Tony Alvarez MD Primary Care Provider [phone] Allergies No known active allergies Medications acetaminophen (TYLENOL) 325 MG tablet acetaminophen 325 mg tablet 650 mg PO administered on scene. Time administered: Active apixaban (ELIQUIS) 5 MG tablet Eliquis 5 mg tablet Active atorvastatin (LIPITOR) 10 MG tablet atorvastatin 10 mg tablet TAKE 1 TABLET BY MOUTH EVERY DAY Active metoprolol succinate XL (TOPROL-XL) 100 MG 24 hr tablet 2 Active digoxin (LANOXIN) 125 MCG tablet digoxin 125 mcg (0.125 mg) tablet TAKE 1 TABLET BY MOUTH EVERY 48 HOURS FOR 30 DAYS Active Ascorbic Acid (vitamin C) 100 MG tablet Take 100 mg by mouth 1 (one) time each day Active Active Problems Problem Noted Date Diagnosed Date Stage 3b chronic kidney disease 11/28/2022 Renal osteodystrophy 11/28/2022 Chronic kidney disease due to benign hypertensio n 11/28/2022 Social History Tobacco Use Types Packs/Day Years Used Date Smoking Tobacco: Former Cigarettes Smokeless Tobacco: Never Tobacco Cessation:Counseling Given: Not Answered Alcohol Use Standard Drinks/Week Comments Yes 0 (1 standard drink = 0.6 oz pur e alcohol) Sex and Gender Information Value Date Recorded Sex Assigned at Not on file Legal Sex Male 9:08 AM EDT Gender Identity Not on file Sexual Orientation Not on file Last Filed Vital Signs Vital Sign Reading Time Taken Comments Blood Pressure 127/70 02/26/2024 10:14 AM EDT Pulse 74 02/26/2024 10:14 AM EDT Temperature - - Respiratory Rate - - Oxygen Saturation 97% 02/26/2024 10:14 AM EDT Inhaled Oxygen Concentration - - Weight 75.6 kg (166 lb 9.6 oz) 02/26/2024 10:14 AM EDT Height - - Body Mass Index - - Plan of Treatment Upcoming Encounters Date Type Department Care Team (Late st Contact Info) Description 12/20/2024 1:15 PM EDT Office Visit [facility] [address] [place] [address] Tony Alvarez MD [address] [facility] [address] [place] [phone] Health Maintenance Due Date Last Done Comments Pneumococcal Vaccine: 65+ Ye ars (2 of 2 - PCV) 09/30/2011 09/30/2010 Influenza Vaccine (#1) 2024 Hepatitis B Vaccine Aged Out No longe r eligible based on patient's age to complete this topic Insurance [facility] Care Teams Special Event Assistant Relationship Specialty Start Date End Date Tony Alvarez MD PCP - General Nephrology 06/02/23
--- NOTE | 2024-11-04 15:44 | ED_ITS ---
HPI - General Adult General Chief complaint: Fall Stated complaint: FALL,+HS,?LOC,+THIN,+COREY,HX DEMENTIA Time Seen by Provider: 11/04/24 15:42 Source: patient Mode of arrival: ambulatory Limitations: no limitations History of Present Illness ED Provider: Joe Flores HPI narrative: 84 yold male presents with pmh of afib, hyperlipidemia, dementia, atrial flutter, osteoarthritis presents to the ED for fall. Paient had unwitnessed fall today while he was in the room by himself. patietn states he fell out of bed. Related Data Home Medications ?Medication ?Instructions ?Recorded ?Confirmed rivaroxaban 15 mg tablet (Xarelto) 15 mg PO QPM 11/04/24 11/04/24 Previous Rx's ?Medication ?Instructions ?Recorded atorvastatin 10 mg tablet 10 mg PO DAILY #30 tabs 06/28/24 rivaroxaban 15 mg tablet (Xarelto) 15 mg PO DAILY #30 tabs 06/28/24 metoprolol tartrate 50 mg tablet 50 mg PO BID #180 tabs 08/03/24 Allergies Allergy/AdvReac Type Severity Reaction Status Date / Time avocado [AVOCADO] Allergy Severe DIFFICULTY Verified 11/04/24 14:54 BREATHING Review of Systems 2 Review of Systems: fall Yes all other systems are reviewed and are negative [facility] Past Medical History Medical History Afib Amputation of left index finger Hyperlipidemia Hypertension Family History Family History Mother Hypertension Father Heart disease Social History Social History Household Members: Spouse and Family Housing: House Alcohol intake: current Alcohol intake frequency: 3 or more drinks per day Alcohol type: beer and hard liquor Comment: across from RN station Patient Tobacco Use Status: Never used Tobacco service: No Current occupational status: retired Physical Exam ED Vital Signs: Vital Signs - 24 hr 11/04/24 14:52 11/04/24 16:52 11/04/24 18:06 Temperature 101 F H 98.9 F 98.9 F Pulse Rate 100 95 Respiratory Rate 18 16 Blood Pressure 154/96 H 147/87 H Pulse Oximetry 97 100 Oxygen Delivery Method Room Air Room Air 11/04/24 19:09 11/04/24 21:50 11/04/24 21:57 Temperature 99.2 F 98.1 F Pulse Rate 86 Respiratory Rate 93 H 18 18 Blood Pressure 141/88 H 138/82 Pulse Oximetry 95 98 Oxygen Delivery Method Room Air Room Air 11/05/24 00:57 11/05/24 02:20 11/05/24 06:20 Temperature 98.4 F 101.7 F H Pulse Rate 91 87 Respiratory Rate 16 18 18 Blood Pressure 138/93 H 151/96 H Pulse Oximetry 98 95 Oxygen Delivery Method Room Air Room Air 11/05/24 10:42 11/05/24 10:57 11/05/24 11:01 Temperature 98.6 F Pulse Rate 87 85 85 Respiratory Rate 16 Blood Pressure 151/96 H 139/84 139/84 Pulse Oximetry 95 97 Oxygen Delivery Method Room Air BMI result Body Mass Index 21.4 Const General: cooperative, healthy appearing, comfortable, no acute distress, well developed, alert, awake and Physically active Orientation/consciousness: patient oriented x3 [facility] Head: Yes normal to inspection, Yes No palpable skull fracture present, Yes normocephalic and Yes atraumatic Eyes General: appearance normal, both eyes and all related structures Neck Neck: Yes normal visual inspection, Yes full ROM, Yes no lymphadenopathy, Yes no meningeal signs, Yes trachea midline, Yes supple, No anterior neck swelling and No tender Chest Chest palpation & inspection: normal inspection of the chest and normal palpation of entire chest wall Resp Effort & Inspection: normal respiratory effort and able to speak in complete sentences Auscultation: clear to auscultation bilaterally Cardio Jugular venous distension: no JVD Heart sounds: S1 normal heart sound present and S2 normal heart sound present GI Inspection: Yes normal to inspection Palpation (GI): Soft to palpation, not firm, nontender, no guarding and not rigid General: Yes no CVA tenderness Back/Spine/Pelvis Back: no CVA tenderness and No back tenderness Skin General skin exam: no rashes or lesions noted, elasticity normal and turgor normal Neuro General: patient oriented x3, gait normal, tone normal, moves all extremities, Normal light touch and pain sensation, no meningeal signs, no focal motor deficits, CN's II-XI intact bilaterally and normal sensation to monofilament Extrem General: Yes normal to inspection, Yes full ROM and Yes capillary refill normal Psych Appearance: grossly normal, well kempt and not disheveled Course Reevaluation(s) Reevaluation #1: Per Lesly from , patient will be discharged home with VNA services for alf and physical therapy, family will transport patient home. Observation care revealed that patient does not meet medical necessity for hospitalization. Final disposition discussed with patient. The patient completed observation care at 13:10 on 11/05/24. Time: 13:10 Medications Administered Discontinued Medications Generic Name Dose Route Start Last Admin Trade Name Freq PRN Reason Stop Dose Admin Acetaminophen 975 mg 11/04/24 16:45 11/04/24 16:59 Acetaminophen 325 Mg Tablet PO 11/04/24 16:46 975 mg ONCE ONE Administration Sodium Chloride 1,000 mls @ 999 mls/hr 11/04/24 16:20 11/04/24 18:06 Ns IV 11/04/24 17:20 Infused .Q1H1M STA Infusion Acetaminophen 1,000 mg in 100 mls @ 400 mls/hr 11/05/24 06:24 11/05/24 07:00 Ofirmev IV 11/05/24 06:38 Infused ONCE ONE Infusion Melatonin 6 mg 11/04/24 20:23 11/04/24 20:55 Melatonin 3 Mg Tablet PO 11/04/24 20:24 6 mg ONCE ONE Administration Metoprolol Tartrate 50 mg 11/04/24 22:00 11/05/24 10:57 Metoprolol Tartrate 50 Mg Tablet PO 50 mg BID LEONEL Administration Protocol Oseltamivir Phosphate 75 mg 11/04/24 16:22 11/04/24 16:59 Oseltamivir Phosphate 75 Mg Capsule PO 11/04/24 16:23 75 mg ONCE ONE Administration Oseltamivir Phosphate 30 mg 11/05/24 09:00 11/05/24 10:57 Oseltamivir Phosphate 30 Mg Capsule PO 30 mg BID LEONEL Administration Rivaroxaban 15 mg 11/04/24 22:00 11/05/24 00:42 Rivaroxaban 15 Mg Tablet PO 15 mg DAILY@1700 LEONEL Administration Medical Decision Making Medical Decision Making MDM Narrative: 84-year-old male presents to ED for or witnessed fall. Patient has history of dementia. Patient fell in his room. As per family patient has been coughing with malaise the past couple of days. They states patient has felt warm the past couple days but no one ever ventricular temperature to check if you have a fever. Patient admits to URI symptoms. Patient patient will be sent for CT scans. 6:07pm: Patient is positive for the flu. Patient given Tamiflu more bag of fluids. Patient head CT, cervical spine CT abdominal pelvic CT came back negative for any acute life-threatening etiology. Chest CT scan shows left rib acute fracture and right lower ribs subacute fractures. As per daughter patient also fell last week and fractures most likely occurred last week. Daughter states father has no home services due to his health insurance status of not having [employer] but [employer] Medicare. Incentive spirometry ordered. No need for trauma transfer. Once against subacute fractures occurred last week. Patient has 1 acute rib fracture today as per chest CT. Case discussed with case manager specialist Laura recommends patient get PT evaluation for possible placement. EKG ordered and shows Afib RVR. Patient's heart rate never more than 100 on a monitor and patient is on blood thinner. Patient is rate controlled. She is comfortable in bed not in distress. No need for meds. 9:40pm: 1st troponin negative. Second troponin pending. Patient is awaiting PT case manager specialist follow-up. Differential Diagnosis Differential Diagnoses: The differential diagnosis associated with the presentation includes (Rib fracture, flu, cervical spine fracture) Admission/Observation Consideration of admission/observation: Escalation of care including admission/observation considered Consult Healthcare Provider Management of the patient was discussed with: Center Customer Service Associate (market development manager Laura) Lab Data MDM Lab Attestation statement: I reviewed the patient's lab results. 11/04/24 15:58 11/04/24 15:18 Labs: Lab Results 11/04/24 11/04/24 11/04/24 Range/Units 15:18 15:58 17:38 WBC 5.5 (4.8-10.8) X10*3/uL RBC 3.61 L (4.60-5.80) X10*6/uL Hgb 13.2 L (14.0-18.0) g/dl Hct 37.6 L (42.0-52.0) % MCV 104.2 H (80.0-98.0) fL MCH 36.6 H (27.0-33.0) pg MCHC 35.1 (31.0-36.0) g/dl RDW 13.2 (11.0-16.0) % Plt Count 106 L D (160-400) X10*3/uL MPV 9.6 (9.4-12.4) fL Immature Gran % (Auto) 0.2 (0.0-0.4) % Neut % (Auto) 73.2 H (45-73) % Lymph % (Auto) 11.8 L (20-40) % [place] % (Auto) 11.8 H (2-11) % Eos % (Auto) 2.5 (0-4) % Baso % (Auto) 0.5 (0-2) % Lymph # (Auto) 0.7 L (1.2-4.9) X10*3/uL [place] # (Auto) 0.7 (0.1-1.2) X10*3/uL Eos # (Auto) 0.1 (0.0-0.4) X10*3/uL Baso # (Auto) 0.0 (0.0-0.2) X10*3/uL Abs Immat Gran (auto) 0.01 (0.00-0.03) X10*3/uL Absolute Neuts (auto) 4.0 (2.0-8.3) x10*3/uL Absolute Nucleated RBC 0.000 (0.0-0.012) X10*3/uL Nucleated RBC % (auto) 0.0 (0.0-0.2) /100WBC PT 17.5 H (10.9-12.4) SEC INR 1.5 H (0.9-1.1) Sodium 132 L (135-145) mmol/L Potassium 4.0 (3.3-5.1) mmol/L Chloride 102 (96-108) mmol/L Carbon Dioxide 18 L (22-29) mmol/L Anion Gap 16 (12-20) BUN 12 (9-16) mg/dL Creatinine 1.25 (0.5-1.4) mg/dL Estim Creat Clear Calc 45.2 Estimated GFR 55 Random Glucose 105 (60-115) mg/dL Calcium 8.7 D (8.4-10.2) mg/dL Total Bilirubin 1.1 H (0.0-1.0) mg/dL AST 72 H (5-37) U/L ALT 24 (0-40) U/L Alkaline Phosphatase 99 (39-117) U/L Troponin I High Sens 19.9 (<3.5-35.0) ng/L Total Protein 7.8 (6.5-8.0) g/dL Albumin 3.7 (3.5-5.0) g/dL Urine Color Urine Appearance Urine pH (5.0-9.0) Ur Specific [place] (1.005-1.025) Urine Protein (Neg-Trace) mg/dL Urine Glucose (UA) (Negative) mg/dL Urine Ketones (Negative) mg/dL Urine Blood (Negative) Urine Nitrite (Negative) Ur Leukocyte Esterase (Negative) Urine RBC (0-2) /HPF Urine WBC (0-5) /HPF Ur Squamous Epith Cells (0-2) /HPF Urine Bacteria (None Seen) Hyaline Casts (0-2) /LPF Influenza Type A (PCR) POSITIVE A (Negative) Influenza Type B (PCR) NEGATIVE (Negative) RSV RNA Qual (PCR) NEGATIVE (Negative) SARS-CoV-2 RNA (RT-PCR) NEGATIVE (Negative) 11/04/24 11/04/24 Range/Units 18:00 20:44 WBC (4.8-10.8) X10*3/uL RBC (4.60-5.80) X10*6/uL Hgb (14.0-18.0) g/dl Hct (42.0-52.0) % MCV (80.0-98.0) fL MCH (27.0-33.0) pg MCHC (31.0-36.0) g/dl RDW (11.0-16.0) % Plt Count (160-400) X10*3/uL MPV (9.4-12.4) fL Immature Gran % (Auto) (0.0-0.4) % Neut % (Auto) (45-73) % Lymph % (Auto) (20-40) % [place] % (Auto) (2-11) % Eos % (Auto) (0-4) % Baso % (Auto) (0-2) % Lymph # (Auto) (1.2-4.9) X10*3/uL [place] # (Auto) (0.1-1.2) X10*3/uL Eos # (Auto) (0.0-0.4) X10*3/uL Baso # (Auto) (0.0-0.2) X10*3/uL Abs Immat Gran (auto) (0.00-0.03) X10*3/uL Absolute Neuts (auto) (2.0-8.3) x10*3/uL Absolute Nucleated RBC (0.0-0.012) X10*3/uL Nucleated RBC % (auto) (0.0-0.2) /100WBC PT (10.9-12.4) SEC INR (0.9-1.1) Sodium (135-145) mmol/L Potassium (3.3-5.1) mmol/L Chloride (96-108) mmol/L Carbon Dioxide (22-29) mmol/L Anion Gap (12-20) BUN (9-16) mg/dL Creatinine (0.5-1.4) mg/dL Estim Creat Clear Calc Estimated GFR Random Glucose (60-115) mg/dL Calcium (8.4-10.2) mg/dL Total Bilirubin (0.0-1.0) mg/dL AST (5-37) U/L ALT (0-40) U/L Alkaline Phosphatase (39-117) U/L Troponin I High Sens 27.9 (<3.5-35.0) ng/L Total Protein (6.5-8.0) g/dL Albumin (3.5-5.0) g/dL Urine Color Dark Yellow Urine Appearance Clear Urine pH 6.0 (5.0-9.0) Ur Specific [place] 1.020 (1.005-1.025) Urine Protein 100 (2+) H (Neg-Trace) mg/dL Urine Glucose (UA) Negative (Negative) mg/dL Urine Ketones Trace (Negative) mg/dL Urine Blood Small (1+) H (Negative) Urine Nitrite Negative (Negative) Ur Leukocyte Esterase Negative (Negative) Urine RBC 0-2 (0-2) /HPF Urine WBC 0-5 (0-5) /HPF Ur Squamous Epith Cells 0-2 (0-2) /HPF Urine Bacteria None Seen (None Seen) Hyaline Casts 3-5 (0-2) /LPF Influenza Type A (PCR) (Negative) Influenza Type B (PCR) (Negative) RSV RNA Qual (PCR) (Negative) SARS-CoV-2 RNA (RT-PCR) (Negative) Independent Interpretation I performed an independent interpretation of an: EKG (afib RVT HR 101) and CT Scan Radiology Impression Discussion of test interpretation with radiology: I have reviewed the radiologist's reading. Discharge Plan Discharge Clinical Impression: Head injury, Fall Patient Disposition: Home, Self-Care Instructions: Fall Prevention for Older Adults (ED), Head Injury (ED) Additional Instructions: You are being discharged home with VNA services for alf and physical therapy. Please follow-up with your primary care provider. Return to the emergency department with new or worsening symptoms. Prescriptions: No Action metoprolol tartrate 50 mg tablet 50 mg PO BID Qty: 180 3RF Xarelto 15 mg tablet 15 mg PO QPM Xarelto 15 mg tablet 15 mg PO DAILY Qty: 30 5RF Rx Instructions: must administer with evening meal atorvastatin 10 mg tablet 10 mg PO DAILY Qty: 30 5RF Referrals: Rai [facility] [Outside] (Agency will call to arrange visit. Should not be before Friday. ) Interventions: ED Discharge Assessment Last Done: 11/05/24 13:56 Discharge Date/Time: 11/05/24 13:57 Print Language: Ghanaian
[2024-11-04 15:45] LABS: INTERNATIONAL NORM RATIO 1.5 (0.9-1.1); Prothrombin Time 17.5 SEC (10.9-12.4)
[2024-11-04 15:55] LABS: Alanine Aminotransferase 24 U/L (0-40); Albumin Level 3.7 g/dL (3.5-5.0); Alkaline Phosphatase 99 U/L (39-117); Anion Gap 16 (12-20); Aspartate Amino Transferase 72 U/L (5-37); Bilirubin Total 1.1 mg/dL (0.0-1.0); Blood Urea Nitrogen 12 mg/dL (9-16); Calcium 8.7 mg/dL (8.4-10.2); Carbon Dioxide 18 mmol/L (22-29); Chloride 102 mmol/L (96-108); Creatinine Clr Calc Pharmacy 45.2; Estimated Glomerular Filt Rate 55; Glucose Random 105 mg/dL (60-115); Sodium 132 mmol/L (135-145); Total Protein 7.8 g/dL (6.5-8.0)
--- NOTE | 2024-11-04 16:00 | PC.NURSE ---
Pt BIBA from home for fall, unwitnessed in bedroom. saw pt in bed approx 5 mins earlier then found him on floor next to bed. Unknown LOC or Head hit, pt unreliable, confused at baseline due to dementia. Pt is on blood thinners. Denying pain. Daughter does report pt has been sick with cough, fevers and general malaise for past few days. Alert and confused, breathing even and unlabored, coughing.
[2024-11-04 16:03] LABS: Basophils Percent Auto 0.5 % (0-2); Eosinophils Absolute Auto 0.1 X10*3/uL (0.0-0.4); Eosinophils Percent Auto 2.5 % (0-4); Hematocrit 37.6 % (42.0-52.0); Hemoglobin 13.2 g/dl (14.0-18.0); Imm Gran Abs Auto 0.01 X10*3/uL (0.00-0.03); Imm Gran Pct Auto 0.2 % (0.0-0.4); Lymphocytes Absolute Auto 0.7 X10*3/uL (1.2-4.9); Lymphocytes Percent Auto 11.8 % (20-40); Mean Corpuscular HGB Conc 35.1 g/dl (31.0-36.0); Mean Corpuscular Hemoglobin 36.6 pg (27.0-33.0); Mean Corpuscular Volume 104.2 fL (80.0-98.0); Mean Platelet Volume 9.6 fL (9.4-12.4); Monocytes Absolute Auto 0.7 X10*3/uL (0.1-1.2); Monocytes Percent Auto 11.8 % (2-11); Neutrophils Percent Auto 73.2 % (45-73); Platelet Count 106 X10*3/uL (160-400); Red Blood Count 3.61 X10*6/uL (4.60-5.80); Red Cell Distribution Width 13.2 % (11.0-16.0); White Blood Count 5.5 X10*3/uL (4.8-10.8)
[2024-11-04 16:12] LABS: Influenza A PCR POSITIVE (Negative); Influenza B PCR NEGATIVE (Negative); Resp Syncy Virus RNA Qual PCR NEGATIVE (Negative); SARS COV2 PCR INHOUSE NEGATIVE (Negative)
[2024-11-04] MEDS: Acetaminophen 325 MG TABLET 975 MG PO (16:59)
[2024-11-04] MEDS: Oseltamivir Phosphate 75 MG CAPSULE PO (16:59)
[2024-11-04] MEDS: 0.9 % Sodium Chloride 1,000 ML 999 ML IV (17:01)
--- NOTE | 2024-11-04 17:09 | ECG_ITS ---
Test Reason : FALL Blood Pressure : */* mmHG Vent. Rate : 101 BPM Atrial Rate : * BPM P-R Int : * ms QRS Dur : 76 ms QT Int : 322 ms P-R-T Axes : * -11 -11 degrees QTcB Int : 417 ms Atrial fibrillation with rapid ventricular response Abnormal ECG When compared with ECG of 05-Nov-2020 03:05, Atrial fibrillation has replaced Sinus rhythm Vent. rate has increased by 36 bpm Referred By: Joe Flores Electronically Signed By: Onofre Gomez
[2024-11-04 18:08] LABS: Appearance Urine Clear; Color Urine Dark Yellow; Glucose Urine UA Negative (Negative); Leukocyte Esterase Urine Negative (Negative); Nitrite Urine Negative (Negative); Urine Blood Small (1+) (Negative); Urine Ketones Trace mg/dL (Negative); Urine Protein 100 (2+) mg/dL (Neg-Trace)
--- NOTE | 2024-11-04 18:08 | PC.NURSE ---
Plan for PT CM eval per provider.
--- NOTE | 2024-11-04 18:09 | PC.NURSE ---
Pt swallows pills whole one at a time. Uses urinal at bedside or commode with assistance. IV wrapped due to pt pulling at wires and IV
[2024-11-04] MEDS: Melatonin 3 MG TABLET 6 MG PO (20:55)
[2024-11-04 20:59] LABS: Troponin-I High Sensitivity 19.9 ng/L (<3.5-35.0)
--- NOTE | 2024-11-04 21:05 | MHC.CM.ED ---
Addendum entered by Rachel Mora 11/04/24 21:15: No HCP on file. Original Note: CM met with patient and daughter at the request of Joe GARCIA. Pt has dementia and has a poor memory. Most of CM interview was with daughter. Pt lives with his in a duplex on the first floor. His daughter Denia Dale lives on the first floor ([phone]). Pt has FLU A. He was started on Tamiful 11/04. He uses no DME or services. He is know to wander and has left the house. He fell last week and today. He has 2 subacute fx 7-8th right ribs and an acute 6th right rib fracture. About 4 months ago he left his home and was found 4 hours later. Daughter has put locks on the doors, the fenced in yard and has cameras in the home. They are not interested in LTC at this time. Daughter reports he is unsteady on his feet. PT is pending. [facility] is the families first choice. CM will refer to [facility] with daughter Denia as contact. Will place local referrals pending PT evaluation. Family is interested in home PT if recommended also. CM will follow for safe discharge plan.
[2024-11-04 21:37] LABS: UMIC TRIGGER UACC YES
--- NOTE | 2024-11-04 21:54 | PC.NURSE ---
med rec completed, spoke with daughter Denia
[2024-11-04 22:01] LABS: Bacteria Urine None Seen (None Seen); RBC Urine 0-2 /HPF (0-2); Squamous Epithelial Cell Urine 0-2 /HPF (0-2); WBC Urine 0-5 /HPF (0-5)
[2024-11-04 22:29] LABS: Troponin-I High Sensitivity 27.9 ng/L (<3.5-35.0)
[2024-11-05] VITALS (7 sets, daily range): BP systolic 134–151; BP diastolic 83–96; PULSE 80–91; RESP 16–20; TEMP 36.9–38.7; O2SAT 95–100
[2024-11-05] MEDS: Rivaroxaban 15 MG TABLET PO (00:42)
[2024-11-05] MEDS: Metoprolol Tartrate 50 MG TABLET PO ×2 (00:42→10:57)
--- NOTE | 2024-11-05 00:51 | PC.NURSE ---
this RN attempted to given pt his 2199 medications. pt kept spitting them out. tried with water and pudding. metoprolol successfully given at 004, xalrelto was found spit back into bedside urinal
--- NOTE | 2024-11-05 02:21 | MHC.EDTECH ---
Assisted pt to bathroom. Offered urinal but pt insisted to walk to bathroom. Pt walks with slow steady gait with assist. Pt now back in bed and vitals updated. RN aware
--- NOTE | 2024-11-05 06:24 | PC.NURSE ---
temp 101.7 pt spit out pills last night, requested IV Tylenol for fever.
[2024-11-05] MEDS: Acetaminophen 1,000 MG/100 ML PIGGYBACK 400 MG IV (06:30)
--- NOTE | 2024-11-05 07:32 | PC.NURSE ---
Camera placed in pt.'s room for repetitive wandering and difficulty redirecting
--- NOTE | 2024-11-05 10:16 | PC.NURSE ---
Pt.'s daughter at bedside. Daughter expresses frustration, stating that if PT eval. isn't completed soon, she is taking her dad home because she is concerned about his Flu getting worse if he remains in the hospital. PT notified and states that they will be down to assess pt. momentarily. Pt.'s daughter aware and agreeable to waiting for PT.
[2024-11-05] MEDS: Oseltamivir Phosphate 30 MG CAPSULE PO (10:57)
--- NOTE | 2024-11-05 12:44 | MHC.CM.ED ---
Patient remains in ER. +Flu A. Physical therapy eval completed. Short term rehab is recommended. Met with patient and daughter, Denia. [facility] but is unable to offer a bed. [facility] are able to offer a bed. Denia will speak to family and notify CM if they will accept STR bed or take patient home. Continue to monitor for d/c needs.
--- NOTE | 2024-11-05 13:18 | MHC.CM.ED ---
Received telephone call from patient's son, Denia, in regards to discharge planning. After speak with patient's family, they have decided to take patient home. Family is going to assist in caring for patient. Patient's is already active with [facility]. Denia asked referral be made to [facility] for her father as well. Referral made via [facility]. Family will transport patient home. Shefali HAWKINS and Sherry KAYE aware. Continue to monitor for d/c needs.
== END 2024-11-05 13:57 | disposition home or self-care (01) ==
PROVIDERS: Physician Assistant; Emergency Provider Emergency Medicine; PCP Internal Medicine
DX: S09.90XA Unspecified injury of head, initial encounter (principal); S29.9XXA Unspecified injury of thorax, initial encounter; R26.81 Unsteadiness on feet; F03.90 Unspecified dementia, unspecified severity, without behavioral disturbance, psychotic disturbance, mood disturbance, and anxiety; R10.2 Pelvic and perineal pain; R51.9 Headache, unspecified; M54.2 Cervicalgia; R05.9 Cough, unspecified; R11.0 Nausea; I48.20 Chronic atrial fibrillation, unspecified; W06.XXXA Fall from bed, initial encounter; Y93.9 Activity, unspecified; Y92.89 Other specified places as the place of occurrence of the external cause; Y99.8 Other external cause status; Z79.01 Long term (current) use of anticoagulants; Z03.818 Encounter for observation for suspected exposure to other biological agents ruled out; Z79.899 Other long term (current) drug therapy
CPT/HCPCS: 0241U; 36415; 70450; 71250; 72125; 74176; 80053; 81001; 81003; 84484; 85025; 85610; 93005; 96361; 96365; 97162; 99284; 99285; J0131

== ENCOUNTER → 2024-11-04 15:45 | Outpatient (BNV) | payer MEDICARE, SELFPAY | PROVIDERS: Emergency Provider Emergency Medicine; PCP Internal Medicine; Visit Provider Radiology Diagnostic Radiology | DX: K57.30 Diverticulosis of large intestine without perforation or abscess without bleeding (principal); M26.641 Arthritis of right temporomandibular joint; M40.50 Lordosis, unspecified, site unspecified; S22.41XA Multiple fractures of ribs, right side, initial encounter for closed fracture | CPT/HCPCS: 70450; 71250; 72125; 74176 ==

== ENCOUNTER → 2024-11-04 17:09 | Outpatient (BNV) | payer MEDICARE, SELFPAY | PROVIDERS: Emergency Provider Emergency Medicine; PCP Internal Medicine; Visit Provider Internal Medicine Cardiovascular Disease | DX: I49.9 Cardiac arrhythmia, unspecified (principal) | CPT/HCPCS: 93010 ==

== ENCOUNTER 2025-04-05 16:46 | Outpatient (REF) | payer MEDICARE, SELFPAY ==
--- OUTSIDE RECORDS SUMMARY | 2025-04-05 16:49 | XMS_ITS | Data Portability ---
Author Organization [place] [facility] Address [address] [place] [address] Care Team Providers Care Dialysis Nurse Name Role Phone KAIN ESPINOZA Primary Care Provider [facility] OTHER Assessment Encounter Date Assessment [...] agreebale Time On Scene with Patient: 00:37:53 Not available 11/24/2020 20:23:35 11/29/2020 11/29/2020 Overview/History [...] not limited to:Specimen recollection. Work up/Results: Plan/Discussion:Matthew kaveh was advised to continue self-quarantine until the [...] Modified Time Details Appointments None recorded. Lab SARS CoV 2 RNA (COVID-19), QL, ultrasound technol-PCR, respiratory specimen 2020 [email or web address] [facility] (Centralized Electronic Ordering - All Locations), Patient Can Go To The Location Of Their Choice, [id number] 10:04:34 CBC w/ auto diff 2020 RYAN [facility] (Centralized Electronic Ordering - All Locations), Patient Can Go To The Location Of Their Choice, [id number] 02:56:35 rapid flu (A+B) 2020 [facility], [address], [place], [address], 19:19:09 BMP + ionized calcium, serum or plasma 2020 [facility], [address], [place], [address], 17:56:40 SARS CoV 2 RNA (COVID-19), QL, ultrasound technol-PCR, respiratory specimen 2020 [email or web address] [facility] (Centralized Electronic Ordering - All Locations), Patient Can Go To The Location Of Their Choice, 15:12:36 Referral None recorded. Procedures None recorded. Surgeries None recorded. Imaging XR, chest, 2 view 2020 [facility] ([facility] [address], [place], [address], 15:51:01 Medication Orders acetaminoph en 325 mg tablet 2020 [email or web address] Not available 20:16:16 Patient TargetsNo targets recorded. Patient InstructionsNo instructions recorded. Reason for Referral None Reported. Results Created Date Observation Date Name Description Value Unit Range Abnormal Flag Note LastModifiedBy Organization Detail LastModifiedTime 11/24/1911/25/2020 CBC w/ auto diff WBC 7.9 K/mm3 (4.0-1 1.0) Not Available [facility] (Centralized Electronic Ordering - All Locations) Patient Can Go To The Location Of Their Choice, 11/25/2020 02:56:34 11/24/1911/25/2020 CBC w/ auto diff RBC 3.77 M/mm3 (4.70- 6.10) low Not Available [facility] (Centralized Electronic Ordering - All Locations) Patient Can Go To The Location Of Their Choice, 11/25/2020 02:56:34 11/24/1911/25/2020 CBC w/ auto diff HGB 12.6 gm/dL (13.7- 17.1) low Not Available [facility] (Centralized Electronic Ordering - All Locations) Patient Can Go To The Location Of Their Choice, 11/25/2020 02:56:34 11/24/1911/25/2020 CBC w/ auto diff HCT 38.4 % (40.5- 50.0) low Not Available [facility] (Centralized Electronic Ordering - All Locations) Patient Can Go To The Location Of Their Choice, 11/25/2020 02:56:34 11/24/1911/25/2020 CBC w/ auto diff MCV 101.9 fL (80.0- 94.0) high Not Available [facility] (Centralized Electronic Ordering - All Locations) Patient Can Go To The Location Of Their Choice, 11/25/2020 02:56:34 11/24/1911/25/2020 CBC w/ auto diff MCH 33.4 pg (27.0- 34.0) Not Available [facility] (Centralized Electronic Ordering - All Locations) Patient Can Go To The Location Of Their Choice, 11/25/2020 02:56:34 11/24/1911/25/2020 CBC w/ auto diff MCHC 32.8 g/dL (33.0- 37.0) low Not Available [facility] (Centralized Electronic Ordering - All Locations) Patient Can Go To The Location Of Their Choice, 11/25/2020 02:56:34 11/24/1911/25/2020 CBC w/ auto diff plt 223 K/mm3 (150-4 60) Not Available [facility] (Centralized Electronic Ordering - All Locations) Patient Can Go To The Location Of Their Choice, 11/25/2020 02:56:34 11/24/1911/25/2020 CBC w/ auto diff RDW-SD 46.7 fL (<47.0 ) Not Available [facility] (Centralized Electronic Ordering - All Locations) Patient Can Go To The Location Of Their Choice, 11/25/2020 02:56:34 11/24/1911/25/2020 CBC w/ auto diff MPV 10.8 fL (9.4-1 2.4) Not Available [facility] (Centralized Electronic Ordering - All Locations) Patient Can Go To The Location Of Their Choice, 11/25/2020 02:56:34 11/24/1911/25/2020 CBC w/ auto diff automated NRBC 0.0 #/100 _WBC' s Not Available [facility] (Centralized Electronic Ordering - All Locations) Patient Can Go To The Location Of Their Choice, 11/25/2020 02:56:34 11/24/1911/25/2020 CBC w/ auto diff abs. NRBC 0.0 K/mm3 Not Available [facility] (Centralized Electronic Ordering - All Locations) Patient Can Go To The Location Of Their Choice, 11/25/2020 02:56:34 11/24/1911/25/2020 CBC w/ auto diff neut # 5.8 K/mm3 (1.3-7 .0) Not Available [facility] (Centralized Electronic Ordering - All Locations) Patient Can Go To The Location Of Their Choice, 11/25/2020 02:56:34 11/24/1911/25/2020 CBC w/ auto diff lymph # 1.3 K/mm3 (0.8-3 .1) Not Available [facility] (Centralized Electronic Ordering - All Locations) Patient Can Go To The Location Of Their Choice, 11/25/2020 02:56:34 11/24/1911/25/2020 CBC w/ auto diff mono# 0.7 K/mm3 (0.4-1 .3) Not Available [facility] (Centralized Electronic Ordering - All Locations) Patient Can Go To The Location Of Their Choice, 11/25/2020 02:56:34 11/24/1911/25/2020 CBC w/ auto diff eo # 0.1 K/mm3 (0.0-0 .4) Not Available [facility] (Centralized Electronic Ordering - All Locations) Patient Can Go To The Location Of Their Choice, 11/25/2020 02:56:34 11/24/1911/25/2020 CBC w/ auto diff baso # 0.0 K/mm3 (0.0-0 .1) Not Available [facility] (Centralized Electronic Ordering - All Locations) Patient Can Go To The Location Of Their Choice, 11/25/2020 02:56:34 11/24/1911/25/2020 CBC w/ auto diff abs. imm gran 0.0 K/mm3 Not Available [facility] (Centralized [facility] Ordering - All Locations) Patient Can Go To The Location Of Their Choice, 11/25/2020 02:56:34 11/24/1911/25/2020 CBC w/ auto diff neut 73.8 % (44-76 ) Not Available [facility] (Centralized Electronic Ordering - All Locations) Patient Can Go To The Location Of Their Choice, 11/25/2020 02:56:34 11/24/1911/25/2020 CBC w/ auto diff lymph 16.1 % (15-43 ) Not Available [facility] (Centralized Electronic Ordering - All Locations) Patient Can Go To The Location Of Their Choice, 11/25/2020 02:56:34 11/24/1911/25/2020 CBC w/ auto diff monocyte 8.2 % (4.5-1 0.5) Not Available [facility] (Centralized Electronic Ordering - All Locations) Patient Can Go To The Location Of Their Choice, 11/25/2020 02:56:34 11/24/1911/25/2020 CBC w/ auto diff eo 1.1 % (0-6) Not Available [facility] (Centralized Electronic Ordering - All Locations) Patient Can Go To The Location Of Their Choice, 11/25/2020 02:56:34 11/24/1911/25/2020 CBC w/ auto diff baso 0.4 % (0-2) Not Available [facility] (Centralized Electronic Ordering - All Locations) Patient Can Go To The Location Of Their Choice, 11/25/2020 02:56:34 11/24/1911/25/2020 CBC w/ auto diff imm gran 0.4 % Not Available [facility] (Centralized Electronic Ordering - All Locations) Patient Can Go To The Location Of Their Choice, 11/25/2020 02:56:34 11/24/1911/24/2020 rapid flu (A+B) Flu A negati ve Not Available [facility] [address] [place] [address] [place], [address], 11/24/2020 17:43:56 11/24/19 21 11/24/2020 rapid flu (A+B) Flu B negati ve Not Available [facility] [address] [place], [address], 11/24/2020 17:43:56 11/24/19 21 11/24/2020 rapid flu (A+B) Control Visual ized / Valid Not Available [facility] [address] [place], [address], 11/24/2020 17:43:56 11/24/19 21 11/24/2020 BMP + ioniz ed calci um, serum or plasm a glu 122 mg/dL 70-105 Not Available [facility] [address] [place], [address], 11/24/2020 17:56:40 11/24/19 21 11/24/2020 BMP + ioniz ed calci um, serum or plasm a BUN 14 mg/dL 8-26 Not Available [facility] [address] [place], [address], 11/24/2020 17:56:40 11/24/19 21 11/24/2020 BMP + ioniz ed calci um, serum or plasm a crea 1.3 mg/dL 0.6-1. 3 Not Available [facility] [address] [place], [address], 11/24/2020 17:56:40 11/24/19 21 11/24/2020 BMP + ioniz ed calci um, serum or plasm a Na 131 mmol/ L 138-14 6 Not Available [facility] [address] [place], [address], 11/24/2020 17:56:40 11/24/19 21 11/24/2020 BMP + ioniz ed calci um, serum or plasm a K 4.2 mmol/ L 3.5-4. 9 Not Available [address], [address], 11/24/2020 17:56:40 11/24/19 21 11/24/2020 BMP + ioniz ed calci um, serum or plasm a cL 99 mmol/ L 98-109 Not Available [address], [address], 11/24/2020 17:56:40 11/24/19 21 11/24/2020 BMP + ioniz ed calci um, serum or plasm a TCO2 22 mmol/ L 24-29 Not Available [address], [address], 11/24/2020 17:56:40 11/24/19 21 11/24/2020 BMP + ioniz ed calci um, serum or plasm a angap 15 mmol/ L 10-20 Not Available [address], [address], 11/24/2020 17:56:40 11/24/19 21 11/24/2020 BMP + ioniz ed calci um, serum or plasm a ica 1.15 mmol/ L 1.12-1 .32 Not Available [address], [address], 11/24/2020 17:56:40 11/24/19 21 11/24/2020 BMP + ioniz ed calci um, serum or plasm a HCT 39 %pcv 38-51 Not Available [address], [address], 11/24/2020 17:56:40 11/24/19 21 11/24/2020 BMP + ioniz ed calci um, serum or plasm a Hb 13.3 g/dL 12-17 Not Available [address], [address], 11/24/2020 17:56:40 11/30/19 21 11/30/2020 covid -19 (nove l coron aviru s) PCR covid-19 PCR result (neg) NEGAT OLEG 2019- novel Coron aviru s (2018nCo ) not detec bailey by RT-PC Zoë Note: If clini colleen suspi cion for COVID -19 is high, fifi nue to maint ain preca ution s and consi car repea t testi ng. Resul t repor bailey to the [facility]. All test resul ts must be corre lated with clini colleen findi ngs. This test has been autho rized by the FDA under an Emerg ency Use Autho rizat ion (EUA) for use by autho rized labor atori es. Testi ng perfo rmed on the [employer] er Aptim a assay utili zing trans cript ion-m ediat ed ampli ficat ion (TMA) . Not Available [facility] (Centralized Electronic Ordering - All Locations) Patient Can Go To The Location Of Their Choice, [id number] 11/30/2020 13:24:57 11/30/19 21 11/30/2020 covid -19 (nove l coron aviru s) PCR covid-19 PCR specimen source NASAL Not Available [facility] (Centralized Electronic Ordering - All Locations) Patient Can Go To The Location Of Their Choice, [id number] 11/30/2020 13:24:57 11/25/19 21 11/25/2020 XR, chest [...] Bower D.O. 021 3:38:1 2 PM EST. [email or web address] [facility] [address], [place], [place], [address], 11/30/2020 10:48:04 Result Notes Documentation Provider Name and Address Organization Details Recorded Time Xr, Chest, 2 View : XRAY CHEST 2 VIEW FINDINGS: The heart is normal in size and configuration. The mediastinum is normal without adenopathy. The lung weber are clear without mass, infiltrate, congestion, or effusion. Bony structures are unremarkable without acute fracture or destructive lesions. CONCLUSION: No acute cardiopulmonary disease seen. ELECTRONICALLY SIGNED BY JONAH CHIN D.O. 11/25/2020 3:38:12 PM EST. XRAY CHEST 2 VIEW Results: The heart is normal in size and configuration. The mediastinum is normal without adenopathy. The lung weber are clear without mass, infiltrate, congestion, or effusion. Bony structures are unremarkable without acute fracture or destructive lesions. Conclusion: No acute cardiopulmonary disease seen. Electronically signed by JONAH CHIN D.O. 11/25/2020 3:38:12 PM EST. HENOK COHEN NP [address], [place], [address], [place] [facility] 11/30/2020 10:48:04 Procedures Surgical History Date Name Laterality Status Provider Name and Address Organization Details Recorded Time procedure on knee completed MAT[place] MCPHERSON [address] [place], [address], [place] [facility] 11/24/2020 20:15:35 procedure on hand completed MATTHEW MCPHERSON [address] [place], [address], [place] [facility] 11/24/2020 20:15:44 Imaging Results None recorded. Procedure Notes None recorded. Medical Equipment None Reported. Allergies Allergen ID Allergen Name Allergen Category Reaction Reaction Severity Criticality Documentation Date Start Date Code Code System Note Provider Name and Address Organization Details Recorded Time 756036 avocado allergeni c extract food Not available Not available Not available 11/24/2020 48700 2 RxNorm MAT[place] MCPHERSON [address] [place] [address] [place], [address], [place] [facility] 20:13:57 Medications Name Sig Start Date Stop [...] Heart rate Body temperature Respiratory rate Systolic And Diastolic Provider Name and Address Organization Details Last Updated DateTime 1 97 % 97 % 88 /min 102 [degF] 20 /min 120/70 mm[Hg] Not Available [facility] 17:36:28 Date Recorded Body temperature Respiratory rate Oxygen saturation Oxygen saturation in Arterial blood by Pulse oximetry Heart rate Systolic And Diastolic Provider Name and Address Organization Details Last Updated DateTime 1 99 [degF] 16 /min 100 % 100 % 68 /min 106/58 mm[Hg] Not Available [facility] 15:28:41 Social History Question Answer Notes LastModified by Organizat ion Details LastModified Time Tobacco Smoking Status Former Smoker MATTHEW MCPHERSON [address], [place], [address], [place] [facility] 11/24/2020 20:14:43 Do You Have An Advance Directive? No [email or web address] Information not available 11/24/2020 What Is Your Code Status? Full Code [email or web address] Information not available 11/24/2020 Within The Past 12 Months, Has It Happened That The Food You Bought Just Didn't Last And You Didn't Have Money To Get More. No [email or web address] Information not available 11/24/2020 Within The Past 12 Months, Have You Worried That Your Food Would Run Out Before You Got Money To Buy More. No [email or web address] Information not available 11/24/2020 Fall Risk: Do You Feel Unsteady When Standing Or Walking? No Information not available 11/24/2020 We Know That How And When People Interact With Friends And Family Can Be Very Different From Person To Person. How Often Do You Have The Opportunity To See Or Talk To People That You Care About And Feel Close To? (Ex: Talking To Friends On The Phone Or Visiting Friends Or Family Or Going To Hoahaoism Or Club Meetings) 5 Or More Times Per Week Information not available 11/24/2020 Excessive Alcohol Or Drug Use No [email or web address] Information not available 11/24/2020 We Know From Many Of Our Patients That Covering All Of Their Costs Can Be Difficult At Times. This Can Cause Stress And Impact Health. In The Past Year, Have You Been Unable To Get Any Of The Following When It Was Really Needed? No [email or web address] Information not available 11/24/2020 What Is Your Housing Situation Today? I Have Housing [email or web address] Information not available 11/24/2020 Would You Like Help Connecting To Resources? None [email or web address] Information not available 11/24/2020 Sex: Unknown Functional Status None recorded. Mental Status None recorded. Family History Relationship Description Onset Age of this Age Resolved Age Notes LastModified by Organization Details LastModified Time Father Coronary arterioscler osis [email or web address] Not available 2020 20:14:36 Medical History Condition Response Coronary Artery Disease N COPD N Depression N Cancer N Stroke N High Cholesterol Y Kidney Disease N Diabetes N Asthma N Pulmonary Embolism N Hypertension Y Past Encounters Encounter ID Performer Location Encounter Start Date Encounter Closed Date Diagnosis/Indication Diagnosis SNOMED-CT Code Diagnosis ICD10 Code Diagnosis Note [id number] [place] [facility]ERSON [facility] [address] [place] [address] 11/24/2020 17:01:15 11/27/2020 10:53:58 Cough with fever 701391287 R05 Exposure t o communicable disease 778930017 Z20.822 [id number] HENOK COHEN NP [facility] [address] [place] [address] 11/29/2020 14:31:44 12/04/2020 09:50:17 Exposure to communicable disease 274242779 Z20.822 Health Concerns Section Related Observation LastModified by Organization Detai ls LastModified Time None Recorded Concern Status LastModified by Organization Details LastModified Time None Recorded Advance Directives Directive N: Payers Insurance Date Sequence Insurance Name Policy Number Policy [place] Covered Member ID [place] Member ID Guarantor Name 11/29/2020 1 [facility] - MEDICARE PREFERRED (MEDICARE REPLACEMENT HMO) KEVIN Arron Jean Baptiste [id number] 1 Arron Jean Baptiste 11/24/2020 1 [facility] - MEDICARE PREFERRED (MEDICARE REPLACEMENT HMO) KEVIN Arron Jean Baptiste [id number] 1 Arron Jean Baptiste 11/24/2020 1 *SELF PAY* Arron Jean Baptiste [id number] Arron Jean Baptiste 11/27/2020 2 MEDICARE B-[place]: [employer] Arron Jean Baptiste [id number] Arron Jean Baptiste Notes Date Note Type [...] vomiting or urinary symptoms. MAT[place] MCPHERSON [address], [place], [address], [place] [facility] 11/24/2020 20:24:14 11/29/2020 text/html [...] is requesting a recollection. HENOK COHEN NP [address], [place], [address], [place] [facility] 12/07/2020 17:10:31
--- OUTSIDE RECORDS SUMMARY | 2025-04-05 16:49 | XMS_ITS | Clinical Summary ---
Author Organization [facility] Address [address] [place] [address] Phone Care Team Providers Care Water Resource Manager Name Role Phone Tony Alvarez MD Primary Care Provider [phone] Allergies No known active allergies Medications acetaminophen [...] Mass Index - - Plan of Treatment Health Maintenance Due Date Last Done Comments Pneumococcal Vaccine: 50+ Years (2 of 2 - PCV) 09/30/2011 09/30/2010 Influenza Vaccine (#1) 2025 2, 09/30/2010 Hepatitis B Vaccine Aged Out No longe r eligible based on patient's age to complete this topic Insurance Care Teams Water Resource Manager Relationship Specialty Start Date End Date Tony Alvarez MD PCP - General Nephrology 06/02/23
--- OUTSIDE RECORDS SUMMARY | 2025-04-05 16:49 | XMS_ITS | Clinical Summary ---
Author Organization [address] [place] [address] Address [address] [place] [address] Phone Care Team Providers Care Utility Operator Yarn Name Role Phone Krystyna Self MD Primary Care Provider Allergies Active Allergy Reactions Criticality Noted Date Comments Fruit Extracts Swelling 04/10/2012 Vacodos Medications aspirin 81 mg EC tablet Take 1 Tab by mouth daily. 02/05/2012 Active metoprolol tartrate (LOPRESSOR) 25 mg tablet Take 1 Tab by mouth 2 times daily. 09/21/2012 Active travoprost (TRAVATAN Z) 0.004 % drops 1 Drop at bedtime. O.U. Active Active Problems Problem Noted Date Diagnosed Date Hypercholesteremia 10/28/2011 [place] (myocardial infarction) 08/09/2011 Overview (07/26/2024): Non STEMI 10/09 Glaucoma 10/11/2006 Immunizations Name Administration Dates Next Due Influenza trivalent, 0.5mL, preservative free (Fluarix; FluLaval; Fluzone) ages 6mo and older (Afluria) 3 years and older 08/07/2012,09/30/2010 Pneumococcal polysaccharide 23 valent (Pneumovax 23) 2yo and older 09/30/2010 Td Tetanus diptheria (Tdvax) 7yo and older 10/25 Surgical History Surgery Date Site/Laterality Comments OTHER SURGICAL HISTORY PROCEDURE: [place] AMP F/TH 09/30 JT/PHALANX W/NEURECT W/DIR CLSR; COMMENT: traumatic amputation distal left 4 fingers Medical History Medical History Date Comments Unspecified glaucoma(365.9) 10/11/2006 DX:U nspecified glaucoma(365.9) [place] (myocardial infarction) 08/09/2011 D X:Old [place] (myocardial infarction) Family History Medical History Relation [...] at Not on file Legal Sex Male 8:53 PM EST Gender Identity Not on file Sexual Orientation Not on file Obstetrics History Last Filed [...] 06/22/2024 1:43 PM EDT Plan of Treatment Health Maintenance Due Date Last Done Comments RSV Immunization Adult Patients (1 - 1-dose 75+ series) 2016 Pneumococcal Vaccine: 50+ Years (2 of 2 - PCV) 10/11/2021 10/11/2020, 09/21/2015, 09/30/2010 DTaP,Tdap,and Td Vaccines (2 - Td or Tdap) 10/25/2021 10/25/2011 Zoster Vaccines (2 of 2) 02/19/2023 12/25/2022 COVID-19 Vaccine ( - season) 2024 10/23/2021, 07/16/2021, 04/09/2021 Cholesterol Screening (Lipid Panel) 07/23/2024 03/18/2008 Depression Screening 07/23/2024 Falls Risk Assessment 07/23/2024 Medicare Annual Wellness Visit 07/23/2024 Social Influencers of Health Screening 07/23/2024 Influenza Vaccine (#1) 2025 , 09/21/2015, 08/07/2012, Additional history exists HIB Vaccines Aged Out No longer eligi [...] patient's age to complete this topic Meningococcal B Vaccine Aged Out No l onger eligible based on patient's age to complete [...] 209(A) 0 - 200 mg/dL HDL 79 >=40 mg/dL LDL Cholesterol 114(A) 0 - 100 mg/dL Blood Venous blood specimen / Unknown [facility] Provider LAB BLOOD ORDERABLES Carlene l Result from Last 3 Months or Most Recently Relevant to Health Maintenance Insurance [employer] Care Teams Utility Operator Yarn Relationship Specialty Start Date End Date Krystyna Self MD [address] [place] [address] [place] [address] PCP - General 06/16/24
[2025-04-05 17:05] LABS: MANUAL DIFF FLAG NO
[2025-04-05 17:14] LABS: Hematocrit 40.5 % (42.0-52.0); Hemoglobin 14.0 g/dl (14.0-18.0); Imm Gran Abs Auto 0.02 X10*3/uL (0.00-0.03); Imm Gran Pct Auto 0.3 % (0.0-0.4); Lymphocytes Absolute Auto 1.2 X10*3/uL (1.2-4.9); Mean Corpuscular HGB Conc 34.6 g/dl (31.0-36.0); Mean Corpuscular Hemoglobin 35.7 pg (27.0-33.0); Mean Corpuscular Volume 103.3 fL (80.0-98.0); NRBC Abs Auto 0.000 X10*3/uL (0.0-0.012); NRBC Pct Auto 0.0 /100WBC (0.0-0.2); Platelet Count 139 X10*3/uL (160-400); Red Blood Count 3.92 X10*6/uL (4.60-5.80); White Blood Count 6.2 X10*3/uL (4.8-10.8)
[2025-04-05 17:38] LABS: Alanine Aminotransferase 22 U/L (0-40); Albumin Level 4.2 g/dL (3.5-5.0); Alkaline Phosphatase 109 U/L (39-117); Anion Gap 13 (12-20); Aspartate Amino Transferase 48 U/L (5-37); Blood Urea Nitrogen 12 mg/dL (9-16); Calcium 9.3 mg/dL (8.4-10.2); Carbon Dioxide 24 mmol/L (22-29); Chloride 103 mmol/L (96-108); Cholesterol 181 mg/dL (<200); Estimated Glomerular Filt Rate 47; HDL Cholesterol 78 mg/dL (>40); Potassium 4.8 mmol/L (3.3-5.1); Sodium 135 mmol/L (135-145); Total Protein 7.9 g/dL (6.5-8.0); Triglycerides 57 mg/dL (<150)
[2025-04-05 17:53] LABS: PSA,Total (Free>4and<10) 0.43 ng/mL (0.00-4.00)
[2025-04-05 18:07] LABS: Folate 6.8 ng/mL (> or = 4.0); Vitamin B12 269 pg/mL (200-900)
== END 2025-04-05 16:47 | disposition home or self-care (01) ==
LOC: HO.LAB 16:46
PROVIDERS: PCP Internal Medicine; Visit Provider Internal Medicine
DX: I12.9 Hypertensive chronic kidney disease with stage 1 through stage 4 chronic kidney disease, or unspecified chronic kidney disease (principal); N18.9 Chronic kidney disease, unspecified; E78.00 Pure hypercholesterolemia, unspecified; N40.0 Benign prostatic hyperplasia without lower urinary tract symptoms; F10.27 Alcohol dependence with alcohol-induced persisting dementia
CPT/HCPCS: 36415; 80053; 80061; 82607; 82746; 84153; 84425; 85025

== ENCOUNTER 2025-07-11 22:56 | Inpatient (IN) | payer MEDICARE, SELFPAY ==
--- NOTE | 2025-07-11 | ECG_ITS ---
Test Reason : fall Blood Pressure : */* mmHG Vent. Rate : 91 BPM Atrial Rate : * BPM P-R Int : * ms QRS Dur : 90 ms QT Int : 380 ms P-R-T Axes : * -11 12 degrees QTcB Int : 467 ms Atrial fibrillation Abnormal ECG When compared with ECG of 04-Nov-2024 17:29, No significant change was found Referred By: Generic ED Physician Electronically Signed By: Onofre Gomez
--- NOTE | ~2025-07-11 | CT_ITS ---
CLINICAL HISTORY: ? fx CT Left Knee WO Contrast COMPARISON: None provided FINDINGS: No acute fracture or dislocation. Severe narrowing of the tibiofemoral joint space. Degenerative bony spurring in all compartments. Calcified intra-articular loose bodies. Epnjfcnw-vz-ktlif effusion. Popliteal cyst measuring 4.2 x 3.3 x 7.3 cm. Peripheral atherosclerosis. IMPRESSION: No acute fracture. Ckncxyys-yd-szzjm effusion. Popliteal cyst. Degenerative changes. This document has been electronically signed by: Sandip Moses MD on 07/12/2025 01:58:07
--- NOTE | ~2025-07-11 | CT_ITS ---
CLINICAL HISTORY: head injury CT Head WO Contrast COMPARISON: CT/SR - CT HEAD/BRAIN WO IV CON - 11/04/24 16:08 EST FINDINGS: No acute intracranial hemorrhage. No evidence of acute infarction. Diffuse cortical volume loss. Nonspecific white matter hypodensities, most commonly associated with chronic microangiopathic changes. No mass-effect or midline shift. No hydrocephalus. Visualized orbits are normal. Clear paranasal sinuses. Clear mastoid air cells. No acute fracture. Similar partially visualized cysts in the right lateral face subcutaneous fat. Similar partially visualized atrophic or absent right parotid gland. IMPRESSION: No acute intracranial findings. Nonemergent/incidental findings in the report. This document has been electronically signed by: Sandip Moses MD on 07/12/2025 01:51:11
--- NOTE | ~2025-07-11 | CT_ITS ---
CLINICAL HISTORY: fall CT Cervical Spine WO Contrast COMPARISON: CT/SR - CT CERVICAL SPINE WO IV CON - 11/04/24 16:08 EST FINDINGS: No acute fracture or malalignment. Degenerative changes in the spine. Chronic C3-T2 compression fractures. Soft tissues are normal. Lung apices are clear. IMPRESSION: No acute findings. Nonemergent/incidental findings above. This document has been electronically signed by: Sandip Moses MD on 07/12/2025 01:50:50
[2025-07-11 23:06] VITALS: BP 146/69; BP 160/80; PULSE 89; PULSE 99; RESP 16; TEMP 36.6; O2SAT 98; O2SAT 99; BMI 24.8
[2025-07-11 23:22] LABS: Hematocrit 38.9 % (42.0-52.0); Hemoglobin 13.3 g/dl (14.0-18.0); Imm Gran Abs Auto 0.02 X10*3/uL (0.00-0.03); Imm Gran Pct Auto 0.2 % (0.0-0.4); Lymphocytes Absolute Auto 0.6 X10*3/uL (1.2-4.9); MANUAL DIFF FLAG NO; Mean Corpuscular HGB Conc 34.2 g/dl (31.0-36.0); Mean Corpuscular Hemoglobin 35.1 pg (27.0-33.0); Mean Corpuscular Volume 102.6 fL (80.0-98.0); NRBC Abs Auto 0.000 X10*3/uL (0.0-0.012); NRBC Pct Auto 0.0 /100WBC (0.0-0.2); Platelet Count 114 X10*3/uL (160-400); Red Blood Count 3.79 X10*6/uL (4.60-5.80); White Blood Count 10.3 X10*3/uL (4.8-10.8)
[2025-07-11 23:24] VITALS: BP 150/77; PULSE 93; RESP 16; TEMP 36.6; O2SAT 99
[2025-07-11 23:28] LABS: INTERNATIONAL NORM RATIO 1.4 (0.9-1.1); Prothrombin Time 16.5 SEC (10.9-12.4)
[2025-07-11 23:39] LABS: Anion Gap 16 (12-20); Blood Urea Nitrogen 17 mg/dL (9-16); Calcium 9.2 mg/dL (8.4-10.2); Carbon Dioxide 21 mmol/L (22-29); Chloride 104 mmol/L (96-108); Creatinine Clr Calc Pharmacy 39.8; Estimated Glomerular Filt Rate 53; Magnesium 2.1 mg/dL (1.6-2.6); Potassium 4.6 mmol/L (3.3-5.1); Sodium 136 mmol/L (135-145)
[2025-07-11 23:43] LABS: Troponin-I High Sensitivity 10.7 ng/L (<3.5-35.0)
--- NOTE | 2025-07-11 23:43 | ED.LOWEXIN ---
HPI - Extremity Injury (Lower) General Chief Complaint: Extremity Injury, Lower Stated Complaint: Knee injury x1 day swelling, dementia, Afib, Time Seen by Provider: 07/11/25 23:20 History of Present Illness HPI Narrative: Patient is an 85-year-old male from home. Complaining of swelling to the left knee. There is question fall. Patient from home. Has a history of atrial fibrillation currently is on Xarelto. Claims compliance with medication. There is no chest pain there is no diaphoresis. There is no fever no chills. Patient is from home. Unable to give exact details patient has longstanding history of dementia. Related Data Home Medications ?Medication ?Instructions ?Recorded ?Confirmed rivaroxaban 15 mg tablet (Xarelto) 15 mg PO QPM 11/04/24 11/04/24 Previous Rx's ?Medication ?Instructions ?Recorded atorvastatin 10 mg tablet 10 mg PO DAILY #30 tabs 06/28/24 rivaroxaban 15 mg tablet (Xarelto) 15 mg PO DAILY #30 tabs 06/28/24 metoprolol tartrate 50 mg tablet 50 mg PO BID #180 tabs 08/03/24 Allergies Allergy/AdvReac Type Severity Reaction Status Date / Time avocado (AVOCADO) Allergy Severe DIFFICULTY Verified 07/11/25 23:08 BREATHING Review of Systems Review of Systems: Positive pain to the left knee. Unable to obtain details secondary to patient's mental status [facility] Past Medical History Attestation statement: The following information was validated with the patient. Medical History Afib Amputation of left index finger Hyperlipidemia Hypertension Family History Family History Mother Hypertension Father Heart disease Social History Social History Household Members: Spouse Housing: Apartment Do you presently have visiting nurse or other home services: No Alcohol intake: current Alcohol intake frequency: 3 or more drinks per day Alcohol type: beer and hard liquor Comment: across from RN station Patient Tobacco Use Status: Never used Tobacco Use of substances other than those prescribed or required for medical reasons: No Have you been hit, kicked, punched, or otherwise hurt by someone within the past year? If so, by whom?: No Do you feel safe in your current relationship?: Yes Is there a partner from a previous relationship who is making you feel unsafe now?: No Are you made to feel afraid or neglected: No Advance Directives: No Advance Directives Information Provided: Yes Do you have a plan to hurt others: No Plan Recently lost weight without trying: No Nutrition Risks: No Nutritional Risk Poor oral hygiene: No service: No Current occupational status: retired Physical Exam Exam: Exam: Appearance: Alert. Oriented X3. No acute distress. Eyes: Pupils equal, round and reactive to light. ENT: Pharynx normal. Neck: Normal inspection. Neck supple. No lymph nodes noted. No crepitus CVS: Normal heart rate and rhythm. Pulses normal. Normal S1 and S2 Respiratory: No respiratory distress. Breath sounds normal. No Wheezing. No rales Abdomen: Soft and nontender. No rigidity. No distention. good BS x4 Skin: Skin warm and dry. Normal skin color. Normal skin turgor. Extremities: Positive swelling to the left knee. There is joint effusion noted. There is no point tenderness elicited. Range of motion at the knee is limited. Distal pulses intact sensation intact. No tenderness on palpation of the left hip. Skin intact. Neuro: Oriented X 3. No motor deficit. No sensory deficit. Moving all extermities. No slurred speech Vital Signs: Vital Signs: Last Vital Signs Temp 97.2 F 07/12/25 08:00 Pulse 89 07/12/25 08:00 Resp 20 07/12/25 08:00 BP 152/79 H 07/12/25 08:00 Pulse Ox 99 07/12/25 08:00 O2 Del Method Room Air 07/12/25 08:00 BMI result Body Mass Index 24.8 Medications Administered Discontinued Medications Generic Name Dose Route Start Last Admin Trade Name Freq PRN Reason Stop Dose Admin Vancomycin HCl 1,000 mg/ 535 mls @ 267.5 mls/hr 07/12/25 04:30 07/12/25 07:04 Vancomycin HCl 750 mg/ Sodium IV 07/12/25 06:29 Infused Chloride ONCE ONE Infusion Cefepime HCl 2 gm in 50 mls @ 100 mls/hr 07/12/25 03:43 07/12/25 04:55 Maxipime IV 07/12/25 04:12 Infused ONCE ONE Infusion Lidocaine/Epinephrine 10 ml 07/12/25 00:51 07/12/25 02:08 Lidocaine Hcl 1%/Epi 1:100,000 10 Ml Vial SUBCUT 07/12/25 00:52 10 ml ONCE ONE Administration Medical Decision Making Medical Decision Making [facility] Narrative: Large effusion in the left knee. Question traumatic in origin. Will get a CT scan to ensure there is no fracture. CT head and CT C-spine also ordered there was a question of a fall. Patient has no gross finding on exam. He is on Xarelto. He is elderly at 85. My interpretation patient's EKG shows an atrial fibrillation pattern heart rate in the 80s no acute ST segment elevation noted Patient is on Xarelto but the knee appears enlarged with large amount of joint effusion. I did a CT scan of the knee. I did not appreciate any gross fracture. I did see large amount of effusion on the CT. Risks and benefits of the arthrocentesis discussed with patient and family. Daughter who is the [id number] agreed to the procedure. Risks of procedure including infection and bleeding explained. Vascular injury also explained. Okay with the procedure. Please see procedure note. Over 70 cc of straw-colored fluid was removed. The cell analysis is currently pending. Cell count came back at 50,000 white blood cells, concern for potential septic arthritis thou he is on the edge of infectious versus inflammatory. He has no elevated white blood cell count, no elevated lactic acidosis, no fever and is resting comfortably after being tapped. No purulent drainage on the tap earlier. He we will be covered with vancomycin and cefepime, admitted to hospitalist for further care and evaluation. Case discussed with orthopedic surgery as well who will follow the case along with medicine. Admitted in guarded condition. Differential Diagnosis Differential Diagnoses: The differential diagnosis associated with the presentation includes Fracture Admission/Observation Consideration of admission/observation: Escalation of care including admission/observation considered Lab Data [facility] Lab Attestation statement: I reviewed the patient's lab results. 07/11/25 23:17 07/11/25 23:17 Labs: Lab Results 07/11/25 07/12/25 07/12/25 Range/Units 23:17 01:29 04:10 WBC 10.3 (4.8-10.8) X10*3/uL RBC 3.79 L (4.60-5.80) X10*6/uL Hgb 13.3 L (14.0-18.0) g/dl Hct 38.9 L (42.0-52.0) % MCV 102.6 H (80.0-98.0) fL MCH 35.1 H (27.0-33.0) pg MCHC 34.2 (31.0-36.0) g/dl RDW 12.4 (11.0-16.0) % Plt Count 114 L (160-400) X10*3/uL MPV 9.5 (9.4-12.4) fL Immature Gran % (Auto) 0.2 (0.0-0.4) % Neut % (Auto) 82.6 H (45-73) % Lymph % (Auto) 6.2 L (20-40) % [place] % (Auto) 10.7 (2-11) % Eos % (Auto) 0.0 (0-4) % Baso % (Auto) 0.3 (0-2) % Lymph # (Auto) 0.6 L (1.2-4.9) X10*3/uL [place] # (Auto) 1.1 (0.1-1.2) X10*3/uL Eos # (Auto) 0.0 (0.0-0.4) X10*3/uL Baso # (Auto) 0.0 (0.0-0.2) X10*3/uL Abs Immat Gran (auto) 0.02 (0.00-0.03) X10*3/uL Absolute Neuts (auto) 8.5 H (2.0-8.3) x10*3/uL Absolute Nucleated RBC 0.000 (0.0-0.012) X10*3/uL Nucleated RBC % (auto) 0.0 (0.0-0.2) /100WBC ESR 20 H (0-15) MM/HR PT 16.5 H (10.9-12.4) SEC INR 1.4 H (0.9-1.1) Sodium 136 (135-145) mmol/L Potassium 4.6 (3.3-5.1) mmol/L Chloride 104 (96-108) mmol/L Carbon Dioxide 21 L (22-29) mmol/L Anion Gap 16 (12-20) BUN 17 H (9-16) mg/dL Creatinine 1.29 (0.5-1.4) mg/dL Estim Creat Clear Calc 39.8 Estimated GFR 53 Random Glucose 140 H (60-115) mg/dL Lactic Acid 1.6 (0.5-2.0) mmol/L Calcium 9.2 (8.4-10.2) mg/dL Magnesium 2.1 (1.6-2.6) mg/dL Troponin I High Sens 10.7 D (<3.5-35.0) ng/L C-Reactive Protein 3.15 H (< or = 0.50) mg/dL Synovial Source left knee Synovial WBC 50.312 X10*3/uL Synovial RBC 0.017 X10*6/uL Synovial Neutrophils 97 % Synovial Monocytes 3 % Independent Interpretation I performed an independent interpretation of an: CT Scan (My interpretation patient's CT head and CT C-spine were both grossly negative. My interpretation patient's knee CT showed large amount of effusion.) Radiology Impression Discussion of test interpretation with radiology: I have reviewed the radiologist's reading. Procedures Joint Aspiration/Injection Joint Asp./Inject. 1: Time Out Performed: Yes Side of body: left Joint Aspirated: knee Ultrasound Guidance: No Skin Prep: Povidone-Iodine1% Local Anesthetic: lidocaine 1% Amount of anesthesia used (mL): 5 Needle Size Used: 20G Fluid Obtained: turbid Total fluid obtained (mL): 70 Patient Tolerated Procedure: well Complications: none Discharge Plan Discharge Clinical Impression: Effusion, left knee, Septic arthritis of knee, left Patient Disposition: Admitted As Inpatient Interventions: Admission Worksheet (ED) Last Done: 07/12/25 07:20 Discharge Date/Time: 07/12/25 08:00
--- OUTSIDE RECORDS SUMMARY | 2025-07-11 23:52 | XMS_ITS | Clinical Summary ---
Author Organization [address] [place] [address] Address [address] [place] [address] Phone Care Team Providers Care Auto Brake Technician Name Role Phone Krystyna Self MD Primary Care Provider [phone] Allergies Active Allergy Reactions Criticality Noted Date [...] Noted Date Diagnosed Date Hypercholesteremia 10/28/2011 Old [place] (myocardial infarction) 08/09/2011 Overview (07/26/2024): Non STEMI 10/09 Glaucoma 10/11/2006 Immunizations Immunization Administration Dates Next Due Influenza trivalent, 0.5mL, preservative free (Fluarix; FluLaval; Fluzone) ages 6mo and older (Afluria) 3 years and older 08/07/2012,09/30/2010 Pneumococcal polysaccharide 23 valent (Pneumovax 23) 2yo and older 09/30/2010 Td Tetanus diptheria (Tdvax) 7yo and older 10/25 Surgical History Surgery Date Site/Laterality Comments OTHER SURGICAL HISTORY PROCEDURE: [place] AMP F/TH 09/30 JT/PHALANX W/NEURECT W/DIR CLSR; COMMENT: traumatic amputation distal left 4 fingers Medical History Medical History Date Comments Unspecified glaucoma(365.9) 10/11/2006 DX:U nspecified glaucoma(365.9) Old [place] (myocardial infarction) 08/09/2011 D X:Old [place] (myocardial infarction) Family History Medical History Relation [...] Zoster Vaccines (2 of 2) 02/19/2023 12/25/2022 Cholesterol Screening (Lipid Panel) 07/23/2024 03/18/2008 Falls Risk Assessment 07/23/2024 Medicare Annual Wellness Visit 07/23/2024 Social Influencers of Health Screening 07/23/2024 Depression Screening 09/29/2024 COVID-19 Vaccine ( season) 2025 10/23/2021, 07/16/2021, 04/09/2021 Influenza Vaccine (#1) 2025 , 09/21/2015, 08/07/2012, [...] mg/dL Blood Venous blood specimen / Unknown [facility] Provider LAB BLOOD ORDERABLES Carlene l Result from Last 3 Months or Most Recently Relevant to Health Maintenance Insurance [employer] Care Teams Auto Brake Technician Relationship Specialty Start Date End Date Krystyna Self MD [address] [place] [address] [place] [address] PCP - General 06/16/24
--- OUTSIDE RECORDS SUMMARY | 2025-07-11 23:52 | XMS_ITS | Clinical Summary ---
Author Organization [facility] Address [address] [place] [address] Phone Care Team Providers Care Ob Scrub Tech Name Role Phone Tony Alvarez MD Primary Care Provider [phone] Allergies No known active allergies Medications acetaminophen [...] to complete this topic Insurance Care Teams Ob Scrub Tech Relationship Specialty Start Date End Date Tony Alvarez MD PCP - General Nephrology 06/02/23
[2025-07-12 01:37] LABS: Source Synovial Fluid left knee
[2025-07-12 01:40] LABS: MN% 4.7 %; PMN% 95.3 %; RBC Synovial Fluid 0.017 X10*6/uL
[2025-07-12] MEDS: Lidocaine HCl 1%/Epi 1:100,000 10 ML VIAL SUBCUT (02:08)
[2025-07-12 02:25] LABS: BF Shift QC OK YES; Man Diluent Bkgrd OK YES; Monocytes Synovial Fluid 3 %; Neutrophils Synovial Fluid 97 %
[2025-07-12 04:09] VITALS: BP 145/86; PULSE 89; RESP 16; O2SAT 100
[2025-07-12] MEDS: cefEPime HCl/D5W 2 GM/50 ML PIGGYBACK IV ×2 (04:16→15:27)
[2025-07-12] MEDS: vancomycin HCL 1,000 MG, vancomycin HCL 750 MG in 0.9 % Sodium Chloride 500 ML 267.5 MG IV (05:01)
--- NOTE | 2025-07-12 06:01 | HO.NURTONUR ---
Pt is 85 Kuwaiti speaking male with dementia AFIB biba from home after reporting pain increased swelling and inability to walk from left knee starting yesterday. + pulses. CT showed moderate to large effusion. Dr HORTON drained 70mL of straw colored fluid. CRP 3.15. Patient is alert to self and situation. 20g Bilateral hands. Given cefepime and vanco
[2025-07-12 06:21] VITALS: BP 100/77; PULSE 87; RESP 16; TEMP 36.7; O2SAT 97
[2025-07-12 08:00] VITALS: BP 152/79; PULSE 89; RESP 20; TEMP 36.2; O2SAT 99
[2025-07-12 08:16] VITALS: BMI 24.0
--- NOTE | 2025-07-12 08:40 | PM.IMHP ---
History of Present Illness Date of Service: 07/12/25 Chief Complaint: Knee pain 5-year-old man presenting with complaints of left knee pain and swelling. According to the patient's he walks a lot and yesterday he was complaining of not being able to walk and having pain in the knee. She reports that this started on Friday and he was even unable to get up from the bed. He denied any recent injury or fall. According to the patient's he may have had something like this several years ago but no definitive diagnosis. In the ER, knee cat scan showed no fracture but did show moderate to large effusion. ER provider drained 70 cc of straw-colored fluid, sent for culture. Patient was treated with IV antibiotics vancomycin and cefepime. Plan will be to admit for further management and treatment of left knee effusion. Review of Systems Review of Systems: Denies any recent fever chills or decrease in appetite respiratory denies any shortness of breath or cough cardiovascular denies chest pain gastrointestinal denies any dysphagia abdominal pain nausea vomiting or diarrhea genitourinary denies any dysuria frequency or hematuria musculoskeletal right knee edema and pain neuropsych denies any weakness or seizures all other systems reviewed are negative [facility] Medical History Afib Amputation of left index finger Hyperlipidemia Hypertension Family History Mother Hypertension Father Heart disease Social History Household Members: Spouse Housing: Apartment Do you presently have visiting nurse or other home services: No Alcohol intake: current Alcohol intake frequency: 3 or more drinks per day Alcohol type: beer and hard liquor Comment: across from RN station Patient Tobacco Use Status: Never used Tobacco Use of substances other than those prescribed or required for medical reasons: No Have you been hit, kicked, punched, or otherwise hurt by someone within the past year? If so, by whom?: No Do you feel safe in your current relationship?: Yes Is there a partner from a previous relationship who is making you feel unsafe now?: No Are you made to feel afraid or neglected: No Advance Directives: No Advance Directives Information Provided: Yes Do you have a plan to hurt others: No Plan Recently lost weight without trying: No Nutrition Risks: No Nutritional Risk Poor oral hygiene: No service: No Current occupational status: retired Meds Allergies Allergy/AdvReac Type Severity Reaction Status Date / Time avocado (AVOCADO) Allergy Severe DIFFICULTY Verified 07/11/25 23:08 BREATHING Active Medications: Current Medications Acetaminophen (Acetaminophen 325 Mg Tablet) 650 mg PO Q6H PRN PRN Reason: Pain, Mild 1-3,fever,headache Calcium Carbonate (Calcium Carbonate 750 Mg Tab.Chew) 750 mg PO Q4H PRN PRN Reason: Heartburn Cefepime HCl (Maxipime) 2 gm in 50 mls @ 100 mls/hr IV Q12H LEONEL Magnesium Hydroxide (Milk Of Magnesia 30 Ml Oral.Susp) 30 ml PO DAILY PRN PRN Reason: Constipation Melatonin (Melatonin 3 Mg Tablet) 6 mg PO BEDTIME PRN PRN Reason: Insomnia Morphine Sulfate (Morphine Sulfate 2 Mg/Ml Cartridge) 1 mg IVPUSH Q4H PRN; Protocol PRN Reason: Pain, Severe (Pain Scale 7-10) Ondansetron HCl (Ondansetron Hcl 4 Mg/2 Ml Vial) 4 mg IVPUSH Q8H PRN PRN Reason: Nausea and Vomiting Sodium Chloride (0.9 % Sodium Chloride Flush 3 Ml Syringe) 3 [facility] Medications ?Medication ?Instructions ?Recorded ?Confirmed ?Last Taken ?Type rivaroxaban 15 mg tablet (Xarelto) 15 mg PO QPM 11/04/24 11/04/24 Unknown History Physical Exam Vital Signs and Narrative: Vital Signs: Last Vital Signs Temp 97.2 F 07/12/25 08:00 Pulse 89 07/12/25 08:00 Resp 20 07/12/25 08:00 BP 152/79 H 07/12/25 08:00 Pulse Ox 99 07/12/25 08:00 O2 Del Method Room Air 07/12/25 08:00 BMI result Body Mass Index 24.0 Appearing in no acute distress head is normocephalic atraumatic eyes pupils are PERRLA sclera is anicteric mouth throat mucous membranes are intact and moist neck is supple no lymphadenopathy, no JVD noted lung sounds are clear to auscultation heart regular rate rhythm, clear S1, S2 positive bowel sounds, abdomen is soft, nontender neuro patient is alert x3, no focal deficits Left knee noted edema, Reji wrapped Results Labs 07/11/25 23:17 07/11/25 23:17 Labs: Laboratory Results - last 24 hr 07/11/25 07/12/25 07/12/25 23:17 01:29 04:10 MCV 102.6 H MCH 35.1 H MCHC 34.2 RDW 12.4 Plt Count 114 L MPV 9.5 Immature Gran % (Auto) 0.2 Neut % (Auto) 82.6 H Lymph % (Auto) 6.2 L [place] % (Auto) 10.7 Eos % (Auto) 0.0 Baso % (Auto) 0.3 Lymph # (Auto) 0.6 L [place] # (Auto) 1.1 Eos # (Auto) 0.0 Baso # (Auto) 0.0 Abs Immat Gran (auto) 0.02 Absolute Neuts (auto) 8.5 H Absolute Nucleated RBC 0.000 Nucleated RBC % (auto) 0.0 ESR 20 H PT 16.5 H INR 1.4 H Anion Gap 16 Estim Creat Clear Calc 39.8 Estimated GFR 53 Random Glucose 140 H Lactic Acid 1.6 Calcium 9.2 Magnesium 2.1 Troponin I High Sens 10.7 D C-Reactive Protein 3.15 H Synovial Source left knee Synovial WBC 50.312 Synovial RBC 0.017 Synovial Neutrophils 97 Synovial Monocytes 3 Assessment and Plan (1) Osteoarthritis of left knee: Status: Acute (2) Effusion, left knee: Status: Acute Plan 85-year-old man admitted with left knee pain and swelling noted to have moderate to large effusion Left knee effusion History of osteoarthritis to that knee 70 cc of fluid removed in the ER, sent for fluid culture Pain management Orthopedic surgery consultation Keep elevated May use ice Check uric acid Hold off on antibiotics for now CKD stage 3A Baseline Paroxysmal atrial fibrillation Continue Xarelto and metoprolol Hyperlipidemia Statin Elevated blood pressure reading Likely secondary to pain DVT prophylaxis with Xarelto Full code Quality Stroke Does the patient have a stroke diagnosis?: No VTE Prior VTE?: No VTE Risk Level:: Medical - moderate - high VTE Device Contraindication: Treatment Not Indicated VTE Drug Contraindication: N/A - Med Ordered
[2025-07-12 09:36] LABS: Uric Acid 6.3 mg/dL (3.4-7.0)
--- NOTE | 2025-07-12 10:32 | P.CONOP_ITS ---
History of Present Illness HPI Consult date: 07/12/25 Chief complaint: left knee effusion, question septic arthritis Narrative: 85-year-old male from home admitted to the medical service for ongoing left knee pain and swelling . Patient is a poor historian due to his dementia. Significant other in room who states he walks a lot and was out walking all day and later that day he was complaining of swelling to the left knee. Unsure if he fell .Has a history of atrial fibrillation currently is on Xarelto. Claims compliance with medication. Left knee was asp in the ED, significant for intracellular calcium pyrophosphate crystals. Orthopedics consulted for recommendations Review of Systems 2 Review of Systems: Yes all other systems are reviewed and are negative PMFSH Past Medical History Medical History Afib Amputation of left index finger Hyperlipidemia Hypertension Family History Family History Mother Hypertension Father Heart disease Social History Social History Household Members: Spouse Housing: Apartment Do you presently have visiting nurse or other home services: No Alcohol intake: current Alcohol intake frequency: 3 or more drinks per day Alcohol type: beer and hard liquor Comment: across from RN station Patient Tobacco Use Status: Never used Tobacco Use of substances other than those prescribed or required for medical reasons: No Have you been hit, kicked, punched, or otherwise hurt by someone within the past year? If so, by whom?: No Do you feel safe in your current relationship?: Yes Is there a partner from a previous relationship who is making you feel unsafe now?: No Are you made to feel afraid or neglected: No Advance Directives: No Advance Directives Information Provided: Yes Do you have a plan to hurt others: No Plan Recently lost weight without trying: No Nutrition Risks: No Nutritional Risk Poor oral hygiene: No service: No Current occupational status: retired Meds Allergies Allergy/AdvReac Type Severity Reaction Status Date / Time avocado (AVOCADO) Allergy Severe DIFFICULTY Verified 07/11/25 23:08 BREATHING Active Medications: Current Medications Acetaminophen (Acetaminophen 325 Mg Tablet) 650 mg PO Q6H PRN PRN Reason: Pain, Mild 1-3,fever,headache Calcium Carbonate (Calcium Carbonate 750 Mg Tab.Chew) 750 mg PO Q4H PRN PRN Reason: Heartburn Cefepime HCl (Maxipime) 2 gm in 50 mls @ 100 mls/hr IV Q12H LEON[facility] Magnesium Hydroxide (Milk Of Magnesia 30 Ml Oral.Susp) 30 ml PO DAILY PRN PRN Reason: Constipation Melatonin (Melatonin 3 Mg Tablet) 6 mg PO BEDTIME PRN PRN Reason: Insomnia Morphine Sulfate (Morphine Sulfate 2 Mg/Ml Cartridge) 1 mg IVPUSH Q4H PRN; Protocol PRN Reason: Pain, Severe (Pain Scale 7-10) Ondansetron HCl (Ondansetron Hcl 4 Mg/2 Ml Vial) 4 mg IVPUSH Q8H PRN PRN Reason: Nausea and Vomiting Sodium Chloride (0.9 % Sodium Chloride Flush 3 Ml Syringe) 3 ml IVFLUSH QSHIFT [facility] Home Medications ?Medication ?Instructions ?Recorded ?Confirmed ?Last Taken ?Type rivaroxaban 15 mg tablet (Xarelto) 15 mg PO QPM 11/04/24 Unknown History Physical Exam 2 Vital Signs: Vital Signs: Last Vital Signs Temp 97.2 F 07/12/25 08:00 Pulse 89 07/12/25 08:00 Resp 20 07/12/25 08:00 BP 152/79 H 07/12/25 08:00 Pulse Ox 99 07/12/25 08:00 O2 Del Method Room Air 07/12/25 08:00 BMI result Body Mass Index 24.0 Const: General: cooperative, healthy appearing and comfortable Extrem: Other: Left knee hemarthrosis No redness or warmth Mild discomfort with ROm Calf supple non tender NVI Results Labs 07/11/25 23:17 07/11/25 23:17 Labs: Abnormal lab results 07/11/25 07/12/25 Range/Units 23:17 04:10 RBC 3.79 L (4.60-5.80) X10*6/uL Hgb 13.3 L (14.0-18.0) g/dl Hct 38.9 L (42.0-52.0) % MCV 102.6 H (80.0-98.0) fL MCH 35.1 H (27.0-33.0) pg Plt Count 114 L (160-400) X10*3/uL Neut % (Auto) 82.6 H (45-73) % Lymph % (Auto) 6.2 L (20-40) % Lymph # (Auto) 0.6 L (1.2-4.9) X10*3/uL Absolute Neuts (auto) 8.5 H (2.0-8.3) x10*3/uL ESR 20 H (0-15) MM/HR PT 16.5 H (10.9-12.4) SEC INR 1.4 H (0.9-1.1) Carbon Dioxide 21 L (22-29) mmol/L BUN 17 H (9-16) mg/dL Random Glucose 140 H (60-115) mg/dL C-Reactive Protein 3.15 H (< or = 0.50) mg/dL H & H 07/11/25 Range/Units 23:17 Hgb 13.3 L (14.0-18.0) g/dl Hct 38.9 L (42.0-52.0) % Coagulation 07/11/25 Range/Units 23:17 INR 1.4 H (0.9-1.1) Name: Arron Jean Baptiste Age/Sex: 85/M : 1940 Unit#: [id number] Attend Dr: Mariele Templeton MD Re07/12/25 Status: ADM IN Location: [facility] 375-1 D isch: Specimen: [id number] Collected: 07/12/25 Status: RES Req#: [id number] Received: 07/12/25 Source: Knee aspir Sp Desc: Subm Dr: Grace Beck MD Ordered: SynFld Cult/Cry Procedure Result Verified Gram stain Final 07/12/25 Gram stain results: 4+ polys No organisms seen Anaerobic Culture PENDING Appearance Final 07/12/25 Appearance Turbid Crystals Final 07/12/25 Crystals intracellular calcium pyrophosphate crystals Diagnostic results Knee CT: image reviewed (IMPRESSION: No acute fracture. [id number]-copyt effusion. Popliteal cyst. Degenerative changes.) Assessment and Plan (1) Effusion, left knee: Status: Acute Plan Compression PT for WBAT , ROM No evidence of septic joint Fluid analysis consistent with intracellular calcium pyrophosphate crystals No further orthopedic surgical intervention warranted Procedures Date of Service Date of Service: 07/12/25
--- NOTE | 2025-07-12 11:19 | MHC.CM.PN ---
IMM DELIVERED PT LIVES WITH SPOUSE AND IS FUNCTIONALLY INDEPENDENT AT BASELINE. NO SERVICES OR DME. + HCP ON FILE AND VERIFIED. PCP DR. ESPINOZA DP: HOME WITH [facility] ([facility] FOR P.T. IS THE GOAL. PT'S SPOUSE WILL TRANSPORT. CM WILL CONTINUE TO FOLLOW FOR ANY CHANGE TO DC PLAN/NEEDS.
--- NOTE | 2025-07-12 13:50 | PHA.MEDREC ---
Addendum entered by Doris Gonzalez RPh 07/12/25 14:01: Reviewed by [facility]. Will communicate to the provider regarding Xarelto vs Eliquis. Original Note: Pharmacy Consult ? Medication Reconciliation Pharmacy has completed the medication reconciliation. Spoke to patient at bedside to confirm med list. states patient takes Xarelto 15 mg , however there is no claim history, Ketorolac 0.5 % ,last filled 05/02/25 for 30 days, Atorvastatin 10 mg , last filled 01/04/25 for 90 days, Metoprolol Succ Er 100 mg , last filled 01/04/25 for 90 days. Called [facility] to confirm Xarelto. [facility] states no history of [facility]to, however Eliquis 5 mg has been called in twice in December 2024 and March 2025 but patient never picked up. states patient took all his medications yesterday.
[2025-07-12 15:20] VITALS: BP 166/80; PULSE 98; RESP 20; TEMP 36.6; O2SAT 99
[2025-07-12] MEDS: 0.9 % Sodium Chloride Flush 3 ML SYRINGE IVFLUSH ×2 (15:30→19:40)
--- NOTE | 2025-07-12 19:29 | PM.EVENT ---
Event Note Date of Service: 07/12/25 Event Note: Pt's knee tap indicative of CPPD crystals suggestive of Gout -will initiate COlchicine 1.2 mg as this needs to be initiated within 36 hrs of an attack Camilla po colchicine 0.6 from tomorrow AM PT/OT and STR Time Spent With Patient Time: Total time managing care of this patient today ____ minutes.
[2025-07-12 19:39] VITALS: BP 157/80; RESP 20; TEMP 37.1; O2SAT 98
[2025-07-13] MEDS: cefEPime HCl/D5W 2 GM/50 ML PIGGYBACK IV (03:56)
[2025-07-13 04:00] VITALS: BP 140/90; PULSE 66; RESP 18; TEMP 36.6; O2SAT 98
[2025-07-13 06:25] LABS: Hematocrit 37.5 % (42.0-52.0); Hemoglobin 12.6 g/dl (14.0-18.0); Mean Corpuscular HGB Conc 33.6 g/dl (31.0-36.0); Mean Corpuscular Hemoglobin 34.9 pg (27.0-33.0); Mean Corpuscular Volume 103.9 fL (80.0-98.0); NRBC Abs Auto 0.000 X10*3/uL (0.0-0.012); NRBC Pct Auto 0.0 /100WBC (0.0-0.2); Platelet Count 106 X10*3/uL (160-400); Red Blood Count 3.61 X10*6/uL (4.60-5.80); White Blood Count 7.4 X10*3/uL (4.8-10.8)
[2025-07-13 06:37] LABS: Anion Gap 11 (12-20); Blood Urea Nitrogen 14 mg/dL (9-16); Calcium 8.7 mg/dL (8.4-10.2); Carbon Dioxide 19 mmol/L (22-29); Chloride 105 mmol/L (96-108); Creatinine Clr Calc Pharmacy 46.3; Estimated Glomerular Filt Rate > 60; Potassium 4.1 mmol/L (3.3-5.1); Sodium 131 mmol/L (135-145)
--- NOTE | 2025-07-13 07:15 | P.PNIM_ITS ---
Subjective Subjective Date of Service: 07/13/25 Physical Exam 2 Vital Signs: Vital Signs: Last Vital Signs Temp 97.8 F 07/13/25 04:00 Pulse 66 07/13/25 04:00 Resp 18 07/13/25 04:00 BP 140/90 H 07/13/25 04:00 Pulse Ox 98 07/13/25 04:00 O2 Del Method Room Air 07/13/25 04:00 BMI result Body Mass Index 24.0 Objective Data Active Medications Acetaminophen (Acetaminophen 325 Mg Tablet) 650 mg PO Q6H PRN PRN Reason: Pain, Mild 1-3,fever,headache Calcium Carbonate (Calcium Carbonate 750 Mg Tab.Chew) 750 mg PO Q4H PRN PRN Reason: Heartburn Colchicine (Colchicine 0.6 Mg Tablet) 0.6 mg PO DAILY LEONEL Cefepime HCl (Maxipime) 2 gm in 50 mls @ 100 mls/hr IV Q12H [facility] Last Infusion: 07/13/25 04:29 Dose: Infused Documented By: ALEXANDRA Magnesium Hydroxide (Milk Of Magnesia 30 Ml Oral.Susp) 30 ml PO DAILY PRN PRN Reason: Constipation Melatonin (Melatonin 3 Mg Tablet) 6 mg PO BEDTIME PRN PRN Reason: Insomnia Last Admin: 07/12/25 19:40 Dose: 6 mg Documented By: ALEXANDRA Morphine Sulfate (Morphine Sulfate 2 Mg/Ml Cartridge) 1 mg IVPUSH Q4H PRN; Protocol PRN Reason: Pain, Severe (Pain Scale 7-10) Last Admin: 07/12/25 20:02 Dose: 1 mg Documented By: ALEXANDRA Ondansetron HCl (Ondansetron Hcl 4 Mg/2 Ml Vial) 4 mg IVPUSH Q8H PRN PRN Reason: Nausea and Vomiting Sodium Chloride (0.9 % Sodium Chloride Flush 3 Ml Syringe) 3 ml IVFLUSH QSHIFT [facility] Last Admin: 07/12/25 19:40 Dose: 3 ml Documented By: ALEXANDRA Labs 07/13/25 06:06 07/13/25 06:06 Labs: Laboratory Results - last 24 hr 07/11/25 07/13/25 23:17 06:06 MCV 103.9 H MCH 34.9 H MCHC 33.6 RDW 12.2 Plt Count 106 L MPV 10.3 Absolute Nucleated RBC 0.000 Nucleated RBC % (auto) 0.0 Anion Gap 11 L Estim Creat Clear Calc 46.3 Estimated GFR > 60 Random Glucose 135 H Uric Acid 6.3 Calcium 8.7 Microbiology Microbiology Results: Microbiology 07/12/25 04:10 Blood Culture - Preliminary Blood - Subclavian No growth after 24 hours. 07/12/25 03:57 Blood Culture - Preliminary Blood - Subclavian No growth after 24 hours. 07/12/25 08:38 Gram Stain - Final Knee,Left Anaerobic Culture - Final Joint Fluid Culture - Final 07/12/25 01:29 Gram Stain - Final Knee aspirate Gross Specimen Examination - Final Fluid Crystals - Final Quality Stroke Does the patient have a stroke diagnosis?: No VTE Prior VTE?: No VTE Risk Level:: Medical - moderate - high VTE Device Contraindication: Treatment Not Indicated VTE Drug Contraindication: N/A - Med Ordered
[2025-07-13 07:55] VITALS: BP 160/87; PULSE 94; RESP 18; TEMP 36.7; O2SAT 98
[2025-07-13] MEDS: 0.9 % Sodium Chloride Flush 3 ML SYRINGE IVFLUSH ×3 (09:31→22:35)
--- NOTE | 2025-07-13 11:49 | P.DS_ITS ---
DS: Providers Provider Date of Service: 07/13/25 Date of admission: 07/12/25 06:27 Date of discharge: 07/13/25 Primary care physician: Krystyna Self MD Consults: 07/12/25 06:26 Consult to Orthopedics Routine Consulting Provider: [facility] [place] [facility] Reason for consultation: ? Septic arthritis Has provider been notified: Yes DS: Diagnosis Discharge Diagnosis (1) Effusion, left knee: Status: Acute DS: Summary Hospital Course Hospital Course: Acute on chronic severe left knee effusion likely secondary to I CCP crystals suggestive of pseudogout. Septic arthritis ruled out with ascitic tap Severe osteoarthritis at baseline needs outpatient management by Orthopedics Multiple falls for over 2 years, cognitive decline, failure to thrive reported by daughter 85-year-old man with PMH notable for severe advanced dementia, frailty in elderly, severe left knee osteoarthritis, chronic falls for the past 2 years, CKD stage IIIA, paroxysmal AFib on Xarelto, HLD, statin, HTN who was admitted with left knee pain and swelling noted to have moderate to large effusion and asciptic tap resulted as intracellular calcium pyrophosphate crystals. History is limited as patient lives alone, and per daughter, the neighbors kind of check in on him occasionally. She believes he likely fell and has been falling for over 2 years. Patient was evaluated by Orthopedic surgery, per ascitic tap it revealed that he had intracellular calcium pyrophosphate crystals suggestive of pseudogout. Anaerobic culture pending at the time of this note, no organisms found in g stain. Patient's daughter (Denia. [phone])appears to be quite frustrated with his care-I have explained at length that we have ruled out the most severe infection by checking ascitic tap and based on the result of catch him pyrophosphate crystals, we have deemed it more likely to be a pseudogout, less likely to be gout or septic arthritis. He was treated with cefepime for 2 days until septic out was ruled out. Explained to her why we do not do MRI if not indicated(she demanded an MRI be done). Patient started not receptive of the current idea. Advised the patient to follow up with PCP and Orthopedics outpatient for definitive management of left knee severe osteoarthritis. Reached out to Orthopedics to request to schedule. Follow-up with outpatient orthopedics for ongoing care for severe left knee osteoarthritis which has been ongoing for over 2 years per daughter Follow-up with primary care regarding physical therapy and MRI Explained to the patient's daughter at length on 07/13/25 regarding why we are not ordering an MRI while inpatient as it is not indicated, and we go based off of history and since the patient lives with his significant other and is a poor historian baseline and continues to have deconditioning, we have advised the daughter that likely needs to request and f/up with PCP for ongoing care needs. Daughter appears frustrated that no one is doing anything for him also I explained to her that we he received appropriate treatment. He was initially on antibiotics for what we consider a septic arthritis. Advised the patient's daughter to seek help for his dementia care, ongoing needs and emphasized with her as much as I could. My colleague, Dr. Laguerre was witnessed the entire conversation For significant pain, we are discharging him with scheduled Tylenol, Robaxin, lidocaine, advised the patient to elevate the leg, rest and ice and p.r.n. oxycodone for 3 days. We have initiated colchicine given the severity of his CP PD arthritis with careful consideration that he can not use NSAIDs given his CKD 3. If he is needing more, needs to follow up with primary care. Patient's pain is likely in the setting of severe OA. CKD stage 3A Baseline NSAIDs limited in the setting of CKD stage 3 for the treatment of pseudogout Paroxysmal atrial fibrillation Continue Xarelto and metoprolol Hyperlipidemia Statin Elevated blood pressure reading Likely secondary to pain DVT prophylaxis with Xarelto Full code HCP invoked This note is constructed using voice recognition software. While every effort has been made to ensure accuracy, marksmanship instructor errors may have been included. Time spent discussing smoking cessation with patient: more than 10 minutes Status at Discharge Functional status at discharge: bed bound Overall status at discharge: patient is not back to baseline Time Attestation Discharge Coordination Time (in mins): 35 Quality: Safe Use of Opioids Does Pt have an Active Cancer Diagnosis on the Problem List?: No Quality: Stroke Does the patient have a stroke diagnosis?: No Physical Exam Vital Signs: Vital Signs: Last Vital Signs Temp 98.0 F 07/13/25 07:55 Pulse 94 07/13/25 07:55 Resp 18 07/13/25 07:55 BP 160/87 H 07/13/25 07:55 Pulse Ox 98 07/13/25 07:55 O2 Del Method Room Air 07/13/25 07:55 BMI result Body Mass Index 24.0 DS: Data Data Completed and Pending Completed studies during hospitalization [Text1]: Procedures Detoxification Services for Substance Abuse Treatment (09/12/20) Labs on day of discharge: Laboratory Results - last 24 hr 07/13/25 06:06 WBC 7.4 RBC 3.61 L Hgb 12.6 L Hct 37.5 L MCV 103.9 H MCH 34.9 H MCHC 33.6 RDW 12.2 Plt Count 106 L MPV 10.3 Absolute Nucleated RBC 0.000 Nucleated RBC % (auto) 0.0 Sodium 131 L Potassium 4.1 Chloride 105 Carbon Dioxide 19 L Anion Gap 11 L BUN 14 Creatinine 1.11 Estim Creat Clear Calc 46.3 Estimated GFR > 60 Random Glucose 135 H Calcium 8.7 Preliminary micro results at discharge 07/12/25 01:29 Anaerobic Culture - Preliminary Knee aspirate No growth to date. Joint Fluid Culture - Preliminary No growth after 1 day 07/12/25 04:10 Blood Culture - Preliminary Blood - Subclavian No growth after 24 hours. 07/12/25 03:57 Blood Culture - Preliminary Blood - Subclavian No growth after 24 hours. Discharge Plan Discharge Anticipated Discharge Date/Time: 07/13/25 11:35 Patient Disposition: Xfer SNF Discharge Diagnosis: Pseudogout, septic arthritis ruled out Referrals: Krystyna Self MD [Primary Care Provider, Internal Medicine] - 1 Week Discharge Medications: New acetaminophen [Tylenol Arthritis Pain] 650 mg tablet extended release 650 mg PO Q8H 30 Days Qty: 90 0RF methocarbamol 750 mg tablet 750 mg PO Q8H 7 Days Qty: 21 0RF lidocaine [Aspercreme (lidocaine)] 4 % adhesive patch,medicated 2 patch topical Q24H Qty: 5 0RF Rx Instructions: may leave on for up to 12 hrs oxycodone 5 mg capsule 5 mg PO Q8H PRN (Reason: pain) 3 Days Qty: 10 0RF Rx Instructions: Partial Fill upon patient request. prednisone 5 mg tablet 5 mg PO DAILY Qty: 10 0RF colchicine 0.6 mg capsule 0.6 mg PO DAILY Qty: 30 3RF Continued metoprolol tartrate 50 mg tablet 50 mg PO BID Qty: 180 3RF ketorolac 0.5 % drops 1 drp ophthalmic (eye) TID Xarelto 15 mg tablet 15 mg PO DAILY Qty: 30 5RF Rx Instructions: must administer with evening meal atorvastatin 10 mg tablet 10 mg PO DAILY Qty: 30 5RF Discharge Orders: Discharge Order (Routine); Ordered 07/13/25 Ordered By: Marilee Templeton Diet: Low salt diet Activity on Discharge: As tolerated Stand Alone Forms: Patient Portal Discharge page Print Language: Telugu Care Plan Goals: Follow-up with outpatient orthopedics for ongoing care for severe left knee osteoarthritis which has been ongoing for over 2 years per daughter Follow-up with primary care regarding physical therapy and MRI Explained to the patient's daughter at length regarding why we are not ordering an MRI while inpatient as it is not indicated, and we go based off of history and since the patient lives with his significant other and is a poor historian baseline and continues to have deconditioning, we have advised the daughter that likely needs to look for placement. Daughter appears frustrated that no one is doing anything for him also I explained to her that we he received appropriate treatment. He was initially on antibiotics for what we consider a septic arthritis. Advised the patient's daughter to seek help for his dementia care, ongoing needs and emphasized with her as much as I could. My colleague, Dr. Laguerre was witnessed the entire conversation For significant pain, we are discharging him with scheduled Tylenol, Robaxin, lidocaine, advised the patient to elevate the leg, rest and ice and p.r.n. oxycodone for 3 days. 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 If he is needing more, needs to follow up with primary care. Patient's pain is likely in the setting of severe OA. Health Concerns: See above Plan of Treatment: See above Assessment: See Patient Instructions: Osteoarthritis (DC), Pseudogout (GEN)
[2025-07-13] MEDS: Rivaroxaban 15 MG TABLET PO (12:18)
[2025-07-13] MEDS: oxyCODONE HCl Immed Release 5 MG TABLET PO (13:15)
--- NOTE | 2025-07-13 13:52 | MHC.CM.PN ---
[facility] REVIEWED AND PER MD ROUNDS, PT IS MEDICALLY CLEARED FOR DC TO STR. [facility] FOUND TO NOT BE CONTRACTED WITH INSURANCE PLAN , [facility] ([facility]) UNABLE TO ACCEPT. DAUGHTER/HCP DIANDRA ACCEPTS A BED AT [facility] (CONTRACTED WITH INSURANCE) [facility] WILL START AUTH PROCESS. MD/RN AWARE. CM WILL AWAIT AUTH.
--- NOTE | 2025-07-13 15:26 | HO.PM.IMPN ---
Subjective Subjective Date of Service: 07/13/25 Interval History: Limited secondary to patient's baseline dementia Patient does not appear to be in distress Left knee swelling appears to have gone down with the treatment We will continue colchicine and pain regimen Patient only appears to have pain with movement Review of Systems Review of Systems: Yes Unobtainable due to mental condition and Unobtainable due to mental status Physical Exam Exam: Exam: L knee in a wrap Vital Signs: Vital Signs: Last Vital Signs Temp 98.0 F 07/13/25 07:55 Pulse 94 07/13/25 07:55 Resp 18 07/13/25 07:55 BP 160/87 H 07/13/25 07:55 Pulse Ox 98 07/13/25 07:55 O2 Del Method Room Air 07/13/25 07:55 BMI result Body Mass Index 24.0 Const: General: cooperative, healthy appearing and comfortable Extrem: Other: Left knee hemarthrosis No redness or warmth Mild discomfort with ROm Calf supple non tender NVI Objective Data Active Medications Acetaminophen (Acetaminophen 325 Mg Tablet) 650 mg PO Q6H PRN PRN Reason: Pain, Mild 1-3,fever,headache Atorvastatin Calcium (Atorvastatin Calcium 10 Mg Tablet) 10 mg PO DAILY [facility] Calcium Carbonate (Calcium Carbonate 750 Mg Tab.Chew) 750 mg PO Q4H PRN PRN Reason: Heartburn Celecoxib (Celecoxib 200 Mg Capsule) 200 mg PO BID [facility] Ketorolac Tromethamine (Ketorolac Tromethamine 0.5% Op 5 Ml Drops) 1 drop EYE-BOTH TID [facility] Magnesium Hydroxide (Milk Of Magnesia 30 Ml Oral.Susp) 30 ml PO DAILY PRN PRN Reason: Constipation Melatonin (Melatonin 3 Mg Tablet) 6 mg PO BEDTIME PRN PRN Reason: Insomnia Last Admin: 07/12/25 19:40 Dose: 6 mg Documented By: ALEXANDRA Metoprolol Tartrate (Metoprolol Tartrate 50 Mg Tablet) 50 mg PO BID [facility]; Protocol Last Admin: 07/13/25 12:18 Dose: 50 mg Documented By: ARNULFO Ondansetron HCl (Ondansetron Hcl 4 Mg/2 Ml Vial) 4 mg IVPUSH Q8H PRN PRN Reason: Nausea and Vomiting Oxycodone HCl (Oxycodone Hcl Immed Release 5 Mg Tablet) 5 mg PO Q4H PRN PRN Reason: Pain, Mild 1-3,fever,headache Last Admin: 07/13/25 13:15 Dose: 5 mg Documented By: DABA Rivaroxaban (Rivaroxaban 15 Mg Tablet) 15 mg PO DAILY [facility] Last Admin: 07/13/25 12:18 Dose: 15 mg Documented By: DABA Sodium Chloride (0.9 % Sodium Chloride Flush 3 Ml Syringe) 3 ml IVFLUSH QSHIFT [facility] Last Admin: 07/13/25 09:31 Dose: 3 ml Documented By: DABA Labs 07/13/25 06:06 07/13/25 06:06 Labs: Laboratory Results - last 24 hr 07/13/25 06:06 MCV 103.9 H MCH 34.9 H MCHC 33.6 RDW 12.2 Plt Count 106 L MPV 10.3 Absolute Nucleated RBC 0.000 Nucleated RBC % (auto) 0.0 Anion Gap 11 L Estim Creat Clear Calc 46.3 Estimated GFR > 60 Random Glucose 135 H Calcium 8.7 Microbiology Microbiology Results: Microbiology 07/12/25 01:29 Gram Stain - Final Knee aspirate Anaerobic Culture - Preliminary No growth to date. Gross Specimen Examination - Final Fluid Crystals - Final Joint Fluid Culture - Preliminary No growth after 1 day 07/12/25 04:10 Blood Culture - Preliminary Blood - Subclavian No growth after 24 hours. 07/12/25 03:57 Blood Culture - Preliminary Blood - Subclavian No growth after 24 hours. 07/12/25 08:38 Gram Stain - Final Knee,Left Anaerobic Culture - Final Joint Fluid Culture - Final Assessment and Plan (1) Pseudogout of left knee: Status: Acute Plan Acute on chronic severe left knee effusion likely secondary to ICCP crystals suggestive of pseudogout. Septic arthritis ruled out with ascitic tap Severe osteoarthritis at baseline needs outpatient management by Orthopedics Multiple falls for over 2 years, cognitive decline, failure to thrive reported by daughter 85-year-old man with PMH notable for severe advanced dementia, frailty in elderly, severe left knee osteoarthritis, chronic falls for the past 2 years, CKD stage IIIA, paroxysmal AFib on Xarelto, HLD, statin, HTN who was admitted with left knee pain and swelling noted to have moderate to large effusion and asciptic tap resulted as intracellular calcium pyrophosphate crystals. History is limited as patient lives alone, and per daughter, the neighbors kind of check in on him occasionally. She believes he likely fell and has been falling for over 2 years. Patient was evaluated by Orthopedic surgery, per ascitic tap it revealed that he had intracellular calcium pyrophosphate crystals suggestive of pseudogout. Anaerobic culture pending at the time of this note, no organisms found in g stain. Patient's daughter (Denia. [phone])appears to be quite frustrated with his care-I have explained at length that we have ruled out the most severe infection by checking ascitic tap and based on the result of catch him pyrophosphate crystals, we have deemed it more likely to be a pseudogout, less likely to be gout or septic arthritis. He was treated with cefepime for 2 days until septic out was ruled out. Explained to her why we do not do MRI if not indicated(she demanded an MRI be done). Patient started not receptive of the current idea. Advised the patient to follow up with PCP and Orthopedics outpatient for definitive management of left knee severe osteoarthritis. Reached out to Orthopedics to request to schedule. Follow-up with outpatient orthopedics for ongoing care for severe left knee osteoarthritis which has been ongoing for over 2 years per daughter Follow-up with primary care regarding physical therapy and MRI Explained to the patient's daughter at length on 07/13/25 regarding why we are not ordering an MRI while inpatient as it is not indicated, and we go based off of history and since the patient lives with his significant other and is a poor historian baseline and continues to have deconditioning, we have advised the daughter that likely needs to request and f/up with PCP for ongoing care needs. Daughter appears frustrated that no one is doing anything for him also I explained to her that we he received appropriate treatment. He was initially on antibiotics for what we consider a septic arthritis. Advised the patient's daughter to seek help for his dementia care, ongoing needs and emphasized with her as much as I could. My colleague, Dr. Laguerre was witnessed the entire conversation. For significant pain, rx him with scheduled Tylenol, Robaxin, lidocaine, advised the patient to elevate the leg, rest and ice and p.r.n. oxycodone for 3 days. 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 If he is needing more, needs to follow up with primary care. Patient's pain is likely in the setting of severe OA. PT/OT STR Cont cochicine started yest CKD stage 3A Baseline NSAIDs limited in the setting of CKD stage 3 for the treatment of pseudogout Paroxysmal atrial fibrillation Continue Xarelto and metoprolol Hyperlipidemia Statin Elevated blood pressure reading Likely secondary to pain DVT prophylaxis with Xarelto Full code HCP invoked This note is constructed using voice recognition software. While every effort has been made to ensure accuracy, database security expert errors may have been included. Time spent discussing smoking cessation with patient: more than 10 minutes Quality Stroke Does the patient have a stroke diagnosis?: No VTE Prior VTE?: No VTE Risk Level:: Medical - moderate - high VTE Device Contraindication: Treatment Not Indicated VTE Drug Contraindication: N/A - Med Ordered
[2025-07-13 15:31] VITALS: BP 135/92; PULSE 64; RESP 18; TEMP 36.7; O2SAT 100
[2025-07-13] MEDS: Ketorolac Tromethamine 0.5% Op 5 ML DROPS 1 DROP EYE-BOTH ×2 (16:07→22:35)
[2025-07-13 19:39] VITALS: BP 135/79; PULSE 85; RESP 18; TEMP 36.8; O2SAT 97
[2025-07-13 22:00] VITALS: BP 137/82; PULSE 73
[2025-07-14 04:00] VITALS: BP 140/60; PULSE 70; RESP 18; TEMP 36.1; O2SAT 100
[2025-07-14 06:09] LABS: MANUAL DIFF FLAG NO
[2025-07-14 06:21] LABS: Hematocrit 37.4 % (42.0-52.0); Hemoglobin 12.4 g/dl (14.0-18.0); INTERNATIONAL NORM RATIO 2.0 (0.9-1.1); Imm Gran Abs Auto 0.01 X10*3/uL (0.00-0.03); Imm Gran Pct Auto 0.2 % (0.0-0.4); Lymphocytes Absolute Auto 1.1 X10*3/uL (1.2-4.9); Mean Corpuscular HGB Conc 33.2 g/dl (31.0-36.0); Mean Corpuscular Hemoglobin 34.5 pg (27.0-33.0); Mean Corpuscular Volume 104.2 fL (80.0-98.0); NRBC Abs Auto 0.000 X10*3/uL (0.0-0.012); NRBC Pct Auto 0.0 /100WBC (0.0-0.2); Platelet Count 115 X10*3/uL (160-400); Prothrombin Time 22.9 SEC (10.9-12.4); Red Blood Count 3.59 X10*6/uL (4.60-5.80); White Blood Count 5.0 X10*3/uL (4.8-10.8)
[2025-07-14 06:31] LABS: Alanine Aminotransferase 25 U/L (0-40); Albumin Level 3.4 g/dL (3.5-5.0); Alkaline Phosphatase 84 U/L (39-117); Anion Gap 11 (12-20); Aspartate Amino Transferase 43 U/L (5-37); Blood Urea Nitrogen 22 mg/dL (9-16); Calcium 9.0 mg/dL (8.4-10.2); Carbon Dioxide 23 mmol/L (22-29); Chloride 103 mmol/L (96-108); Creatinine Clr Calc Pharmacy 38.9; Estimated Glomerular Filt Rate 52; Magnesium 2.2 mg/dL (1.6-2.6); Potassium 4.4 mmol/L (3.3-5.1); Sodium 133 mmol/L (135-145); Total Protein 6.7 g/dL (6.5-8.0)
--- NOTE | 2025-07-14 07:10 | HO.PM.IMPN ---
Subjective Subjective Date of Service: 07/14/25 Physical Exam Vital Signs: Vital Signs: Last Vital Signs Temp 97 F 07/14/25 04:00 Pulse 70 07/14/25 04:00 Resp 18 07/14/25 04:00 BP 140/60 H 07/14/25 04:00 Pulse Ox 100 07/14/25 04:00 O2 Del Method Room Air 07/14/25 04:00 BMI result Body Mass Index 24.0 Objective Data Active Medications Acetaminophen (Acetaminophen 325 Mg Tablet) 650 mg PO Q6H PRN PRN Reason: Pain, Mild 1-3,fever,headache Atorvastatin Calcium (Atorvastatin Calcium 10 Mg Tablet) 10 mg PO DAILY [facility] Calcium Carbonate (Calcium Carbonate 750 Mg Tab.Chew) 750 mg PO Q4H PRN PRN Reason: Heartburn Celecoxib (Celecoxib 200 Mg Capsule) 200 mg PO BID [facility] Last Admin: 07/13/25 22:35 Dose: 200 mg Documented By: KINGS Ketorolac Tromethamine (Ketorolac Tromethamine 0.5% Op 5 Ml Drops) 1 drop EYE-BOTH TID [facility] Last Admin: 07/13/25 22:35 Dose: 1 drop Documented By: KINGS Magnesium Hydroxide (Milk Of Magnesia 30 Ml Oral.Susp) 30 ml PO DAILY PRN PRN Reason: Constipation Melatonin (Melatonin 3 Mg Tablet) 6 mg PO BEDTIME PRN PRN Reason: Insomnia Last Admin: 07/13/25 22:35 Dose: 6 mg Documented By: KINGS Comments: requested for sleep Metoprolol Tartrate (Metoprolol Tartrate 50 Mg Tablet) 50 mg PO BID [facility]; Protocol Last Admin: 07/13/25 22:35 Dose: 50 mg Documented By: KINGS Ondansetron HCl (Ondansetron Hcl 4 Mg/2 Ml Vial) 4 mg IVPUSH Q8H PRN PRN Reason: Nausea and Vomiting Oxycodone HCl (Oxycodone Hcl Immed Release 5 Mg Tablet) 5 mg PO Q4H PRN PRN Reason: Pain, Mild 1-3,fever,headache Last Admin: 07/13/25 13:15 Dose: 5 mg Documented By: ARNULFO Rivaroxaban (Rivaroxaban 15 Mg Tablet) 15 mg PO DAILY [facility] Last Admin: 07/13/25 12:18 Dose: 15 mg Documented By: ARNULFO Sodium Chloride (0.9 % Sodium Chloride Flush 3 Ml Syringe) 3 ml IVFLUSH QSHIFT [facility] Last Admin: 07/13/25 22:35 Dose: 3 ml Documented By: KINGS Labs 07/14/25 05:33 07/14/25 05:33 Labs: Laboratory Results - last 24 hr 07/14/25 05:33 MCV 104.2 H MCH 34.5 H MCHC 33.2 RDW 12.1 Plt Count 115 L MPV 10.2 Immature Gran % (Auto) 0.2 Neut % (Auto) 66.7 Lymph % (Auto) 22.2 [place] % (Auto) 7.1 Eos % (Auto) 3.2 Baso % (Auto) 0.6 Lymph # (Auto) 1.1 L [place] # (Auto) 0.4 Eos # (Auto) 0.2 Baso # (Auto) 0.0 Abs Immat Gran (auto) 0.01 Absolute Neuts (auto) 3.3 Absolute Nucleated RBC 0.000 Nucleated RBC % (auto) 0.0 PT 22.9 H D INR 2.0 H Anion Gap 11 L Estim Creat Clear Calc 38.9 Estimated GFR 52 Random Glucose 106 Calcium 9.0 Magnesium 2.2 Total Bilirubin 1.2 H AST 43 H ALT 25 Alkaline Phosphatase 84 Total Protein 6.7 Albumin 3.4 L Microbiology Microbiology Results: Microbiology 07/12/25 04:10 Blood Culture - Preliminary Blood - Subclavian No growth after 48 hours. 07/12/25 03:57 Blood Culture - Preliminary Blood - Subclavian No growth after 48 hours. 07/12/25 01:29 Gram Stain - Final Knee aspirate Anaerobic Culture - Preliminary No growth to date. Gross Specimen Examination - Final Fluid Crystals - Final Joint Fluid Culture - Preliminary No growth after 1 day Quality Stroke Does the patient have a stroke diagnosis?: No VTE Prior VTE?: No VTE Risk Level:: Medical - moderate - high VTE Device Contraindication: Treatment Not Indicated VTE Drug Contraindication: N/A - Med Ordered
[2025-07-14 08:00] VITALS: BP 128/72; PULSE 80; RESP 18; TEMP 36.4; O2SAT 97
--- NOTE | 2025-07-14 08:07 | PC.NURSE ---
End of Shift Nursing Note 0600. Pt resting comfortably throughout the night, VSS denying pain and sleeping well with Melatonin provided per patient request. Pt alert oriented x3, forgetful to age but easily reoriented as Teo Razo [facility] chrome tanner utilized for assessment, care and medications. Left knee elevated on pillows as knee is swollen with nasir wrap dressing CDI. Pt denying pain throughout the shift and reports sleeping well during night.
[2025-07-14] MEDS: Rivaroxaban 15 MG TABLET PO (08:23)
[2025-07-14] MEDS: Phytonadione (Vit K1) Oral 10 MG/ML AMPUL PO (08:23)
[2025-07-14] MEDS: Ketorolac Tromethamine 0.5% Op 5 ML DROPS 1 DROP EYE-BOTH (09:33)
[2025-07-14] MEDS: 0.9 % Sodium Chloride Flush 3 ML SYRINGE IVFLUSH (09:34)
--- NOTE | 2025-07-14 13:45 | P.DS_ITS ---
DS: Providers Provider Date of Service: 07/14/25 Date of admission: 07/12/25 06:27 Date of discharge: 07/14/25 Primary care physician: Krystyna Self MD Consults: 07/12/25 06:26 Consult to Orthopedics Routine Consulting Provider: [facility] [place] Reason for consultation: ? Septic arthritis Has provider been notified: Yes DS: Diagnosis Discharge Diagnosis (1) Pseudogout of left knee: Status: Acute DS: Summary Hospital Course Hospital Course: Acute on chronic severe left knee effusion likely secondary to I CCP crystals suggestive of pseudogout. Septic arthritis ruled out with ascitic tap Severe osteoarthritis at baseline needs outpatient management by Orthopedics Multiple falls for over 2 years, cognitive decline, failure to thrive reported by daughter 85-year-old man with PMH notable for severe advanced dementia, frailty in elderly, severe left knee osteoarthritis, chronic falls for the past 2 years, CKD stage IIIA, paroxysmal AFib on Xarelto, HLD, statin, HTN who was admitted with left knee pain and swelling noted to have moderate to large effusion and asciptic tap resulted as intracellular calcium pyrophosphate crystals. History is limited as patient lives alone, and per daughter, the neighbors kind of check in on him occasionally. She believes he likely fell and has been falling for over 2 years. Patient was evaluated by Orthopedic surgery, per ascitic tap it revealed that he had intracellular calcium pyrophosphate crystals suggestive of pseudogout. Anaerobic culture pending at the time of this note, no organisms found in g stain. Patient's daughter (Denia. [phone])appears to be quite frustrated with his care-I have explained at length that we have ruled out the most severe infection by checking ascitic tap and based on the result of catch him pyrophosphate crystals, we have deemed it more likely to be a pseudogout, less likely to be gout or septic arthritis. He was treated with cefepime for 2 days until septic out was ruled out. Explained to her why we do not do MRI if not indicated(she demanded an MRI be done). Patient started not receptive of the current idea. Advised the patient to follow up with PCP and Orthopedics outpatient for definitive management of left knee severe osteoarthritis. Reached out to Orthopedics to request to schedule. Follow-up with outpatient orthopedics for ongoing care for severe left knee osteoarthritis which has been ongoing for over 2 years per daughter Follow-up with primary care regarding physical therapy and MRI Explained to the patient's daughter at length on 07/13/25 regarding why we are not ordering an MRI while inpatient as it is not indicated, and we go based off of history and since the patient lives with his significant other and is a poor historian baseline and continues to have deconditioning, we have advised the daughter that likely needs to request and f/up with PCP for ongoing care needs. Daughter appears frustrated that no one is doing anything for him also I explained to her that we he received appropriate treatment. He was initially on antibiotics for what we consider a septic arthritis. Advised the patient's daughter to seek help for his dementia care, ongoing needs and emphasized with her as much as I could. My colleague, Dr. Laguerre was witnessed the entire conversation For significant pain, rx him with scheduled Tylenol, Robaxin, lidocaine, advised the patient to elevate the leg, rest and ice and p.r.n. oxycodone for 3 days. 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 If he is needing more, needs to follow up with primary care. Patient's pain is likely in the setting of severe OA. PT/OT STR Cont cochicine started yest CKD stage 3A - Baseline- NSAIDs limited in the setting of CKD stage 3 for the treatment of pseudogout Paroxysmal atrial fibrillation- Continue Xarelto and metoprolol Hyperlipidemia - Statin Elevated blood pressure reading - Likely secondary to pain DVT prophylaxis with Xarelto Full code HCP invoked This note is constructed using voice recognition software. While every effort has been made to ensure accuracy, anesthesiology fellow errors may have been included. Status at Discharge Functional status at discharge: bed bound (2/2 severe OA) Time Attestation Discharge Coordination Time (in mins): 35 Quality: Safe Use of Opioids Does Pt have an Active Cancer Diagnosis on the Problem List?: No Quality: Stroke Does the patient have a stroke diagnosis?: No Physical Exam Vital Signs: Vital Signs: Last Vital Signs Temp 97.5 F 07/14/25 08:00 Pulse 80 07/14/25 08:00 Resp 18 07/14/25 08:00 BP 128/72 07/14/25 08:00 Pulse Ox 97 07/14/25 08:00 O2 Del Method Room Air 07/14/25 08:00 BMI result Body Mass Index 24.0 DS: Data Data Completed and Pending Completed studies during hospitalization [Text1]: Procedures Detoxification Services for Substance Abuse Treatment (09/12/20) Labs on day of discharge: Laboratory Results - last 24 hr 07/14/25 05:33 WBC 5.0 RBC 3.59 L Hgb 12.4 L Hct 37.4 L MCV 104.2 H MCH 34.5 H MCHC 33.2 RDW 12.1 Plt Count 115 L MPV 10.2 Immature Gran % (Auto) 0.2 Neut % (Auto) 66.7 Lymph % (Auto) 22.2 [place] % (Auto) 7.1 Eos % (Auto) 3.2 Baso % (Auto) 0.6 Lymph # (Auto) 1.1 L [place] # (Auto) 0.4 Eos # (Auto) 0.2 Baso # (Auto) 0.0 Abs Immat Gran (auto) 0.01 Absolute Neuts (auto) 3.3 Absolute Nucleated RBC 0.000 Nucleated RBC % (auto) 0.0 PT 22.9 H D INR 2.0 H Sodium 133 L Potassium 4.4 Chloride 103 Carbon Dioxide 23 Anion Gap 11 L BUN 22 H Creatinine 1.32 Estim Creat Clear Calc 38.9 Estimated GFR 52 Random Glucose 106 Calcium 9.0 Magnesium 2.2 Total Bilirubin 1.2 H AST 43 H ALT 25 Alkaline Phosphatase 84 Total Protein 6.7 Albumin 3.4 L Preliminary micro results at discharge 07/12/25 01:29 Anaerobic Culture - Preliminary Knee aspirate No growth to date. 07/12/25 04:10 Blood Culture - Preliminary Blood - Subclavian No growth after 48 hours. 07/12/25 03:57 Blood Culture - Preliminary Blood - Subclavian No growth after 48 hours. Discharge Plan Discharge Anticipated Discharge Date/Time: 07/14/25 13:44 Patient Disposition: Xfer SNF Discharge Diagnosis: Pseudogout, septic arthritis ruled out [facility]Outside] - 1 Week Referral Note: TRANSFER FOR SHORT TERM REHAB Krystyna Self MD [Primary Care Provider, Internal Medicine] - 1 Week Ji Suh MD [Physician, Orthopedics] - 1 Week Discharge Medications: New acetaminophen [Tylenol Arthritis Pain] 650 mg tablet extended release 650 mg PO Q8H 30 Days Qty: 90 0RF methocarbamol 750 mg tablet 750 mg PO Q8H 7 Days Qty: 21 0RF lidocaine [Aspercreme (lidocaine)] 4 % adhesive patch,medicated 2 patch topical Q24H Qty: 5 0RF Rx Instructions: may leave on for up to 12 hrs oxycodone 5 mg capsule 5 mg PO Q8H PRN (Reason: pain) 3 Days Qty: 10 0RF Rx Instructions: Partial Fill upon patient request. prednisone 5 mg tablet 5 mg PO DAILY Qty: 10 0RF colchicine 0.6 mg capsule 0.6 mg PO DAILY Qty: 30 3RF Continued metoprolol tartrate 50 mg tablet 50 mg PO BID Qty: 180 3RF ketorolac 0.5 % drops 1 drp ophthalmic (eye) TID Xarelto 15 mg tablet 15 mg PO DAILY Qty: 30 5RF Rx Instructions: must administer with evening meal atorvastatin 10 mg tablet 10 mg PO DAILY Qty: 30 5RF Discharge Orders: Discharge Order (Routine); Ordered 07/14/25 Ordered By: Marilee Templeton Diet: Low salt diet Activity on Discharge: As tolerated Stand Alone Forms: Patient Portal Discharge page Print Language: Mongolian Care Plan Goals: Follow-up with outpatient orthopedics for ongoing care for severe left knee osteoarthritis which has been ongoing for over 2 years per daughter Follow-up with primary care regarding physical therapy and MRI Explained to the patient's daughter at length regarding why we are not ordering an MRI while inpatient as it is not indicated, and we go based off of history and since the patient lives with his significant other and is a poor historian baseline and continues to have deconditioning, we have advised the daughter that likely needs to look for placement. Daughter appears frustrated that no one is doing anything for him also I explained to her that we he received appropriate treatment. He was initially on antibiotics for what we consider a septic arthritis. Advised the patient's daughter to seek help for his dementia care, ongoing needs and emphasized with her as much as I could. My colleague, Dr. Laguerre was witnessed the entire conversation For significant pain, we are discharging him with scheduled Tylenol, Robaxin, lidocaine, advised the patient to elevate the leg, rest and ice and p.r.n. oxycodone for 3 days. 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 If he is needing more, needs to follow up with primary care. Patient's pain is likely in the setting of severe OA. Health Concerns: See above Plan of Treatment: See above Assessment: See Patient Instructions: Osteoarthritis (DC), Pseudogout (GEN)
--- NOTE | 2025-07-14 14:10 | MHC.CM.PN ---
DP: PT HAS BEEN MEDICALLY CLEARED FOR DC TO STR AT [facility]. [facility] HAS OBTAINED INSURANCE AUTH FROM [facility]. BLS TRANSPORT BOOKED FOR 2 PM VIA [facility]. RN/PROVIDER AWARE. HCP DIANDRA UPDATED VIA PHONE MESSAGE AND AWARE AT BEDSIDE.
[2025-07-14 14:20] VITALS: BP 113/61; PULSE 70; RESP 18; TEMP 36.2; O2SAT 97
== END 2025-07-14 14:25 | disposition skilled nursing facility (03) | DRG 554 ==
LOC: HO.ED 07-12 02:35 → HO.EDOVER 07-12 06:49 → HO.S3 07-12 07:11
PROVIDERS: Emergency Medicine Emergency Medical Services; Nurse Practitioner Acute Care; Admitting Provider Internal Medicine; Emergency Provider Emergency Medicine; PCP Internal Medicine; Visit Provider Student in an Organized Health Care Education/Training Program
DX: M11.262 Other chondrocalcinosis, left knee (principal); M17.12 Unilateral primary osteoarthritis, left knee; N18.31 Chronic kidney disease, stage 3a; I48.0 Paroxysmal atrial fibrillation; E78.5 Hyperlipidemia, unspecified; R03.0 Elevated blood-pressure reading, without diagnosis of hypertension; F03.90 Unspecified dementia, unspecified severity, without behavioral disturbance, psychotic disturbance, mood disturbance, and anxiety; Z79.899 Other long term (current) drug therapy
CPT/HCPCS: 36415; 70450; 72125; 73700; 80048; 80053; 83605; 83735; 84484; 84550; 85025; 85027; 85610; 85652; 86140; 87040; 87070; 87073; 87205; 89051; 89060; 93005; 97110; 97162; 97530; 99285; J0692; J2004; J2270; J3374

== ENCOUNTER → 2025-07-11 23:19 | Outpatient (BNV) | payer MEDICARE, SELFPAY | PROVIDERS: Admitting Provider Internal Medicine; Emergency Provider Emergency Medicine; PCP Internal Medicine; Visit Provider Internal Medicine Cardiovascular Disease | DX: I48.91 Unspecified atrial fibrillation (principal) | CPT/HCPCS: 93010 ==

== ENCOUNTER → 2025-07-11 23:36 | Outpatient (BNV) | payer MEDICARE, SELFPAY | PROVIDERS: Emergency Provider Emergency Medicine Emergency Medical Services; PCP Internal Medicine; Visit Provider Radiology Diagnostic Radiology | DX: M48.02 Spinal stenosis, cervical region (principal); M71.22 Synovial cyst of popliteal space [Baker], left knee; M23.42 Loose body in knee, left knee; S09.90XA Unspecified injury of head, initial encounter | CPT/HCPCS: 70450; 72125; 73700 ==

== ENCOUNTER → 2025-07-12 06:27 | Outpatient (BNV) | payer MEDICARE, SELFPAY | PROVIDERS: Admitting Provider Internal Medicine; Emergency Provider Emergency Medicine; PCP Internal Medicine; Visit Provider Physician Assistant | DX: M25.462 Effusion, left knee (principal) | CPT/HCPCS: 99221 ==

== ENCOUNTER → 2025-07-12 06:27 | Outpatient (BNV) | payer MEDICARE, SELFPAY | PROVIDERS: Admitting Provider Internal Medicine; Emergency Provider Emergency Medicine; PCP Internal Medicine; Visit Provider Student in an Organized Health Care Education/Training Program | DX: M17.12 Unilateral primary osteoarthritis, left knee (principal); M25.462 Effusion, left knee; M11.262 Other chondrocalcinosis, left knee | CPT/HCPCS: 99223; 99232 ==

== ENCOUNTER 2025-08-16 06:33 | Outpatient (REF) | payer MEDICARE, SELFPAY ==
[2025-08-16 06:51] LABS: MANUAL DIFF FLAG NO
[2025-08-16 07:24] LABS: Hematocrit 41.2 % (42.0-52.0); Hemoglobin 13.9 g/dl (14.0-18.0); Imm Gran Abs Auto 0.01 X10*3/uL (0.00-0.03); Imm Gran Pct Auto 0.2 % (0.0-0.4); Lymphocytes Absolute Auto 1.3 X10*3/uL (1.2-4.9); Mean Corpuscular HGB Conc 33.7 g/dl (31.0-36.0); Mean Corpuscular Hemoglobin 35.1 pg (27.0-33.0); Mean Corpuscular Volume 104.0 fL (80.0-98.0); NRBC Abs Auto 0.000 X10*3/uL (0.0-0.012); NRBC Pct Auto 0.0 /100WBC (0.0-0.2); Platelet Count 148 X10*3/uL (160-400); Red Blood Count 3.96 X10*6/uL (4.60-5.80); White Blood Count 5.1 X10*3/uL (4.8-10.8)
[2025-08-16 07:53] LABS: Alanine Aminotransferase 19 U/L (0-40); Albumin Level 3.9 g/dL (3.5-5.0); Alkaline Phosphatase 100 U/L (39-117); Anion Gap 13 (12-20); Aspartate Amino Transferase 37 U/L (5-37); Blood Urea Nitrogen 12 mg/dL (9-16); Calcium 9.4 mg/dL (8.4-10.2); Carbon Dioxide 21 mmol/L (22-29); Chloride 106 mmol/L (96-108); Estimated Glomerular Filt Rate 53; Potassium 4.2 mmol/L (3.3-5.1); Sodium 136 mmol/L (135-145); Total Protein 7.5 g/dL (6.5-8.0)
== END 2025-08-16 06:34 | disposition home or self-care (01) ==
LOC: HO.LAB 06:33
PROVIDERS: PCP Internal Medicine; Visit Provider Internal Medicine
DX: I12.9 Hypertensive chronic kidney disease with stage 1 through stage 4 chronic kidney disease, or unspecified chronic kidney disease (principal); F10.10 Alcohol abuse, uncomplicated; I48.91 Unspecified atrial fibrillation; Z79.01 Long term (current) use of anticoagulants
CPT/HCPCS: 36415; 80053; 85025

== ENCOUNTER 2025-08-31 13:17 | Outpatient (AMB) | payer MEDICARE, SELFPAY ==
[2025-08-31 13:55] VITALS: BP 130/64; PULSE 98; BMI 24.7
--- NOTE | 2025-08-31 13:55 | A.OFFVIS_ITS ---
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 Services: Can Filling Machine Operator Offered & Declined Can Filling Machine Operator Name: spouse Accompanied by: Spouse Allergies avocado (AVOCADO) Allergy (Severe, Verified 07/11/25 23:08) DIFFICULTY BREATHING Medication List - Last Reconciled 08/31/25 by Onofre Gomez MD acetaminophen ER (Tylenol Arthritis Pain) 650 mg PO Q8H 30 days atorvastatin 10 mg PO DAILY colchicine 0.6 mg PO DAILY ketorolac 0.5% 1 drp ophthalmic (eye) TID lidocaine 4% (Aspercreme (lidocaine)) 2 patches topical Q24H methocarbamol 750 mg PO Q8H 7 days metoprolol tartrate 50 mg PO BID oxycodone 5 mg PO Q8H PRN 3 days prednisone 5 mg PO DAILY HPI Comments Details: 85-year-old gentleman who is here for follow-up. He has background history of atrial flutter and atrial fibrillation. He has been in persistent atrial fibrillation and has been treated with rate control strategy. He also has dementia and as per the the memory has been worse. He apparently fell recently and he is saying that he has slipped over something and came to the emergency department. Subsequently his rivaroxaban was discontinued as per the by her primary care physician. She is concerned that he has been falling more frequently and is not telling her because he keeps getting injuries and pains in the body. He currently is complaining of low back pain and she is worried that he has fallen. He also misses the curb while walking and loses his balance. No bleeding otherwise. 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 Patient Tobacco Use Status: Never used Tobacco service: No Current occupational status: retired Review of Systems Const Denies chills, Denies fatigue, Denies fever(s), Denies frequent falls, Denies weakness, Denies weight gain and Denies weight loss ENT Denies dizziness Card Denies chest pain, Denies leg edema, Denies lightheadedness, Denies palpitations, Denies dyspnea and Denies dyspnea on exertion Resp Denies cough, Denies dyspnea and Denies dyspnea on exertion GI Denies hematochezia Musc Denies abnormal gait, Denies muscle weakness, Denies numbness, Denies radiating pain into limb and Denies tingling Neuro Denies abnormal gait, Denies dizziness, Denies frequent falls, Denies numbness, Denies tingling and Denies weakness Endo Denies fatigue and Denies palpitations Physical Exam Vital Signs: Last Vital Signs Pulse 98 08/31/25 13:55 BP 130/64 08/31/25 13:55 BMI result Body Mass Index 24.7 GENERAL APPEARANCE: in no acute distress, pleasant. SKIN: no suspicious lesions, warm and dry. HEART: no murmurs, irregular rate and rhythm. LUNGS: clear to auscultation bilaterally. ABDOMEN: soft, nontender. EXTREMITIES: no edema. PERIPHERAL PULSES: equal. NEUROLOGIC: No gross deficits, AAO X 3 Assessment & Plan Assessment & Plan (1) Afib: Comment: 2019 with cardioversion Code(s): I48.91 - Unspecified atrial fibrillation Category: Medical Plan [age] year gentleman with persistent atrial fibrillation currently being rate controlled with metoprolol tartrate 50 mg twice a day. He was started on Xarelto before but it appears he had a fall and subsequently Xarelto has been stopped. The is concerned that he has been falling more frequently and has not been telling her. The patient is saying that he tripped over something and fell. There is 1 documented fall but as per the he keeps complaining of pains in different spots and so far Xarelto has been discontinued. I have explained to the patient and his that Xarelto is being given to prevent stroke from atrial fibrillation. The is asking what aspirin and I have explained to her that it is not as good as Xarelto. The is more in favor of using aspirin. As mentioned she has already stopped the Xarelto. He will follow up with us in 6 months. Thank you for allowing me to participate in the care of your patient. Please feel free to contact me if you have any questions. Coding Level of Care Code Est Pt Level 4 (19045) Diagnoses Afib I48.91
--- OUTSIDE RECORDS SUMMARY | 2025-08-31 15:46 | XMS_ITS | Clinical Summary ---
Author Organization [address] [place] [address] Address [address] [place] [address] Phone Care Team Providers Care Farm Facility Manager Name Role Phone Krystyna Self MD Primary Care Provider [phone] Allergies Active Allergy Reactions Criticality Noted Date [...] Noted Date Diagnosed Date Hypercholesteremia 10/28/2011 Old PR (myocardial infarction) 08/09/2011 Overview (07/26/2024): Non STEMI 10/09 Glaucoma 10/11/2006 Immunizations Immunization Administration Dates Next Due Influenza trivalent, 0.5mL, preservative free (Fluarix; FluLaval; Fluzone) ages 6mo and older (Afluria) 3 years and older 08/07/2012,09/30/2010 Pneumococcal polysaccharide 23 valent (Pneumovax 23) 2yo and older 09/30/2010 Td Tetanus diptheria (Tdvax) 7yo and older 10/25 Surgical History Surgery Date Site/Laterality Comments OTHER SURGICAL HISTORY PROCEDURE: LA AMP F/TH 09/30 JT/PHALANX W/NEURECT W/DIR CLSR; COMMENT: traumatic amputation distal left 4 fingers Medical History Medical History Date Comments Unspecified glaucoma(365.9) 10/11/2006 DX:U nspecified glaucoma(365.9) Old PR (myocardial infarction) 08/09/2011 D X:Old PR (myocardial infarction) Family History Medical History Relation [...] mg/dL Blood Venous blood specimen / Unknown [facility] Provider LAB BLOOD ORDERABLES Carlene l Result from Last 3 Months or Most Recently Relevant to Health Maintenance Insurance [employer] Care Teams Farm Facility Manager Relationship Specialty Start Date End Date Krystyna Self MD [address] [place] [address] [place] [address] PCP - General 06/16/24
--- OUTSIDE RECORDS SUMMARY | 2025-08-31 15:46 | XMS_ITS | Data Portability ---
Author Organization [place] - [facility] Address [address] [place] [address] Care Team Providers Care Nuclear Scientist Name Role Phone KAIN ESPINOZA Primary Care Provider [phone] [facility] CARE MANAGEMENT OTHER Assessment Encounter [...] Lab SARS CoV 2 RNA (COVID-19), QL, pony rougher-PCR, respiratory specimen 2020 [facility] (Centralized Electronic Ordering - All Locations), Patient Can Go To The Location Of Their Choice, [address] 10:04:34 CBC w/ auto diff 2020 RYAN [facility] (Centralized Electronic Ordering - All Locations), Patient Can Go To The Location Of Their Choice, [id number] 02:56:35 rapid flu (A+B) 2020 [facility], [address], [place], [address], 19:19:09 BMP + ionized calcium, serum or plasma 2020 [facility], [address], [place], [address], 17:56:40 SARS CoV 2 RNA (COVID-19), QL, pony rougher-PCR, respiratory specimen 2020 [email or web address] [facility] (Centralized Electronic Ordering - All Locations), Patient Can Go To The Location Of Their Choice, 15:12:36 Referral None recorded. Procedures None recorded. Surgeries None recorded. Imaging XR, chest, 2 view 2020 [facility] ([facility]), [address] [facility], [place], [address], 15:51:01 Medication Orders acetaminoph en 325 mg [...] (A+B) Flu A negati ve Not Available [facility] [address] [place] [address] [place], [address], 11/24/2020 17:43:56 11/24/19 21 11/24/2020 rapid flu (A+B) Flu B negati ve Not Available [facility] [address] [place], [address], 11/24/2020 17:43:56 11/24/19 21 11/24/2020 rapid flu (A+B) Control Visual ized / Valid Not Available [facility] Home [address] [place], [address], 11/24/2020 17:43:56 11/24/19 21 11/24/2020 BMP + ioniz ed calci um, serum or plasm a glu 122 mg/dL 70-105 Not Available [facility] [address] [place], [address], 11/24/2020 17:56:40 11/24/19 21 11/24/2020 BMP + ioniz ed calci um, serum or plasm a BUN 14 mg/dL 8-26 Not [address] [facility] [address] [place], [address], 11/24/2020 17:56:40 11/24/19 21 11/24/2020 BMP + ioniz ed calci um, serum or plasm a crea 1.3 mg/dL 0.6-1. 3 Not Available [facility] [address] [place], [address], 11/24/2020 17:56:40 11/24/19 21 11/24/2020 BMP + ioniz ed calci um, serum or plasm a Na 131 mmol/ L 138-14 6 Not Available [facility] [address] [place], [address], 11/24/2020 17:56:40 11/24/19 21 11/24/2020 BMP + ioniz ed calci um, serum or plasm a K 4.2 mmol/ L 3.5-4. 9 Not Available [address], [address], 11/24/2020 17:56:40 11/24/19 21 11/24/2020 BMP + ioniz ed calci um, serum or plasm a cL 99 mmol/ L 98-109 Not Available [address], [address], 11/24/2020 17:56:40 11/24/19 21 11/24/2020 BMP + ioniz ed calci um, serum or plasm a TCO2 22 mmol/ L 24-29 Not Available [address], [address], 11/24/2020 17:56:40 11/24/19 21 11/24/2020 BMP + ioniz ed calci um, serum or plasm a angap 15 mmol/ L 10-20 Not Available [address], [address], 11/24/2020 17:56:40 11/24/19 21 11/24/2020 BMP + ioniz ed calci um, serum or plasm a ica 1.15 mmol/ L 1.12-1 .32 Not Available [address], [address], 11/24/2020 17:56:40 11/24/19 21 11/24/2020 BMP + ioniz ed calci um, serum or plasm a HCT 39 %pcv 38-51 Not Available [address], [address], 11/24/2020 17:56:40 11/24/19 21 11/24/2020 BMP + ioniz ed calci um, serum or plasm a Hb 13.3 g/dL 12-17 Not Available [address], [address], 11/24/2020 17:56:40 11/30/19 21 11/30/2020 covid -19 [...] ng. Resul t repor bailey to the [facility]. All test resul ts must be corre lated with clini colleen findi ngs. This test has been autho rized by the FDA under an Emerg ency Use Autho rizat ion (EUA) for use by autho rized labor atori es. Testi ng perfo rmed on the [employer] ic Panth er Aptim a assay utili zing trans cript ion-m ediat ed ampli ficat ion (TMA) . Not Available [facility] (Centralized Electronic Ordering - All Locations) Patient Can Go To The Location Of Their Choice, [address] 11/30/2020 13:24:57 11/30/19 21 11/30/2020 covid -19 (nove l coron aviru s) PCR covid-19 PCR specimen source NASAL Not Available [facility] (Centralized Electronic Ordering - All Locations) Patient Can Go To The Location Of Their Choice, [address] 11/30/2020 13:24:57 11/25/19 21 11/25/2020 XR, chest [...] Bower D.O. 021 3:38:1 2 PM EST. [email or web address] [facility]) [address], [place], [place], [address], 11/30/2020 10:48:04 Result Notes Documentation Provider Name [...] EST. HENOK COHEN NP [address], [place], [address], [place] [facility] 11/30/2020 10:48:04 Procedures Surgical History Date Name Laterality Status Provider Name and Address Organization Details Recorded Time procedure on knee completed MAT[place] MCPHERSON [address] [place], [address], [place] [facility] 11/24/2020 20:15:35 procedure on hand completed MATTHEW MCPHERSON [address] [place], [address], [place] [facility] 11/24/2020 20:15:44 Imaging Results None recorded. Procedure Notes None recorded. Medical Equipment None Reported. Allergies Allergen ID Allergen Name Allergen Category Reaction Reaction Severity Criticality Documentation Date Start Date Code Code System Note Provider Name and Address Organization Details Recorded Time [id number] avocado allergeni c extract food Not available Not available Not available 11/24/2020 55376 2 RxNorm MATTHEW MCPHERSON [address] [place] [address] [facility] [place], [address], [place] [facility] 20:13:57 Medications Name Sig Start Date Stop [...] t Available Vitals Date Recorded Oxygen saturation Heart rate Body temperature Respiratory rate Systolic And Diastolic Provider Name and Address Organization Details Last Updated DateTime 1 97 % 88 /min 102 [degF] 20 /min 120/70 mm[Hg] Not Available [facility] 1 17:36:28 Date Recorded Body temperature Respiratory rate Oxygen saturation Heart rate Systolic And Diastolic Provider Name and Address Organization Details Last Updated DateTime 1 99 [degF] 16 /min 100 % 68 /min 106/58 mm[Hg] Not Available [facility] 15:28:41 Social History Question Answer Notes LastModified by Organizat ion Details LastModified Time Tobacco Smoking Status Former Smoker [place] MCPHERSON [address] [place], [address], [place] [facility] 11/24/2020 20:14:43 Do You Have An Advance Directive? No [email or web address] Information not available 11/24/2020 What Is Your Code Status? Full Code [email or web address] Information not available 11/24/2020 Within The Past 12 Months, Has It Happened That The Food You Bought Just Didn't Last And You Didn't Have Money To Get More. No [email or web address] Information not available 11/24/2020 Within The Past 12 Months, Have You Worried That Your Food Would Run Out Before You Got Money To Buy More. No [email or web address] Information not available 11/24/2020 Fall Risk: Do [...] Visiting Friends Or Family Or Going To Shinto Or Club Meetings) 5 Or More Times Per Week [email or web address] Information not available 11/24/2020 Excessive Alcohol Or Drug Use No [email or web address] Information not available 11/24/2020 We Know From Many Of Our Patients That Covering All Of Their Costs Can Be Difficult At Times. This Can Cause Stress And Impact Health. In The Past Year, Have You Been Unable To Get Any Of The Following When It Was Really Needed? No Information not available 11/24/2020 What Is Your Housing Situation Today? I Have Housing [email or web address] Information not available 11/24/2020 Would You Like Help Connecting To Resources? None Information not available 11/24/2020 Sex: Unknown Functional Status None recorded. Mental Status None recorded. Family History Relationship Description Onset Age of this Age Resolved Age Notes LastModified by Organization Details LastModified Time Father Coronary arterioscler osis [email or web address] Not available 2020 20:14:36 Medical History Condition Response Coronary Artery Disease N COPD N Depression N Diabetes N Cancer N Stroke N Asthma N High Cholesterol Y Pulmonary Embolism N Hypertension Y Kidney Disease N Past Encounters Encounter ID Performer Location Encounter Start Date Encounter Closed Date Diagnosis/Indication Diagnosis SNOMED-CT Code Diagnosis ICD10 Code Diagnosis IMO Codes Diagnosis Note [id number] [facility] [address] [place] [address] 11/24/2020 17:01:15 11/27/2020 10:53:58 Cough with fever 766403544 R05 Exposure t o communicable disease 548169416 Z20.822 [id number] [facility] [address] [place] [address] 11/29/2020 14:31:44 12/04/2020 09:50:17 Exposure to communicable disease 403810568 Z20.822 Health Concerns Section Related Observation LastModified by Organization Detai ls LastModified Time None Recorded Concern Status LastModified by Organization Details LastModified Time None Recorded Advance Directives Directive N: Payers Insurance Date Sequence Insurance Name Policy Number Policy [place] Covered Member ID [place] Member ID Guarantor Name 11/29/2020 1 [facility] - MEDICARE PREFERRED (MEDICARE REPLACEMENT HMO) [facility] Arron Jean Baptiste [id number] Arron Jean Baptiste 11/24/2020 1 [facility] - MEDICARE PREFERRED (MEDICARE REPLACEMENT HMO) [facility] Arron Jean Baptiste [id number] Arron Jean Baptiste 11/24/2020 1 *SELF PAY* Arron Jean Baptiste [id number] Arron Jean Baptiste 11/27/2020 2 MEDICARE [place]: [employer] Arron Jean Baptiste [id number] Arron Jean Baptiste Notes Date Note Type [...] urinary symptoms. MAT[place] MCPHERSON [address], [place], [address], [place] [facility] 11/24/2020 20:24:14 11/29/2020 text/html COVID-19 Symptoms January 2020Reported by Patient This is a 80-year-old male that is known [facility]. He was evaluated on 11/24 for cough and fever. He had a workup included a chest x-ray which is negative and blood work was also negative for infection. He was swabbed for COVID-19. The specimen was lost at the lab. His family is requesting a recollection. HENOK COHEN NP [address], [place], [address], [place] [facility] 12/07/2020 17:10:31
== END 2025-08-31 14:15 | disposition home or self-care (01) ==
LOC: HO.HCS 13:18
PROVIDERS: PCP Internal Medicine; Visit Provider Internal Medicine Cardiovascular Disease
DX: I48.91 Unspecified atrial fibrillation (principal)
CPT/HCPCS: 99214

== ENCOUNTER → 2025-08-31 13:17 | Outpatient (BNVA) | payer MEDICARE, SELFPAY | PROVIDERS: PCP Internal Medicine; Visit Provider Internal Medicine Cardiovascular Disease | DX: I48.91 Unspecified atrial fibrillation (principal); Z79.899 Other long term (current) drug therapy | CPT/HCPCS: 99212 ==

== ENCOUNTER 2025-09-13 09:00 | Emergency (ER) | payer MEDICARE, SELFPAY ==
--- NOTE | ~2025-09-13 | XR_ITS ---
EXAMINATION: XR LUMBOSACRAL SPINE CLINICAL INFORMATION: back pain COMPARISON: CT on 06/14/2019 TECHNIQUE: Three views of the lumbosacral spine. FINDINGS: Minimal atherosclerotic ossifications are evident in the abdominal aorta. There are 5 non-rib bearing lumbar segments. There is a scoliosis. T12-L1: There is degenerative endplate irregularity and mild concavity of the inferior endplate of T12. The appearance was similar on CT 06/14/2019 L1-L2: There are endplate osteophytes. Convexity of inferior endplate of L1 is unchanged since 2019. L2-L3: There are endplate osteophytes and small facet osteophytes. Concavity of superior and inferior endplate of L2 is stable since 2019. L3-L4: There is subtle retrolisthesis with endplate osteophytes and mild facet sclerosis. L4-L5: There is subtle anterolisthesis with small endplate osteophytes as well as facet sclerosis and osteophytes. L5-S1: There is subtle anterolisthesis with endplate osteophytes with facet sclerosis and osteophytes. XR/XR lumbar spine 2-3V IMPRESSION: Mild degenerative disease and moderate facet osteoarthritis. Electronically signed by: Hiro Valdes MD 09/13/2025 11:39 AM EST
--- NOTE | ~2025-09-13 | XR_ITS ---
EXAMINATION: XR SACRUM AND COCCYX CLINICAL INFORMATION: pain COMPARISON: None available. TECHNIQUE: 2 views of the sacrum and 2 views of the coccyx were obtained. FINDINGS: Mild degenerative changes are present in the SI joints with small marginal osteophytes. No fracture line or deformity is evident. Degenerative changes are present in the lower lumbar spine with facet sclerosis and osteophytes and mild disc space narrowing with vertebral body osteophytes. There are also mild to moderate degenerative changes in both hip joints. XR/XR sacrum coccyx min 2V IMPRESSION: There are degenerative changes in the SI joints, bilateral hips, and the lumbar spine. Electronically signed by: Hiro Valdes MD 09/13/2025 11:33 AM [facility]
--- NOTE | ~2025-09-13 | CT_ITS ---
CLINICAL HISTORY: low back pain CT lumbar spine without contrast Comparison: CR/SR - XR LUMBAR SPINE 2-3 VIEWS - 09/13/25 11:19 EST Findings: Normal vertebral body alignment. Eypu-qq-rnscoqxk osteopenia. L4-5: Grade 1 anterolisthesis of L4 over L5. Broad-based disc bulge with moderate central canal stenosis and ikrc-ii-mznnyxqz bilateral neural foraminal stenosis. L5-S1: Broad-based disc bulge with moderate central canal stenosis and moderate bilateral neural foraminal stenosis with impingement of the exiting L5 nerve roots. Subacute wedge compression fracture of the central portion of the L5 vertebral body with less than 50% vertebral body height loss. Mild calcified atherosclerotic disease of the abdominal aorta. 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 IMPRESSION: 1. Subacute L5 vertebral body wedge compression fracture with less than 50% height loss. 2. L5-S1 broad-based disc bulge with moderate central canal stenosis and moderate bilateral neural foraminal stenosis, impinging on exiting L5 nerve roots. 3. L4-5 grade 1 anterolisthesis with broad-based disc bulge, moderate central canal stenosis, and duzn-gd-cuxehgss bilateral neural foraminal stenosis. 4. 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 5. Svvl-bc-jechrstj osteopenia. This document has been electronically signed by: Luis Carlos Dowling MD on 09/13/2025 21:10:32
--- NOTE | ~2025-09-13 | XR_ITS ---
EXAMINATION: XR KNEE, LEFT CLINICAL INFORMATION: pain COMPARISON: 06/08/2021 x-ray and CT on 07/11/2025 TECHNIQUE: Four views of the left knee. FINDINGS: There is severe narrowing of the lateral compartment and moderate narrowing of the medial compartment, similar to the prior. There is mild medial subluxation of the distal femur. There is subchondral sclerosis in the medial compartment. There are tricompartmental marginal osteophytes. There is chondrocalcinosis in the body of the medial meniscus There is a joint effusion, similar to the prior. There are coarse ossifications projecting in the soft tissues lateral to the femoral metaphysis are located in the suprapatellar pouch, confirmed by CT on 07/11/2025. XR/XR knee LT 3V IMPRESSION: Severe osteoarthritis and knee joint effusion with intra-articular osteochondral bodies visible in the lateral suprapatellar pouch. Chondrocalcinosis. Electronically signed by: Hiro Valdes MD 09/13/2025 11:43 AM [facility]
[2025-09-13 09:15] VITALS: BP 140/88; BP 153/99; PULSE 76; PULSE 91; RESP 18; TEMP 37; O2SAT 96; O2SAT 98; BMI 25.6
--- NOTE | 2025-09-13 10:51 | ED.GENADULT ---
HPI - General Adult General Chief complaint: Back Pain/Injury Stated complaint: back pain, l knee swelling, hx of dementia Time Seen by Provider: 09/13/25 10:36 Source: patient and RN notes reviewed Mode of arrival: ambulatory Limitations: no limitations History of Present Illness ED Provider: Lorin Mcadams PA-C HPI narrative: This is a 85-year-old male, with a past medical history of AFib, hyperlipidemia, and hypertension, who presents emergency department with concerns of back pain. patient here with . Patient states that symptoms began approximately 2 weeks ago after reportedly slipped on a banana peel while leaving a store and landed on his back. states that this did not occur, and states that he did not have a fall. Patient states that he continues to have persistent low back pain. reports that she is concerned as he has now had difficulty with ambulation due to the pain in his back. Patient also reporting some left knee pain. reports that patient developed severe back pain after applying his socks. Patient reports right now he has no back pain however does report some left leg pain. He denies any urinary or bowel retention or incontinence. No saddle anesthesia. Denies any fevers, chills, chest pain, shortness of breath, abdominal pain, nausea, vomiting or diarrhea. MD complaint: Back pain Onset (ago): day(s) Severity: moderate Quality: aching Pain Consistency: constant Relieving factors: none Exacerbating factors: none Associated symptoms: denies other symptoms Treatments prior to arrival: none Related Data Previous Rx's ?Medication ?Instructions ?Recorded atorvastatin 10 mg tablet 10 mg PO DAILY #30 tabs 06/28/24 metoprolol tartrate 50 mg tablet 50 mg PO BID #180 tabs 08/03/24 oxycodone 5 mg tablet 2.5 mg (1/2 x 5 mg) PO Q6H PRN 09/15/25 severe pain (scale score 7-10) 3 days #12 tabs Allergies Allergy/AdvReac Type Severity Reaction Status Date / Time avocado (AVOCADO) Allergy Severe DIFFICULTY Verified 09/13/25 09:18 BREATHING Review of Systems Review of Systems: Constitutional : No Fever, No Chills ENT/Mouth : No sore throat, No Rhinorrhea Eyes: No Eye Pain, No Swelling, No Redness Cardiovascular : No Chest Pain, No SOB Respiratory : No Cough, No Sputum Gastrointestinal : No Nausea, No Vomiting, No Diarrhea, No abdominal Pain Genitourinary : No Dysuria, No Hematuria Musculoskeletal : +joint pain, No Myalgias, +Joint Swelling Skin : No Skin Lesions Neuro : No Weakness, No Numbness, No Headache All other systems reviewed and are negative Yes all other systems are reviewed and are negative Constitutional: Constitutional: Reports as per [facility] Past Medical History Attestation statement: The following information was validated with the patient. Medical History Afib Amputation of left index finger Hyperlipidemia Hypertension Family History Family History Mother Hypertension Father Heart disease Social History Social History Household Members: Spouse Housing: Apartment Do you presently have visiting nurse or other home services: No Unable to assess alcohol history related to: Unknown Alcohol intake: current Alcohol intake frequency: 3 or more drinks per day Alcohol type: beer and hard liquor Comment: Utilized [employer] for Education Patient Tobacco Use Status: Never used Tobacco Smoked in Last 30 Days: No Use of substances other than those prescribed or required for medical reasons: Unknown Advance Directives: No Advance Directives Information Provided: Yes service: No Current occupational status: retired Physical Exam ED Vital Signs: Vital Signs - 24 hr 09/14/25 14:05 09/14/25 19:19 09/14/25 20:13 Temperature 97.9 F 99.9 F Pulse Rate 86 98 98 Respiratory Rate 16 12 Blood Pressure 170/96 H 158/94 H 158/94 H Pulse Oximetry 96 98 Oxygen Delivery Method Room Air Room Air 09/15/25 06:00 09/15/25 08:29 09/15/25 08:30 Temperature 97.9 F Pulse Rate 87 81 81 Respiratory Rate 14 16 Blood Pressure 123/68 113/66 113/66 Pulse Oximetry 93 97 Oxygen Delivery Method Room Air Room Air BMI result Body Mass Index 25.6 Const General: cooperative, comfortable and no acute distress Orientation/consciousness: patient oriented x3 Limitations: no limitations HENMT Head: Yes normal to inspection, Yes normocephalic and Yes atraumatic Ears: hearing grossly normal bilaterally General nose exam: Normal external nose present Face and sinus: Yes normal facial exam Mouth: Normal oral and palatal mucosa present, oropharynx normal and moist mucous membranes Throat: Yes posterior oropharynx normal Eyes General: appearance normal, both eyes and all related structures Eyelids: Yes eyelids normal Conjunctivae: conjunctivae normal Sclerae: sclerae normal Pupils: Equal, round and reactive pupils present EOM: EOMs intact bilaterally Neck Neck: Yes normal visual inspection, Yes full ROM and Yes no lymphadenopathy Lymphatic: no lymphadenopathy noted Chest Chest palpation & inspection: normal inspection of the chest Resp Effort & Inspection: normal respiratory effort and able to speak in complete sentences Auscultation: clear to auscultation bilaterally, no crackles, no rales, no rhonchi and no wheezes Cardio Rate: regular rate Rhythm: regular rhythm Heart sounds: S1 normal heart sound present and S2 normal heart sound present GI Other: Abdomen is soft, nontender, nondistended Inspection: Yes normal to inspection Back/Spine/Pelvis Other: no midline spine tenderness, no tenderness palpation throughout the entire back. Skin General skin exam: no rashes or lesions noted Trauma: no lacerations or abrasions Wounds: no wounds Neuro General: patient oriented x3 and moves all extremities Cranial nerves: Yes Equal, round and reactive pupils present Extrem Other: left knee with moderate edema noted to the medial and lateral aspect, with mild tenderness palpation. Able to flex and extend at the knee. Strong DP pulse. No surrounding erythema or warmth. General: Yes normal to inspection Right upper extremity: normal to inspection Left upper extremity: normal to inspection Right lower extremity: normal to inspection Left lower extremity: normal to inspection Course Course Course Narrative: 9:17 PM 09/13/2025 (Piedad Colón NP): Attending provider Dr. Bella received a phone call from radiology to review this patient's imaging. I was asked by the previous provider to review the imaging. The report shows some disc compression and mild bulging, however the patient is currently ordered for PT, case management consultation which I found appropriate at this time. He can be seen by orthopedics/ortho-spine outpatient but does not require inpatient admission at this time. Will proceed with plan. IMPRESSION: 1. Subacute L5 vertebral body wedge compression fracture with less than 50% height loss. 2. L5-S1 broad-based disc bulge with moderate central canal stenosis and moderate bilateral neural foraminal stenosis, impinging on exiting L5 nerve roots. 3. L4-5 grade 1 anterolisthesis with broad-based disc bulge, moderate central canal stenosis, and [id number] bilateral neural foraminal stenosis. 4. 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 5. [id number] osteopenia. Reevaluation(s) Reevaluation #1: 6:08 AM 09/14/2025 (Zoë GARCIA): This provider was contacted by RN and asked to discuss CT results with the patient's daughter Denia, this provider had an extensive discussion with Nhan regarding the patient's CT results showing a subacute L5 vertebral body fracture with some disc bulge and nerve root impingement but without clinical evidence of cauda equina. Patient's daughter was educated that this is likely the source of the patient's pain, however seeing as the patient has no signs and symptoms of cauda equina, and pain is being controlled with oral medications, not requiring IV intervention, there was no indication for admission to the hospital at this time, and we will continue with current plan of care for case management and PT consultation. Patient's daughter Denia stated her understanding of the care plan and appreciation for review of the CT. 09 Chayo Neal PA-C ---> Observation continues. Case management continues to follow. 175 Chayo Neal PA-C ----> Informed patient is sundowning, becoming increasingly agitated. Patient has previously received Zyprexa PO. Patient ordered BID Zyprexa 5mg PO PRN for agitation. Observation continues. Time: 08:19 Date: 09/15/25 Provider: Juani Garrido PA-C Patient in physician observation for case management needs. Patient sundowned last night, was given zyprexa. he had trouble sleeping secondary to pain, he was given melatonin and oxy. VS stable. Patient is pending placement PT/CM eval. Will continue to monitor. Time: 13:02 Date: 09/15/25 Provider: Juani Garrido PA-C Physician observation ended at 12:15. Patient has been cleared for discharge by the CARE team. Patient to be placed at a [facility] facility. Medications Administered Generic Name Dose Route Start Last Admin Trade Name Freq PRN Reason Stop Dose Admin Atorvastatin Calcium 10 mg 09/14/25 09:00 09/15/25 08:30 Atorvastatin Calcium 10 Mg Tablet PO 10 mg DAILY LEONEL Administration Enoxaparin Sodium 40 mg 09/14/25 09:00 09/15/25 08:31 Enoxaparin Sodium 40 Mg/0.4 Ml Syringe SUBCUT 40 mg DAILY LEONEL Administration Melatonin 6 mg 09/13/25 19:07 09/14/25 20:13 Melatonin 3 Mg Tablet PO 6 mg BEDTIME PRN Administration Sleep Metoprolol Tartrate 50 mg 09/13/25 21:00 09/15/25 08:30 Metoprolol Tartrate 50 Mg Tablet PO 50 mg BID LEONEL Administration Protocol Olanzapine 5 mg 09/14/25 17:38 09/14/25 18:20 Olanzapine 5 Mg Tablet PO 5 mg BID PRN Administration agitation Oxycodone HCl 2.5 mg 09/13/25 19:38 09/14/25 05:53 Oxycodone Hcl Immed Release 5 Mg Tablet PO 2.5 mg Q6H PRN Administration Pain, Severe (Pain Scale 7-10) Discontinued Medications Generic Name Dose Route Start Last Admin Trade Name Freq PRN Reason Stop Dose Admin Acetaminophen 650 mg 09/13/25 17:04 09/13/25 17:35 Acetaminophen 325 Mg Tablet PO 09/13/25 17:05 650 mg ONCE ONE Administration Diphenhydramine HCl 50 mg 09/13/25 23:05 09/13/25 23:50 Diphenhydramine Hcl 25 Mg Capsule PO 09/13/25 23:06 50 mg ONCE ONE Administration Lidocaine 1 patch 09/13/25 17:04 09/13/25 17:35 Lidocaine 4 % Patch Adh..Patch TRANSDERMA 09/13/25 17:05 1 patch ONCE ONE Administration Protocol Olanzapine 5 mg 09/13/25 23:05 09/13/25 23:50 Olanzapine 5 Mg Tablet PO 09/13/25 23:06 5 mg ONCE ONE Administration Medical Decision Making Medical Decision Making MDM Narrative: This is a 85-year-old male, with a past medical history of AFib, hyperlipidemia, and hypertension, who presents emergency department with concerns of back pain. patient here with . On arrival, patient is well-appearing, alert and oriented x4, under no acute distress. Blood pressure mildly elevated 153/99, all other vital signs within normal limits. Patient reporting no back pain currently, does report some left knee pain. This is unclear if he actually had a mechanical fall 2 weeks ago, per this did not occur and reports that he has a history of dementia and therefore is a poor historian. brought patient in as he was complaining of this pain has been causing him to have increased difficulty with ambulation. Strength 5/5 in lower extremities. No back pain red flags on history or physical. Presentation not consistent with malignancy (lack of history of malignancy, lack of B symptoms), fracture (no trauma, no bony tenderness to palpation), cauda equina syndrome (no bowel or urinary incontinence/retention, no saddle anesthesia, no distal weakness), renal colic, pyelonephritis (afebrile, no CVAT, no urinary symptoms). 3:14 PM 09/13/2025 (Lorin Mcadams PA-C): Labs reveal no leukocytosis, H&H reveal no acute abnormalities. T bili slightly increased at 2.1 however patient has a history of this, no abdominal pain. Urine with trace leuk esterases, otherwise unremarkable. X-rays revealed no acute findings. Left knee x-ray shows severe osteoarthritis with effusion, he has full range of motion of the knee, we will follow-up with Orthopedics. I discussed with and patient that given increased challenges with ambulation due to pain and back and left knee, patient is agreeable to be assessed by Physical therapy and case management. Patient placed in physician observation pending overall workup. 1940 - Daughter at bedside concerned about level of discomfort pt is having in back. Daughter reports that patient had 2 falls several weeks ago. I reassessed patient, reporting more pain in L spine than what he initially had. Discussed with patient and daughter that pt does not qualify for MRI in the ED. Will treat with prednisone and oxycodone prn. Will also obtain CT of the back to ensure no acute fractures seen not seen on imaging. Left knee wrapped with nasir wrap. Physician Observation continues for pt/cm. Differential Diagnosis Differential Diagnoses: The differential diagnosis associated with the presentation includes Admission/Observation Consideration of admission/observation: Escalation of care including admission/observation considered Lab Data [facility] Lab Attestation statement: I reviewed the patient's lab results. see [facility] 09/13/25 12:00 09/13/25 12:00 Labs: Lab Results 12/09/13/25 09/13/25 Range/Units 12:00 13:34 15:33 WBC 6.9 (4.8-10.8) X10*3/uL RBC 4.05 L (4.60-5.80) X10*6/uL Hgb 14.2 (14.0-18.0) g/dl Hct 42.0 (42.0-52.0) % MCV 103.7 H (80.0-98.0) fL MCH 35.1 H (27.0-33.0) pg MCHC 33.8 (31.0-36.0) g/dl RDW 12.4 (11.0-16.0) % Plt Count 148 L (160-400) X10*3/uL MPV 9.6 (9.4-12.4) fL Immature Gran % (Auto) 0.3 (0.0-0.4) % Neut % (Auto) 73.8 H (45-73) % Lymph % (Auto) 16.3 L (20-40) % [place] % (Auto) 8.3 (2-11) % Eos % (Auto) 0.7 (0-4) % Baso % (Auto) 0.6 (0-2) % Lymph # (Auto) 1.1 L (1.2-4.9) X10*3/uL [place] # (Auto) 0.6 (0.1-1.2) X10*3/uL Eos # (Auto) 0.1 (0.0-0.4) X10*3/uL Baso # (Auto) 0.0 (0.0-0.2) X10*3/uL Abs Immat Gran (auto) 0.02 (0.00-0.03) X10*3/uL Absolute Neuts (auto) 5.1 (2.0-8.3) x10*3/uL Absolute Nucleated RBC 0.000 (0.0-0.012) X10*3/uL Nucleated RBC % (auto) 0.0 (0.0-0.2) /100WBC Sodium 136 (135-145) mmol/L Potassium 4.9 (3.3-5.1) mmol/L Chloride 107 (96-108) mmol/L Carbon Dioxide 19 L (22-29) mmol/L Anion Gap 15 (12-20) BUN 15 (9-16) mg/dL Creatinine 1.40 (0.5-1.4) mg/dL Estim Creat Clear Calc 32.8 Estimated GFR 48 Random Glucose 109 (60-115) mg/dL Calcium 9.7 (8.4-10.2) mg/dL Magnesium 2.3 (1.6-2.6) mg/dL Total Bilirubin 2.1 H (0.0-1.0) mg/dL Direct Bilirubin 0.8 H (0.0-0.5) mg/dL AST 29 (5-37) U/L ALT 11 (0-40) U/L Alkaline Phosphatase 123 H (39-117) U/L Total Protein 7.6 (6.5-8.0) g/dL Albumin 3.7 (3.5-5.0) g/dL Urine Color Dark Yellow Urine Appearance Clear Urine pH 7.0 (5.0-9.0) Ur Specific [place] 1.015 (1.005-1.025) Urine Protein Trace (Neg-Trace) mg/dL Urine Glucose (UA) Negative (Negative) mg/dL Urine Ketones Negative (Negative) mg/dL Urine Blood Negative (Negative) Urine Nitrite Negative (Negative) Ur Leukocyte Esterase Trace H (Negative) Urine RBC 0-2 (0-2) /HPF Urine WBC 0-5 (0-5) /HPF Ur Squamous Epith Cells 0-2 (0-2) /HPF Urine Bacteria None Seen (None Seen) Hyaline Casts 0-2 (0-2) /LPF COVID-19 (JUAN ANTONIO) Negative (Negative) COVID-19 Clin Com See Note Radiology Impression Discussion of test interpretation with radiology: I have reviewed the radiologist's reading. Radiologist Impression: COMPARISON: None available. TECHNIQUE: 2 views of the sacrum and 2 views of the coccyx were obtained. FINDINGS: Mild degenerative changes are present in the SI joints with small marginal osteophytes. No fracture line or deformity is evident. Degenerative changes are present in the lower lumbar spine with facet sclerosis and osteophytes and mild disc space narrowing with vertebral body osteophytes. There are also mild to moderate degenerative changes in both hip joints. XR/XR sacrum coccyx min 2V IMPRESSION: There are degenerative changes in the SI joints, bilateral hips, and the lumbar spine. Electronically signed by: Hiro Valdes MD 09/13/2025 11:33 AM EST EXAMINATION: XR LUMBOSACRAL SPINE CLINICAL INFORMATION: back pain COMPARISON: CT on 06/14/2019 TECHNIQUE: Three views of the lumbosacral spine. FINDINGS: Minimal atherosclerotic ossifications are evident in the abdominal aorta. There are 5 non-rib bearing lumbar segments. There is a scoliosis. T12-L1: There is degenerative endplate irregularity and mild concavity of the inferior endplate of T12. The appearance was similar on CT 06/14/2019 L1-L2: There are endplate osteophytes. Convexity of inferior endplate of L1 is unchanged since 2019. L2-L3: There are endplate osteophytes and small facet osteophytes. Concavity of superior and inferior endplate of L2 is stable since 2019. L3-L4: There is subtle retrolisthesis with endplate osteophytes and mild facet sclerosis. L4-L5: There is subtle anterolisthesis with small endplate osteophytes as well as facet sclerosis and osteophytes. L5-S1: There is subtle anterolisthesis with endplate osteophytes with facet sclerosis and osteophytes. XR/XR lumbar spine 2-3V IMPRESSION: Mild degenerative disease and moderate facet osteoarthritis. Electronically signed by: Hiro Valdes MD 09/13/2025 11:39 AM EST Dictated By: Hiro Valdes MD FINDINGS: There is severe narrowing of the lateral compartment and moderate narrowing of the medial compartment, similar to the prior. There is mild medial subluxation of the distal femur. There is subchondral sclerosis in the medial compartment. There are tricompartmental marginal osteophytes. There is chondrocalcinosis in the body of the medial meniscus There is a joint effusion, similar to the prior. There are coarse ossifications projecting in the soft tissues lateral to the femoral metaphysis are located in the suprapatellar pouch, confirmed by CT on 07/11/2025. XR/XR knee LT 3V IMPRESSION: Severe osteoarthritis and knee joint effusion with intra-articular osteochondral bodies visible in the lateral suprapatellar pouch. Chondrocalcinosis. Electronically signed by: Hiro Valdes MD 09/13/2025 11:43 AM [facility] Dictated By: Hiro Valdes MD Discharge Plan Discharge Clinical Impression: Back pain, Osteoarthritis of left knee, Compression fracture of lumbar vertebra Patient Disposition: er [facility] Prescriptions: New oxycodone 5 mg tablet 2.5 mg PO Q6H PRN (Reason: severe pain (scale score 7-10)) 3 Days Qty: 12 0RF Rx Instructions: Partial Fill upon patient request. No Action metoprolol tartrate 50 mg tablet 50 mg PO BID Qty: 180 3RF atorvastatin 10 mg tablet 10 mg PO DAILY Qty: 30 5RF Referrals: Rubi Medel [place] [Outside] Print Language: Danish
--- OUTSIDE RECORDS SUMMARY | 2025-09-13 11:20 | XMS_ITS | Clinical Summary ---
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
[2025-09-13 12:01] VITALS: BP 154/92; PULSE 83; RESP 14; TEMP 36.4; O2SAT 98
[2025-09-13 12:07] LABS: MANUAL DIFF FLAG NO
[2025-09-13 12:11] LABS: Hematocrit 42.0 % (42.0-52.0); Hemoglobin 14.2 g/dl (14.0-18.0); Imm Gran Abs Auto 0.02 X10*3/uL (0.00-0.03); Imm Gran Pct Auto 0.3 % (0.0-0.4); Lymphocytes Absolute Auto 1.1 X10*3/uL (1.2-4.9); Mean Corpuscular HGB Conc 33.8 g/dl (31.0-36.0); Mean Corpuscular Hemoglobin 35.1 pg (27.0-33.0); Mean Corpuscular Volume 103.7 fL (80.0-98.0); NRBC Abs Auto 0.000 X10*3/uL (0.0-0.012); NRBC Pct Auto 0.0 /100WBC (0.0-0.2); Platelet Count 148 X10*3/uL (160-400); Red Blood Count 4.05 X10*6/uL (4.60-5.80); White Blood Count 6.9 X10*3/uL (4.8-10.8)
[2025-09-13 12:33] LABS: Alanine Aminotransferase 11 U/L (0-40); Albumin Level 3.7 g/dL (3.5-5.0); Alkaline Phosphatase 123 U/L (39-117); Anion Gap 15 (12-20); Aspartate Amino Transferase 29 U/L (5-37); Blood Urea Nitrogen 15 mg/dL (9-16); Calcium 9.7 mg/dL (8.4-10.2); Carbon Dioxide 19 mmol/L (22-29); Chloride 107 mmol/L (96-108); Creatinine Clr Calc Pharmacy 32.8; Estimated Glomerular Filt Rate 48; Magnesium 2.3 mg/dL (1.6-2.6); Potassium 4.9 mmol/L (3.3-5.1); Sodium 136 mmol/L (135-145); Total Protein 7.6 g/dL (6.5-8.0)
[2025-09-13 13:33] VITALS: PULSE 82; RESP 16; TEMP 36.9; O2SAT 96
[2025-09-13 13:34] VITALS: BP 166/99
[2025-09-13 13:42] LABS: Appearance Urine Clear; Glucose Urine UA Negative (Negative); PH 7.0 (5.0-9.0); Specific Gravity - Urine 1.015 (1.005-1.025); UMIC TRIGGER UACC YES
[2025-09-13 15:54] LABS: COVID-19 Test Negative (Negative); IDNOW Serial# 58CA691E
--- NOTE | 2025-09-13 16:11 | PC.NURSE ---
RN to RN with Megan in OV. Pt awaits placement at [facility]. Has been seen by PT.
--- NOTE | 2025-09-13 16:37 | MHC.CM.ED ---
CM met with patient to discuss discharge planning. procurement representative used as patient is Swedish speaking only. Pt lives with his He uses a can. They have no services at home. Monthly RN visits from insurance. Pt reports falling in the snow. People helped him up. Has back pain. PT saw patient. Recommending [facility] as patient could barely move without pain. Medical work up negative. HCP on file. Pt requests his be called when we find [facility] for him. Kalpana ([phone]). Pt was at [facility] in June. [facility] is patient's first choice. Will place local referrals.
[2025-09-13 16:56] VITALS: BP 155/97; PULSE 98; RESP 14; O2SAT 98
[2025-09-13] MEDS: Lidocaine 4 % Patch ADH..PATCH 1 PATCH TRANSDERMA (17:35)
--- NOTE | 2025-09-13 17:46 | PC.NURSE ---
Attempt to call both patient and daughter on file for assist with med rec as patient cannot recall daily medications. Unable to reach either green party.
--- NOTE | 2025-09-13 19:31 | PC.NURSE ---
JOSE Padgett to bedside to discuss plan of care with daughter per her request
--- NOTE | 2025-09-13 19:55 | PC.NURSE ---
Left knee TARA wrapped per order for swelling and pain. Pt to CT at this time
[2025-09-13 19:56] VITALS: BP 162/98; PULSE 91; RESP 18; TEMP 36.8; O2SAT 99
[2025-09-13] MEDS: oxyCODONE HCl Immed Release 5 MG TABLET 2.5 MG PO (20:18)
--- NOTE | 2025-09-13 21:00 | PC.NURSE ---
Pt with relief of pain enough to sit up in bed and eat dinner brought in by daughter. Pt appears much more comfortable.
--- NOTE | 2025-09-13 23:50 | PC.NURSE ---
Pt Medicated per nov, Unable to scan medication due to computer issues.
--- NOTE | 2025-09-13 23:57 | PC.NURSE ---
Pt daughter Briseyda called, wanted CT results, notified JOSE Christine via tiger and gave contact number.
--- NOTE | 2025-09-14 00:40 | PC.NURSE ---
Pt sleeping at this time. bed alarm on Fall risk in place.
--- NOTE | 2025-09-14 04:20 | PC.NURSE ---
pt sleeping, no sign of distress
--- NOTE | 2025-09-14 05:30 | PC.NURSE ---
JOSE Christine was not covering Pt, Did Notify JOSE Herbert, about pt daughter wanting to go over CT results.
[2025-09-14] MEDS: oxyCODONE HCl Immed Release 5 MG TABLET 2.5 MG PO (05:53)
--- NOTE | 2025-09-14 05:57 | PC.NURSE ---
Medicated pt for back pain
[2025-09-14 06:03] VITALS: BP 157/94; PULSE 87; RESP 18; TEMP 37.1; O2SAT 99
--- NOTE | 2025-09-14 06:36 | PC.NURSE ---
provider updated daughter ct contract.
--- NOTE | 2025-09-14 08:30 | MHC.CM.ED ---
Patient remains in ER overflow. Physical therapy eval completed. Short term rehab is recommended. [facility] [place] is 1st choice. They are able to offer a bed and are in the process of obtaining ins auth. Continue to monitor for d/c needs.
[2025-09-14 14:05] VITALS: BP 170/96; PULSE 86; RESP 16; TEMP 36.6; O2SAT 96
--- NOTE | 2025-09-14 16:22 | PC.NURSE ---
pt changed and repositioned in bed
--- NOTE | 2025-09-14 18:26 | PC.NURSE ---
pt agitated and non-compliant with care. incontinent but did not allow staff to assist. swinging arms and attempting to grab staff. pt bed linens eventually changed. and pt cleaned. pt not oriented to situation. PA notified, prn zyprexa given per orders
[2025-09-14 19:19] VITALS: BP 158/94; PULSE 98; RESP 12; TEMP 37.7; O2SAT 98
[2025-09-14 20:13] VITALS: BP 158/94; PULSE 98
--- NOTE | 2025-09-14 22:49 | PC.NURSE ---
Assumed care of pt at 1900. PT resting quietly, Alert to self only. VSS, Skin appropriate for ethnicity having period of confusion and not able to follow commands. PT in briefs d/t incontinence and unable to follow commands to utlize commode or bed reyes, and interference with purewick. PT medicated as per NOV. Repositioned, and compression boots being utilized. Encouraged PO fluid intake to prevent dehydration. PT having difficulty using straws and drinking from cups. Benefits from hand to hand assistance and providing small sips at a time. Spoke with Daughter to provide update on his status. She believes his increase in confusion is due to being in an unfamiliar place. Noted that [facility] is awaiting ins authos. Safety precautions in place.
[2025-09-15 06:00] VITALS: BP 123/68; PULSE 87; RESP 14; TEMP 36.6; O2SAT 93
[2025-09-15 08:29] VITALS: BP 113/66; PULSE 81; RESP 16; O2SAT 97
[2025-09-15 08:30] VITALS: BP 113/66; PULSE 81
--- NOTE | 2025-09-15 09:04 | MHC.CM.ED ---
Patient remains in ER overflow. [facility] [place] is in the process of obtaining ins auth for STR. Continue to monitor for d/c needs.
--- NOTE | 2025-09-15 09:33 | PHA.MEDREC ---
Pharmacy Consult ? Medication Reconciliation Pharmacy reviewed med rec done by nursing. Claims match.
--- NOTE | 2025-09-15 09:56 | PC.NURSE ---
Assumed care of pt at 0700. Pt resting quietly in bed. at bedside and assisting pt with breakfast. Poor PO intake. Encourage PO fluids. Depends dry. VSS. Pt took morning meds whole with water. Bed in lowest position with alarm on. Plan of care ongoing
--- NOTE | 2025-09-15 11:43 | MHC.CM.ED ---
Insurance auth has been obtained by [facility]. Romario SINGHS booked for 1230pm. Patient, daughter Angela Loza RN and Juani JOSE aware. Continue to monitor for d/c needs.
--- NOTE | 2025-09-15 12:17 | PC.NURSE ---
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
== END 2025-09-15 22:35 | disposition skilled nursing facility (03) ==
PROVIDERS: Physician Assistant Medical; Emergency Provider Emergency Medicine Emergency Medical Services; PCP Internal Medicine
DX: M48.56XA Collapsed vertebra, not elsewhere classified, lumbar region, initial encounter for fracture (principal); M17.12 Unilateral primary osteoarthritis, left knee; I48.91 Unspecified atrial fibrillation; I10 Essential (primary) hypertension; F03.90 Unspecified dementia, unspecified severity, without behavioral disturbance, psychotic disturbance, mood disturbance, and anxiety; Z91.81 History of falling; Z79.899 Other long term (current) drug therapy
CPT/HCPCS: 36415; 72100; 72131; 72220; 73562; 80048; 80076; 81001; 83735; 85025; 87635; 96372; 97162; 99285; J1650

== ENCOUNTER → 2025-09-13 11:08 | Outpatient (BNV) | payer MEDICARE, SELFPAY | PROVIDERS: Emergency Provider Emergency Medicine Emergency Medical Services; PCP Internal Medicine; Visit Provider Radiology Diagnostic Radiology | DX: S32.050A Wedge compression fracture of fifth lumbar vertebra, initial encounter for closed fracture (principal); I70.1 Atherosclerosis of renal artery; M51.360 Other intervertebral disc degeneration, lumbar region with discogenic back pain only; M47.816 Spondylosis without myelopathy or radiculopathy, lumbar region; M17.12 Unilateral primary osteoarthritis, left knee; M25.462 Effusion, left knee; M53.3 Sacrococcygeal disorders, not elsewhere classified; M16.0 Bilateral primary osteoarthritis of hip | CPT/HCPCS: 72100; 72131; 72220; 73562 ==